=== PATIENT | male | born 1960 | race Caucasian/White ===

== ENCOUNTER 2023-12-06 09:13 | Emergency (ER) | payer BC, SELFPAY ==
[2023-12-06] VITALS (7 sets, daily range): BP systolic 111–216; BP diastolic 66–103; BMI 26.2
[2023-12-06 09:43] LABS: Glucose - Point of Care 232 mg/dl (70-99)
[2023-12-06] MEDS: ZOFRAN 4 MG IV (09:49)
[2023-12-06] MEDS: NSS 1000 IV (09:49)
--- NOTE | 2023-12-06 09:49 | ED.GENMED ---
History of Present Illness
General
Chief Complaint: Blood Pressure Problem
Source: patient and records
Exam Limitations: none
Time Seen by Provider: 12/06/23 09:47
Nursing documentation reviewed up to this point in time: agreed with
Travel History
Have you had any contact with someone who has COVID-19?: No
Do you have any symptoms of coronavirus? Fever > 100 degrees, chills, cough, shortness of breath, sore throat, loss of taste or smell, muscle aches, or headache?: No
History of Present Illness
History of Present Illness:
63 yo male with IDDM, HTN, HLD, PAD, R leg bypass 2019, Left fem pop bypass, former tobacco smoker quit a year ago and started vaping. About 7 weeks ago added marijuana vapes occasionally. Past two nights 'I hit it hard' taking 8 hits instead of 2
of the marijuana vapes. Denies chest pain or SOB, denies abdominal pain other than muscle soreness from vomiting. Started vomiting yesterday a.m. and has been vomiting frequently since, no sleep last night due to vomiting. Started noting dark emesis
this a.m. Denies fever, had a few small diarrheal stools past few days. No blood or change in stool color.
Past History
Past History
ED Past Medical History: HTN, Hypercholesterolemia, IDDM and Other (Peripheral artery disease, Anemia, Pancreatitis)
ED Past Surgical History: Other (Right popliteal stent February 2018)
Social History
Tobacco: Smoker
Alcohol: None
Drug: Marijuana
Personal: Single
Living: with family
Family History
Family History: Diabetes and Hypertension
Review of Systems
Review of Systems
Allergies reviewed?: Yes
All Other Systems: ROS reviewed and negative except as documented in HPI and ROS
Constitutional: Reports fatigue; Denies fever
Respiratory: Denies trouble breathing
Cardiac: Denies chest pain
ABD/GI: Reports nausea and vomiting; Denies abdominal pain, diarrhea, bloody stools or black stools
: Reports difficulty voiding (at times due to BPH); Denies dysuria, flank pain, urgency or bleeding
Musculoskeletal: Reports no symptoms
Skin: Reports no symptoms
Neurological: Reports no symptoms
Phy Exam
Physical Exam
Physical Exam:
GENERAL: Actively retching. A&Ox3.
CONSTITUTIONAL: Afebrile.
EYES: clear, conjunctivae normal
ENMT: moist mucus membranes, Pharynx nl
RESPIRATORY: Regular respirations, nonlabored, lungs clear.
CARDIOVASCULAR: Regular rate and rhythm, no murmurs, no rubs.
GI: Actively retching, small amounts of dark coffee colored fluid
MUSCULOSKELETAL: Moves with ease. Well perfused.
SKIN: Warm, dry, pink
PSYCH: Anxious mood and affect. Well kept, interactive and appropriate
NEUROLOGIC: Awake, alert and oriented. No focal neurological deficits
Course
Orders/Labs/Results
Orders:
Orders
12/06/23 09:28
EKG [Electrocardiogram (*1)] Urgent
Reason for Study: Tachycardia
EKG- Treatment ONCE
12/06/23 09:46
Ondansetron Injectable [Zofran] 4 mg .ROUTE .STK-MED ONE
12/06/23 09:47
Ondansetron Injectable [Zofran] 4 mg IV NOW STA
12/06/23 09:48
0.9% Sodium Chloride 1000 ml [Nss] 1,000 ml IV BOLUS
12/06/23 09:49
Type+Screen Urgent
Complete Blood Count/With Diff Urgent
Comprehensive Metabolic Panel Urgent
Lipase Urgent
Magnesium Urgent
Comment: ADD ON
Prothrombin Time Urgent
12/06/23 10:04
Pantoprazole [Protonix IV] 80 mg IV NOW STA
12/06/23 10:56
Electrocardiogram (*1) Urgent
Reason for Study: Tachycardia
EKG- Treatment ONCE
12/06/23 11:06
Add On- LAB Urgent
Tests Added?: magnesium
12/06/23 12:51
Complete Blood Count/With Diff Urgent
Abnormal Lab Results
12/06/23 12/06/23 12/06/23
09:42 09:49 12:51
WBC 30.2 H 10^3/uL 22.6 H 10^3/uL
(4.8-10.8) (4.8-10.8)
Abs Immat Gran (auto) 0.2 H 10^3/uL 0.1 H 10^3/uL
(0-0.05) (0-0.05)
Absolute Neuts (auto) 26.6 H 10^3/uL 20.1 H 10^3/uL
(1.4-6.5) (1.4-6.5)
Absolute Lymphs (auto) 0.8 L 10^3/uL
(1.2-3.4)
Absolute Monos (auto) 2.1 H 10^3/uL 1.5 H 10^3/uL
(0.1-0.6) (0.1-0.6)
Immature Gran % 0.8 H % 0.6 H %
(0-0.5) (0-0.5)
Neutrophils % 88.0 H % 89.1 H %
(42.2-75.2) (42.2-75.2)
Lymphocytes % 4.0 L % 3.6 L %
(20.5-51.1) (20.5-51.1)
Sodium 134 L mmol/L
(135-145)
Chloride 96 L mmol/L
(98-107)
Carbon Dioxide 21 L mmol/L
(22-30)
BUN 25 H mg/dl
(9-20)
Glucose 254 H mg/dl
(70-99)
Calcium 10.3 H mg/dl
(8.4-10.2)
ALT 72 H U/L
(0-50)
Albumin 5.1 H g/dl
(3.5-5.0)
POC Glucose 232 H mg/dl
(70-99)
12/06/23 12:51
12/06/23 09:49
Vital Signs
Initial and Last Documented VS:
Initial Vital Signs
Temp Pulse Resp BP Pulse Ox
98.3 F 145 20 147/103 97
12/06/23 09:25 12/06/23 09:25 12/06/23 09:25 12/06/23 09:25 12/06/23 09:25
Last Documented Vital Signs
Temp Pulse Resp BP Pulse Ox
98.3 F 94 17 180/88 96
12/06/23 09:25 12/06/23 13:15 12/06/23 13:15 12/06/23 13:00 12/06/23 13:15
[employer] Supervisor consulted with Physician
[employer] Supervisor consulted with physician?: Yes
Name of Physician Consulted: Noh
MDM/Problems Addressed
Differential Diagnosis Includes:
Cyclical vomiting from marijuana, gastritis, GI bleed, dehydration, viral gastroenteritis
MDM/Problems Addressed:
63 yo male with IDDM, HTN, HLD, PAD, R leg bypass 2019, Left fem pop bypass, former tobacco smoker quit a year ago and started vaping. About 7 weeks ago added marijuana vapes occasionally. Past two nights 'I hit it hard' taking 8 hits instead of 2
of the marijuana vapes. Denies chest pain or SOB, denies abdominal pain other than muscle soreness from vomiting. Started vomiting yesterday a.m. and has been vomiting frequently since, no sleep last night due to vomiting. Started noting dark emesis
this a.m. Denies fever, had a few small diarrheal stools past few days. No blood or change in stool color.
Afebrile, actively retching.
12/06/2023 1016 AM
After IV fluids and Zofran patient is resting comfortably and states he feels the best he is felt in 2 days.
Abdomen benign
12/06/2023 1054 AM
CBC: WBC 30.2 with neutrophilia most likely reactive to severe vomiting
CMP consistent with mild dehydration, IV fluids infusing
Lipase WNL
Initial EKG sinus tach w fusion complexes, on monitor frequent bigeminal unifocal PVC's
Will check Magnesium
Will repeat EKG now that he is calm and feeling better:
Will recheck CBC after IVF's and feeling better
Rectal exam: Mucus on gloved finger hematest negative no stool in rectal vault
Anticipating DC home
12/06/2023 1236 PM
Blood pressure 111/66, patient calm and resting
Magnesium within normal limit
Repeat EKG showing bigeminal unifocal PVCs
12/06/2023 1344 PM
Patient has had no further vomiting
Repeat CBC: WBC 22.6
Pt is happy to go home. He will repeat CBC early next week. Rx for Zofran and Protonix x 2 weeks, GI follow up. Pt comfortable with this plan.
Monitor NSR
*EKG
EKG Intrepretation Date: 12/06/23
Interpretation: abnormal
Comparison EKG: changes noted (fusion complexes)
Rate: tachycardiac
Rhythm: sinus
[place]: normal axis
Interval: normal interval
QRS Pattern: normal QRS
Ischemia: no ischemia
*Critical Care Note
Total Time (30-74mins, 75-104mins- exclusive of procedures): Not Applicable
ED Attending Note
-
Portions of this chart may have been created with voice recognition software.� Occasional wrong word or��sound alike� substitutions may have occurred due to the inherent limitations of voice recognition software.
Discharge Plan
Departure
Patient Disposition: Home (Routine Discharge)
Date of Disposition: 12/06/23
Time of Disposition: 13:56
Patient with high blood pressure during this ER visit?: No
Condition: Good
Discharge Problem:
Cyclical vomiting, Gastritis
Instructions: [place] Diet, Gastritis ED, Cannabis hyperemesis syndrome
Prescriptions:
New
ondansetron 4 mg tablet,disintegrating
4 mg PO Q8H PRN (Reason: nausea and vomiting) 5 Days Qty: 14 0RF
No Action
clopidogrel 75 MG tablet
75 mg PO HS Qty: 0 0RF
atorvastatin 80 MG tablet
80 mg PO HS
aspirin 81 MG tablet,delayed release (DR/EC)
81 mg PO HS
metformin 500 mg Tablet
1,000 mg PO BIDWMEAL
clonidine 0.1 mg/24 hr Patch Weekly
1 patch TRANSDERMAL .SEE BELOW
Patient Comments:
12/08/2023, pt. states that he applies this patch on Sundays or Mondays every week; pt. currently wearing a patch on his right upper arm.
insulin lispro 100 unit/mL Insulin Pen
3 unit SC AC
Levemir U-100 Insulin 100 unit/mL Solution
12 unit SC HS
Patient Comments:
12/08/2023, pt. states that he gets his Levemir from his friend; per pt., his friend has given him a lot of Levemir and he is using that until he runs out before starting his Basaglar Kwikpen that was prescribed for him.
pantoprazole [Protonix] 40 mg tablet,delayed release (DR/EC)
40 mg PO DAILY
Referrals:
Favian Diaz MD [Active] - Call in 1-3 days for appt
Adi Cooney DO [Family Provider] - Follow up in 5-7 days
Activity Restrictions/Additional Instructions:
As we discussed, call Dr. Cooney's office today or tomorrow and make an appointment for next week after you get repeat blood work.
Get your blood work rechecked on Monday with the outpatient lab slip I gave you. It has to be done at [facility].
I sent a prescription to your pharmacy for Protonix to reduce the acid in your stomach and for Zofran which you can use as needed for nausea and vomiting.
No more marijuana.
I have provided you with a GI gastrointestinal doctor to follow-up with if needed. Please discuss this with Dr. Cooney next week
Interventions
Interventions:
*Risk Screen - Suicide Last Done: 12/06/23 09:25
*General Assessment Last Done: 12/06/23 09:47
*Neglect/Abuse Screening Last Done: 12/06/23 09:25
*ED COVID-19 Vaccine History Last Done: 12/06/23 09:25
*Nursing Disposition Last Done: 12/06/23 14:21
ED- Cardiac Assessment Last Done: 12/06/23 09:46
ED- Neurological Assessment Last Done: 12/06/23 09:47
ED- Pulmonary Assessment Last Done: 12/06/23 09:47
Discharge Date and Time
Discharge Date/Time: 12/06/23 14:21
[2023-12-06 09:58] LABS: % Basophils 0.3 % (0-2); % Immature Granulocytes 0.8 % (0-0.5); % Monocytes 6.9 % (1.7-9.3); Absolute Basophils 0.1 10^3/uL (0-0.2); Absolute Immature Granulocytes 0.2 10^3/uL (0-0.05); Absolute Lymphocytes 1.2 10^3/uL (1.2-3.4); Absolute Monocytes 2.1 10^3/uL (0.1-0.6); Absolute Neutrophils 26.6 10^3/uL (1.4-6.5); Hematocrit 50.4 % (39.0-52.0); Hemoglobin 17.8 g/dL (13.0-18.0); Mean Corp Hgb Conc. 35.3 g/dL (33.0-37.0); Mean Corpuscular Hgb 30.2 pg (27.0-31.0); Mean Corpuscular Volume 85.6 fL (80.0-94.0); Mean Platelet Volume 10.1 fL (7.4-10.4); Nucleated Red Blood Cells % 0 % (-); Platelet Count 320 10^3/uL (130-400); Red Blood Cell Count 5.89 10^6/uL (4.70-6.10); Red Cell Dist. Width 12.6 % (11.5-14.5); White Blood Cell Count 30.2 10^3/uL (4.8-10.8)
[2023-12-06 10:08] LABS: INR 1.06; PT 13.8 Sec (11.4-14.6)
[2023-12-06] MEDS: PROTONIX IV 80 MG IV (10:15)
[2023-12-06 10:34] LABS: Blood Urea Nitrogen 25 mg/dl (9-20); Glucose 254 mg/dl (70-99)
[2023-12-06 10:35] LABS: Albumin 5.1 g/dl (3.5-5.0); Alkaline Phosphatase 117 U/L (38-126); Calcium 10.3 mg/dl (8.4-10.2); Carbon Dioxide 21 mmol/L (22-30); Chloride 96 mmol/L (98-107); Estimated Creatinine Clearance 62 ml/min; Sodium 134 mmol/L (135-145); eGFR > 60.00
[2023-12-06 10:36] LABS: ALT (SGPT) 72 U/L (0-50); AST (SGOT) 54 U/L (17-59); Lipase 205 U/L (23-300)
[2023-12-06 11:27] LABS: Magnesium 1.8 mg/dl (1.6-2.3)
[2023-12-06 13:00] LABS: % Basophils 0.2 % (0-2); % Immature Granulocytes 0.6 % (0-0.5); % Lymphocytes 3.6 % (20.5-51.1); % Monocytes 6.5 % (1.7-9.3); % Neutrophils 89.1 % (42.2-75.2); Absolute Basophils 0.1 10^3/uL (0-0.2); Absolute Immature Granulocytes 0.1 10^3/uL (0-0.05); Absolute Lymphocytes 0.8 10^3/uL (1.2-3.4); Absolute Monocytes 1.5 10^3/uL (0.1-0.6); Absolute Neutrophils 20.1 10^3/uL (1.4-6.5); Hematocrit 43.9 % (39.0-52.0); Hemoglobin 15.5 g/dL (13.0-18.0); Mean Corp Hgb Conc. 35.3 g/dL (33.0-37.0); Mean Corpuscular Hgb 30.5 pg (27.0-31.0); Mean Corpuscular Volume 86.2 fL (80.0-94.0); Nucleated Red Blood Cells % 0 % (-); Platelet Count 254 10^3/uL (130-400); Red Blood Cell Count 5.09 10^6/uL (4.70-6.10); Red Cell Dist. Width 12.6 % (11.5-14.5); White Blood Cell Count 22.6 10^3/uL (4.8-10.8)
== END 2023-12-06 14:21 | disposition home or self-care (01) ==
LOC: EMR 09:13
PROVIDERS: Emergency Medicine; Registered Nurse; EMERGENCY PHYSICIAN Emergency Medicine; FAMILY PHYSICIAN Family Medicine
DX: R11.15 Cyclical vomiting syndrome unrelated to migraine (principal); K29.70 Gastritis, unspecified, without bleeding; F17.200 Nicotine dependence, unspecified, uncomplicated; E11.9 Type 2 diabetes mellitus without complications; I10 Essential (primary) hypertension; E78.00 Pure hypercholesterolemia, unspecified
CPT/HCPCS: 99284; 96374; 96375; 96361; 80053; 82962; 83690; 83735; 85025; 85610; 86850; 86900; 86901; 93005

== ENCOUNTER 2023-12-08 12:45 | Inpatient (IN) | payer BC, SELFPAY ==
[2023-12-08] VITALS (23 sets, daily range): BP systolic 102–243; BP diastolic 65–116; BMI 25.6; BMI 25.2
[2023-12-08 08:46] LABS: Glucose - Point of Care 217 mg/dl (70-99)
[2023-12-08] MEDS: REGLAN 10 MG IV (09:30)
[2023-12-08] MEDS: BENADRYL 25 MG IV (09:30)
[2023-12-08] MEDS: NSS 1000 IV ×2 (09:40→17:39)
[2023-12-08 09:54] LABS: Venous Blood Gas B.E. 5.1 mmol/L (-4 to +4); Venous Blood Gas O2 Sat % 83.2 %; Venous Blood Gas pCO2 39 mmHg (35-48); Venous Blood Gas pH 7.48 (7.32-7.43); Venous Blood Gas pO2 51 mmHg (30-50)
[2023-12-08 09:55] LABS: % Basophils 0.2 % (0-2); % Eosinophils 0.1 % (0-6); % Immature Granulocytes 0.4 % (0-0.5); % Lymphocytes 8.1 % (20.5-51.1); % Monocytes 7.6 % (1.7-9.3); % Neutrophils 83.6 % (42.2-75.2); Absolute Immature Granulocytes 0.1 10^3/uL (0-0.05); Absolute Lymphocytes 1.1 10^3/uL (1.2-3.4); Absolute Monocytes 1.1 10^3/uL (0.1-0.6); Absolute Neutrophils 11.7 10^3/uL (1.4-6.5); Hematocrit 48.2 % (39.0-52.0); Hemoglobin 17.2 g/dL (13.0-18.0); Mean Corp Hgb Conc. 35.7 g/dL (33.0-37.0); Mean Corpuscular Hgb 30.1 pg (27.0-31.0); Mean Corpuscular Volume 84.3 fL (80.0-94.0); Mean Platelet Volume 10.1 fL (7.4-10.4); Nucleated Red Blood Cells % 0 % (-); Platelet Count 228 10^3/uL (130-400); Red Blood Cell Count 5.72 10^6/uL (4.70-6.10); Red Cell Dist. Width 12.2 % (11.5-14.5)
[2023-12-08 10:07] LABS: APTT 25.9 Sec (23.4-35.0); INR 1.02; PT 13.2 Sec (11.4-14.6)
[2023-12-08 10:09] LABS: ALT (SGPT) 34 U/L (0-50); AST (SGOT) 63 U/L (17-59); Albumin 4.3 g/dl (3.5-5.0); Alkaline Phosphatase 103 U/L (38-126); Blood Urea Nitrogen 27 mg/dl (9-20); Calcium 9.2 mg/dl (8.4-10.2); Carbon Dioxide 26 mmol/L (22-30); Chloride 94 mmol/L (98-107); Estimated Creatinine Clearance 100 ml/min; Glucose 208 mg/dl (70-99); Lipase 201 U/L (23-300); Magnesium 1.8 mg/dl (1.6-2.3); Potassium 3.7 mmol/L (3.5-5.1); Sodium 130 mmol/L (135-145); Total Bilirubin 1.4 mg/dl (0.2-1.3); Total Protein 6.8 g/dl (6.3-8.2); eGFR > 60.00
[2023-12-08 10:28] LABS: Troponin I 0.032 ng/ml
[2023-12-08 10:31] LABS: Lactic Acid 2.9 mmol/L (0.7-2.0)
[2023-12-08] MEDS: MORPHINE SULFATE 4 MG IV (10:36)
--- NOTE | 2023-12-08 10:46 | ED.GENMED ---
History of Present Illness
General
Chief Complaint: Abdominal Pain
Source: patient
Exam Limitations: none
Time Seen by Provider: 12/08/23 08:49
Nursing documentation reviewed up to this point in time: agreed with
Travel History
Have you had any contact with someone who has COVID-19?: No
Do you have any symptoms of coronavirus? Fever > 100 degrees, chills, cough, shortness of breath, sore throat, loss of taste or smell, muscle aches, or headache?: No
History of Present Illness
History of Present Illness:
Patient is a 63-year-old male with a history of hypertension, hyperlipidemia, PAD status post femoropopliteal bypass, insulin-dependent diabetes
presents for the second time in 3 days for nausea and severe vomiting episodes and now with intermittent left lower abdominal pain
When he was here 3 days ago he had admitted that he was vaping and using marijuana. At that time he was pretty dehydrated, hyperglycemic in the 200s, had a leukocytosis of 30,000 and was given IV fluids and Zofran and Protonix and a CBC was
repeated which showed improvement to 22,000. It was thought that his vomiting was a cyclic vomiting syndrome. He says since then he has not vaped. Patient did go home with a prescription for Zofran and Protonix. He took 1 dose yesterday of
Zofran and 1 dose today which was not really helpful. He did have some improvement of the nausea but when he drinks liquids he will vomit. Patient says he developed this colicky lower abdominal pain as well which at times is severe. He feels
better lying in the bed.
pt has h/o HTN and is on clonidine patch which he is wearing
He took his blood pressure yesterday which was 180/80, this morning was 150/90 and then went up to 180/120. Patient has no chest pain or shortness of breath, leg weakness or numbness. He has no history of aortic disease in his chest or abdomen.
Past History
Past History
ED Past Medical History: HTN, Hypercholesterolemia, IDDM and Other (Peripheral artery disease, Anemia, Pancreatitis)
ED Past Surgical History: Other (Right popliteal stent February 2018)
Social History
Tobacco: Smoker
Alcohol: None
Drug: Marijuana
Personal: Single
Living: with family
Family History
Family History: Diabetes and Hypertension
Phy Exam
Physical Exam
Physical Exam:
GENERAL: Alert , uncomfortable appearing,
EYE: pupils equal and reactive
NECK: Supple
ENT: o/p clr, very dry mouth
CARDIAC: Regular rate and rhythm .
LUNGS: Clear breath sounds bilaterally, no acute respiratory distress, no wheezes/rales/rhonchi
ABDOMEN: Soft, mild tenderness left lower quadrant no r/g, no cvat, normal bowel sounds
NEUROLOGICAL: Alert and oriented, no focal neuro deficits
SKIN: Warm and dry, skin intact.
MUSCULOSKELETAL: No edema, well perfused. neg marvin's sign
PSYCH: Anxious.
Course
Orders/Labs/Results
Orders:
Orders
12/08/23 08:57
0.9% Sodium Chloride 1000 ml [Nss] 1,000 ml IV BOLUS
12/08/23 09:02
Electrocardiogram (*1) Urgent
Reason for Study: Abdominal Pain
EKG- Treatment ONCE
12/08/23 09:14
CT Chest/abd/pelvis Angio W/wo Urgent
Comment:
Reason For Exam: htn urgency, abd pain, back pain, vomitnig
12/08/23 09:15
Diphenhydramine [Benadryl] 25 mg IV NOW STA
Metoclopramide [Reglan] 10 mg IV NOW STA
12/08/23 09:41
Comprehensive Metabolic Panel Urgent
Lipase Urgent
Magnesium Urgent
PTT Urgent
Prothrombin Time Urgent
Troponin I Urgent
Venous Blood Gas Urgent
%Oxygen/Room Air: 21
12/08/23 09:42
Complete Blood Count/With Diff Urgent
Lactic Acid Urgent
12/08/23 10:17
Morphine Sulfate 4 mg IV NOW STA
12/08/23 11:20
0.9% Sodium Chloride 1000 ml [Nss] 1,000 ml IV BOLUS
12/08/23 11:31
Urinalysis Reflex To Culture Urgent
Date Specimen was Collected: 12/08/23
Time Specimen was Collected: 11:25
Urine Microscopic Reflex Cult Urgent
Urine Culture Urgent
ALANIS Source: U
Specimen Description:
Date Specimen was Collected: 12/08/23
Time Specimen was Collected: 11:25
12/08/23 12:43
Admit/Transfer Patient As Directed
Co-Sign Provider:
Level of Care: Inpatient admission
Assign to:: Telemetry
Physician / Group: Anuj
Diagnosis: Intractable Vomiting
Reason for Telemetry: Arrhythmia
Date to Stop Telemetry: 12/11/23
Time to Stop Telemetry: 11:00
Reason for Hospitalization: IVFs, Nausea management
Expected length of stay greater than two midnights?: Yes
ELOS- Estimated Length of Stay in days: 3
I certify the patient meets the requirements for IP care: Yes
12/11/23 11:00
DC Protocol for Telemetry ONCE
Abnormal Lab Results
12/08/23 12/08/23 12/08/23
08:45 09:41 09:42
WBC 14.0 H 10^3/uL
(4.8-10.8)
Abs Immat Gran (auto) 0.1 H 10^3/uL
(0-0.05)
Absolute Neuts (auto) 11.7 H 10^3/uL
(1.4-6.5)
Absolute Lymphs (auto) 1.1 L 10^3/uL
(1.2-3.4)
Absolute Monos (auto) 1.1 H 10^3/uL
(0.1-0.6)
Neutrophils % 83.6 H %
(42.2-75.2)
Lymphocytes % 8.1 L %
(20.5-51.1)
VBG pH 7.48 H
(7.32-7.43)
VBG pO2 51 H mmHg
(30-50)
VBG HCO3 29.0 H mmol/L
(22-27)
Sodium 130 L mmol/L
(135-145)
Chloride 94 L mmol/L
(98-107)
BUN 27 H mg/dl
(9-20)
Glucose 208 H mg/dl
(70-99)
Lactic Acid 2.9 H mmol/L
(0.7-2.0)
Total Bilirubin 1.4 H mg/dl
(0.2-1.3)
AST 63 H U/L
(17-59)
Urine Ketones
Leukocyte Esterase Rfl
Urine WBC (Reflex)
Urine Bacteria (Reflex)
Urine Albumin (Reflex)
POC Glucose 217 H mg/dl
(70-99)
12/08/23
11:31
WBC
Abs Immat Gran (auto)
Absolute Neuts (auto)
Absolute Lymphs (auto)
Absolute Monos (auto)
Neutrophils %
Lymphocytes %
VBG pH
VBG pO2
VBG HCO3
Sodium
Chloride
BUN
Glucose
Lactic Acid
Total Bilirubin
AST
Urine Ketones 2+ A
(Negative)
Leukocyte Esterase Rfl 1+ A
(Negative)
Urine WBC (Reflex) 40-50 A /HPF
(0-5)
Urine Bacteria (Reflex) Many A
(Negative)
Urine Albumin (Reflex) 1+ A
(Neg - Trace)
POC Glucose
12/08/23 09:42
12/08/23 09:41
Vital Signs
Initial and Last Documented VS:
Initial Vital Signs
Temp Pulse Resp BP Pulse Ox
97.8 F 92 16 242/116 98
12/08/23 08:42 12/08/23 08:42 12/08/23 08:42 12/08/23 08:42 12/08/23 08:42
Last Documented Vital Signs
Temp Pulse Resp BP Pulse Ox
97.8 F 59 15 135/75 97
12/08/23 08:42 12/08/23 15:15 12/08/23 15:15 12/08/23 15:00 12/08/23 15:15
MDM/Problems Addressed
Differential Diagnosis Includes:
cyclic vomiting, hypertensive emergency/urgency, gastritis
MDM/Problems Addressed:
cristopher barr 63 y/o M wit hh/o PAD, htn, DM; here for 2nd time in 3 days for intractable vomitng (could be [facility], was vaping marijuana); 3 days ago had wbc 30, was dehydrated, givne fluids and zofran and went home but continued to vomit depsite
zofran; was extremely HTN on arrival 230/130 with lower abd pain; lactate is 3, wbc 14, ct c/a/p angio was neg; pt got some iv pain meds and his bp is much better 110/60; admit for iv hydration; advancing diet
*Critical Care Note
Total Time (30-74mins, 75-104mins- exclusive of procedures): Not Applicable
ED Attending Note
-
Portions of this chart may have been created with voice recognition software.� Occasional wrong word or��sound alike� substitutions may have occurred due to the inherent limitations of voice recognition software.
Discharge Plan
Departure
Patient Disposition: Admit
Date of Disposition: 12/08/23
Time of Disposition: 11:21
Admit to: Telemetry
Presentation/result/management discussed w/ accepting MD/DO: Hospitalist
Condition: Fair
Covid-19: Not Applicable
Discharge Problem:
Intractable vomiting, Hypertension
Interventions
Interventions:
*Risk Screen - Suicide Last Done: 12/08/23 08:42
*General Assessment Last Done: 12/08/23 08:42
*Neglect/Abuse Screening Last Done: 12/08/23 08:42
*ED COVID-19 Vaccine History Last Done: 12/08/23 15:20
[2023-12-08 11:52] LABS: Urine Albumin 1+ (Neg - Trace); Urine Bilirubin Negative (Negative); Urine Character Slightly Cloudy (Clear); Urine Color Yellow; Urine Glucose Negative (Negative); Urine Ketone 2+ (Negative); Urine Leukocyte 1+ (Negative); Urine Nitrite Negative (Negative); Urine Occult Blood Negative (Negative); Urine Urobilinogen Negative (Neg - 1+)
[2023-12-08 11:59] LABS: Urine Mucus Few; Urine Squamous Cell 16-20 /LPF (Few)
[2023-12-08 12:00] LABS: Urine Bacteria Many (Negative)
--- NOTE | 2023-12-08 12:00 | PHANOTE ---
12/08/2023, med rec tech, spoke to pt. to obtain their med. history; pt. states that he gets his Levemir from his friend; per pt., his friend has given him a lot of Levemir and he is using that until he runs out before starting his Basaglar Kwikpen
100 unit/mL that was prescribed for him. Was not able to confirm this med. with another source.
[2023-12-08 12:01] LABS: Urine White Cell 40-50 /HPF (0-5)
[2023-12-08 12:02] LABS: Urine Red Blood Cell 0-2 /HPF (0-2)
--- NOTE | 2023-12-08 13:00 | HPS.HSE ---
Addendum entered and electronically signed by Bean Leslie MD 12/08/23 13:30:
I saw and examined the patient.
The RETIREMENT SALES CONSULTANT or PA's note was reviewed and I agree with the note.
Comment: 63-year-old male who has been here on 2 separate occasions the last 3 days in relation intractable emesis initially was seen and was noted to have a marked leukocytosis of 30,000 and was given IV fluids and sent home with a suspect
diagnosis of cannabis hyperemesis syndrome given his history of vaping marijuana. He returns with continued emesis stating that it he is hungry but has no appetite' continues to have frequent emesis with dry heaving. He also describes frequent
urination and lack of emptying. On review of his medical history the patient has been a long-term diabetic for the last 8 years and has underlying neuropathy and peripheral vascular disease for which she is undergone vascular interventions a CT of
the abdomen angiography today did not show any signs of ischemia or dissection and his belly pain is rather benign on exam. He presents with a significant elevation in systolic blood pressures of over 215-2 20 and tachycardia and looks to be volume
depleted sodium is 130 has an elevated lactic acid and urine now looks infected as comparison to 2 days ago.
Suspect cannabis hyperemesis syndrome
-Hypovolemia with tachycardia
-May need to entertain component of diabetic gastroparesis given lack of initial response to antiemetics and clinical presentation with underlying neuropathy and peripheral vascular disease
-In lieu of further antiemetics like Zofran which has been affecting his QTc I would add scheduled Reglan/consider GI consultation if no improvement in next 24 hours
-Add PPI
Hypertensive urgency
-Patient apparently stopped taking his RYAN inhibitor sometime ago and may have not picked up prescription will restart
-Continue clonidine patch can consider tachyphylaxis and increasing dosing from 0.1 0.2 mg weekly
Urinary tract infection
-Will treat with empiric ceftriaxone/patient is symptomatic with frequent urination dysuria and apparent BPH untreated
-Start on alpha blockade with tamsulosin/may have bladder outlet obstruction from BPH/also seen on CT imaging
-Consider urologic consult
-Added bladder scan to assess for residual
-Continue IV fluids
Is a comorbidities as discussed with RETIREMENT SALES CONSULTANT and agree with assessment and plan as outlined below
Type 2 diabetes mellitus
-Suspect some lack of compliance since he is using another person's prescription of Levemir
-Check A1c
-In addition neuropathy may have underlying gastroparesis
PAD
-Continue aspirin and Plavix
Lactic acidosis
-Main fact as noted be in relation to metformin although may also be in relation to underlying sepsis
-White count as recently as 2 days ago was 30,000 now down to 14,000 continue to trend
Original Note:
Family Physician
-
Family Physician: Adi Cooney
Chief Complaint
-
Intractable Vomiting
History of Present Illness
Pt is a 63yo M w/ a PMH of HTN, HLD, PAD, and DM-II presenting to the ED c/o nausea and vomiting x 3 days. The pt presented to the ED for intractable vomiting on 12/06/23 and was sent home with Protonix and Zofran which he states he was able to take
once with no resolution of his symptoms. He states the emesis is bilious and occurs frequently along with several episodes of dry heaving. He admits to anxiety, LLQ and periumbilical abd pain. He states he has not eaten in 2 days and is experiencing
a loss of appetite, and has not had a BM in 3 days. He appears to have increased urinary frequency as he needed to void several times over the past hour, with some urgency. He admits to using a marijuana vape for the last two months and admits to
increasing his use in the last week or so. He denies alcohol use.
Medical History
Past Medical History
Past Medical History: Reports Other
Additional Past Medical History:
Peripheral Artery Disease
Essential Hypertension
Hyperlipidemia
Diabetes Mellitus, Type II
Diabetes Neuropathy
Past Surgical History: Reports Other
Additional Past Surgical History:
RLE Bypass x 2
LLE Angioplasty
Social History
Tobacco: Other (Former smoker for 40 year. Quit one year ago. Currently vaping.)
Alcohol: None
Drug: Marijuana (Started using marijuana about 2 months ago, now using daily)
Family History
Family History: Not pertinent
Allergies / Home Medications
Allergies reflects when Allergies were last updated in [employer].
Home Medications with original date entered in [employer]
Allergy/Medication List:
Allergies
Allergy/AdvReac Type Severity Reaction Status Date / Time
No Known Allergies Allergy Verified 12/08/23 08:42
Home Medications
clopidogrel 75 mg tablet 75 mg PO HS Blood clot prevention/tx ##0 05/17/21
aspirin 81 mg tablet,delayed release 81 mg PO HS Blood clot prevention/tx 07/13/22
atorvastatin 80 mg tablet 80 mg PO HS High cholesterol 07/13/22
ondansetron 4 mg disintegrating tablet 4 mg PO Q8H PRN nausea and vomiting 5 days #14 tabs 12/06/23
pantoprazole 40 mg tablet,delayed release (Protonix) 40 mg PO DAILY #14 tabs 12/06/23
clonidine 0.1 mg/24 hr weekly transdermal patch 1 patch transdermal .SEE BELOW 12/08/23
insulin detemir U-100 100 unit/mL subcutaneous solution (Levemir U-100 Insulin) 12 unit SC HS 12/08/23
insulin lispro 100 unit/mL subcutaneous pen 3 unit SC AC 12/08/23
metformin 500 mg tablet 1,000 mg PO BIDWMEAL 12/08/23
Review of Systems
-
A 12 point ROS was completed and negative except as noted: Yes
Constitutional: Reports Fatigue; Denies Fever or Chills
Respiratory: Denies Cough or Trouble Breathing
Cardiac: Denies Chest Pain or Palpitations
Abdomen/GI: Reports See HPI
: Reports See HPI
Physical Exam
Vital Signs
Vital Signs
Temp Pulse Resp BP Pulse Ox
97.8 F 64 15 141/73 95
12/08/23 08:42 12/08/23 11:00 12/08/23 11:00 12/08/23 11:00 12/08/23 11:00
Physical Exam
General: Comfortable and Conversant
HEENT: NormoCephalic, Anicteric and Atraumatic
Respiratory: Clear and Non Labored Respirations
Cardiac: S1/S2 and Regular Rhythm
GI: Soft, Non Distended, Normal Bowel Sounds and Tender (Supra-pubic region without rebound or guarding)
Rectal: Deferred by Provider
Musculoskeletal: No Clubbing, No Cyanosis and No Edema
Skin: Warm and Dry
Neuro: Awake, Alert and Oriented
Laboratory Results
-
12/08/23 09:42
12/08/23 09:41
Laboratory Results
PT 13.2 Sec (11.4-14.6) 12/08/23 09:41
INR 1.02 12/08/23 09:41
APTT 25.9 Sec (23.4-35.0) 12/08/23 09:41
Lactic Acid 2.9 mmol/L (0.7-2.0) H 12/08/23 09:42
Total Bilirubin 1.4 mg/dl (0.2-1.3) H 12/08/23 09:41
AST 63 U/L (17-59) H 12/08/23 09:41
ALT 34 U/L (0-50) 12/08/23 09:41
Alkaline Phosphatase 103 U/L (38-126) 12/08/23 09:41
Troponin I 0.032 ng/ml 12/08/23 09:41
Lipase 201 U/L (23-300) 12/08/23 09:41
Data Reviewed
-
Lab Data: Labs Reviewed by me
Impression/Plan
-
Intractable vomiting, suspect cannabis hyperemesis syndrome with possible component of gastroparesis
-Add Reglan 5mg AC
-Continue Zofran prn
-Encourage marijuana cessation
Urinary Tract Infection
-Continue Rocephin
-Await urine culture
-Start Flomax and monitor bladder scan for possible retention
Hyponatremia, secondary to volume depletion
-Continue IVFs
-Recheck sodium in AM
Lactic Acidosis, suspect related to metformin
-Continue IVFs
-Recheck lactic acid later today
Uncontrolled Hypertension
-Add lisinopril 10mg Daily
-Add hydralazine prn
-Continue clonidine patch
Peripheral Artery Disease
-Continue aspirin and Plavix
Hyperlipidemia
-Continue atorvastatin
Diabetes Mellitus, Type II
-Check HgbA1c
-Continue Levemir at half usual dose due to poor oral intake
-Hold metformin due to lactic acidosis
-Monitor sugars and continue coverage insulin
DVT proph: Lovenox
Code Status: Full Code
--- NOTE | 2023-12-08 15:18 | CM ---
CM reviewed medical records. CM met with patient in room. Patient confirmed demographics. Patient lives independently with spouse. Patient denies history of VN, SNF. Patient does rely on a cane at times. Patient is active with his PCP. Patient uses
[facility] for medication services.
PLAN: home no needs.
[2023-12-08 15:59] LABS: Lactic Acid 1.5 mmol/L (0.7-2.0)
[2023-12-08] MEDS: APRESOLINE 10 MG IV (16:46)
[2023-12-08 16:52] LABS: Glucose - Point of Care 154 mg/dl (70-99)
[2023-12-08 17:18] LABS: Glucose - Point of Care 155 mg/dl (70-99)
[2023-12-08] MEDS: ROCEPHIN 1000 MG IV (17:50)
[2023-12-08] MEDS: LOVENOX 40 MG SC (17:50)
[2023-12-08] MEDS: STERILE WATER FOR INJECTION 10 ML IV (17:50)
[2023-12-08] MEDS: ZESTRIL PO (17:53)
--- NOTE | 2023-12-08 18:11 | TRANSFER ---
Pt transferred from ED to 320 at 1620. Vitals taken and BP found to be 215/110. notified, pt feeling very lethargic and 'unwell'. Other vitals stable, assessment complete by this RN. pt on room air. HR then spiked to 150's and this RN called
rapid response. BP still elevated at 189/90 after giving hydrazaline per MD order. See rapid response note. Pt comfortable in bed now with call jensen available.
[2023-12-08] MEDS: LIPITOR 80 MG PO (20:22)
[2023-12-08] MEDS: FLOMAX 0.400000000000000022 MG PO (20:22)
[2023-12-08] MEDS: PLAVIX 75 MG PO (20:24)
[2023-12-08] MEDS: ASPIR LOW (ENTERIC COATED) 81 MG PO (20:24)
[2023-12-08] MEDS: ZOFRAN 4 MG IV (20:25)
[2023-12-08 21:27] LABS: Glucose - Point of Care 155 mg/dl (70-99)
[2023-12-08] MEDS: LEVEMIR 0.0599999999999999978 UNITS SC (22:25)
[2023-12-09] VITALS (7 sets, daily range): BP systolic 126–211; BP diastolic 73–114
[2023-12-09] MEDS: NSS 1000 IV ×3 (02:56→20:09)
[2023-12-09] MEDS: REGLAN 5 MG PO ×3 (06:33→16:05)
[2023-12-09 07:12] LABS: Hematocrit 46.3 % (39.0-52.0); Hemoglobin 16.9 g/dL (13.0-18.0); Mean Corp Hgb Conc. 36.5 g/dL (33.0-37.0); Mean Corpuscular Hgb 30.7 pg (27.0-31.0); Platelet Count 256 10^3/uL (130-400); Red Blood Cell Count 5.51 10^6/uL (4.70-6.10); Red Cell Dist. Width 12.2 % (11.5-14.5); White Blood Cell Count 11.8 10^3/uL (4.8-10.8)
[2023-12-09] MEDS: ZOFRAN 4 MG IV ×2 (07:16→16:07)
[2023-12-09] MEDS: APRESOLINE 10 MG IV ×2 (07:16→16:02)
[2023-12-09 07:37] LABS: Blood Urea Nitrogen 17 mg/dl (9-20); Calcium 8.6 mg/dl (8.4-10.2); Carbon Dioxide 30 mmol/L (22-30); Chloride 97 mmol/L (98-107); Estimated Creatinine Clearance 114 ml/min; Glucose 136 mg/dl (70-99); Potassium 3.5 mmol/L (3.5-5.1); Sodium 133 mmol/L (135-145); eGFR > 60.00
--- NOTE | 2023-12-09 08:24 | W.PN.HOSP.TC ---
Today's Communication/Plan
-
Hypertensive urgency I believe may be contributing to his presentation of change in mental status as intermittent along with his hyperemesis
As needed beta-blockade for tachycardia and BP
Hold off and discontinue clonidine
Workup for pheochromocytoma
Workup for possible hyperaldosteronism
Cardiology consult
May also benefit from anxiolytic in the short-term
Assessment / Plan
Assessment / Plan
63-year-old male who has been here on 2 separate occasions the last 3 days in relation intractable emesis initially was seen and was noted to have a marked leukocytosis of 30,000 and was given IV fluids and sent home with a suspect diagnosis of
cannabis hyperemesis syndrome given his history of vaping marijuana.� He returns with continued emesis stating that it he is hungry but has no appetite' continues to have frequent emesis with dry heaving.� He also describes frequent urination and
lack of emptying.� On review of his medical history the patient has been a long-term diabetic for the last 8 years and has underlying neuropathy and peripheral vascular disease for which she is undergone vascular interventions a CT of the abdomen
angiography today did not show any signs of ischemia or dissection and his belly pain is rather benign on exam.� He presents with a significant elevation in systolic blood pressures of over 215-2 20 and tachycardia and looks to be volume depleted
sodium is 130 has an elevated lactic acid and urine now looks infected as comparison to 2 days ago.
Hypertensive urgency/contributing to nausea and vomiting?/Encephalopathy?
-Patient apparently stopped taking his RYAN inhibitor sometime ago and may have not picked up prescription will restart
-Had been on clonidine which will be discontinued
-Had been on lisinopril but was noncompliant and stopped taking it
-Heart rate has been all over the place and wide swings in blood pressure to as high as 210/110 with change in mental status when high
-Should assess for metabolic abnormality and/or endocrinologic obtain catecholamine and metanephrines/add as needed benzodiazepine for anxiety
-Aldosterone renin ratio/renal artery ultrasound
-Will get cardiology input
Urinary tract infection
-Will treat with empiric ceftriaxone/patient is symptomatic with frequent urination dysuria and apparent BPH untreated
-Start on alpha blockade with tamsulosin/may have bladder outlet obstruction from BPH/also seen on CT imaging
-Consider urologic consult
-Added bladder scan to assess for residual
-Continue IV fluids
Is a comorbidities as discussed with MASTER MOTORCYCLE TECHNICIAN and agree with assessment and plan as outlined below
Type 2 diabetes mellitus
-Suspect some lack of compliance since he is using another person's prescription of Levemir
-Check A1c
-In addition neuropathy may have underlying gastroparesis
PAD
-Continue aspirin and Plavix
Lactic acidosis
-Main fact as noted be in relation to metformin although may also be in relation to underlying sepsis
-White count as recently as 2 days ago was 30,000 now down to 14,000 continue to trend
Hyperemesis first dismissed as possible marijuana related
-Obtain urine drug screen
Anticipated Discharge: 24 - 48 hours
Subjective/Interval History
-
Date of Service: December 09, 2023
No emesis since arrival but continues to have/full sensation in his head but not described as a headache no visual disturbance but easily confused and loses train of thought especially when blood pressures are elevated has intermittent tachycardia
in the 150s and then quickly reverts to rate of 90-100
Objective Data
-
Labs:
Laboratory Results
12/09/23 12/09/23
06:42 06:43
WBC 11.8 H
Hgb 16.9
Hct 46.3
Plt Count 256
Sodium 133 L
Potassium 3.5
Chloride 97 L
Carbon Dioxide 30
BUN 17
Creatinine 0.7
Glucose 136 H
Calcium 8.6
Vital Signs:
Vital Signs
Temp Pulse Resp BP Pulse Ox
98.0 F 81 12 222/110 96
12/09/23 04:02 12/09/23 04:02 12/09/23 04:02 12/09/23 07:16 12/09/23 04:02
I&O
12/08/23 12/09/23 12/10/23
06:59 06:59 06:59
Intake Total 2820 / 2820
Output Total 1999
Balance 820 / 820
Review of Systems
-
History Source: Patient
Constitutional: Reports No Symptoms
Respiratory: Reports No Symptoms
Cardiac: Reports No Symptoms
Abdomen/GI: Reports No Symptoms
Genitourinary: Reports No Symptoms
Psych: Reports Anxious
Physical Exam
-
General: Well Developed
HEENT: Normocephalic
Respiratory: Clear to Auscultation
Cardiac: Irregular Rhythm and Tachycardic
GI: Soft and Nontender
Skin: Dry
Neuro: Oriented and Other (Poor memory and loses his train of thought especially when blood pressures are elevated)
Psych: Calm
[2023-12-09] MEDS: ZESTRIL 40 MG PO (08:35)
[2023-12-09] MEDS: PROTONIX 40 MG PO (08:37)
[2023-12-09 08:42] LABS: Glucose - Point of Care 200 mg/dl (70-99)
[2023-12-09 08:44] LABS: Glycohemoglobin (HgbA1c) 7.5 % (4.0-5.6)
[2023-12-09] MEDS: ATIVAN 0.5 MG IV (08:44)
[2023-12-09] MEDS: NSS (PRESERVATIVE FREE) 0.25 ML IV (08:44)
[2023-12-09] MEDS: NOVOLOG FLEXPEN-MODERATE RESISTANCE 3 UNITS SC ×2 (08:46→12:20)
--- NOTE | 2023-12-09 08:53 | CON.CAR ---
Addendum entered and electronically signed by Alexx Motley MD 12/09/23 10:23:
63 yo male with PMH of HTN, PVC's, PAD, tobacco abuse is admitted with nausea/vomiting. We are consulted for BP management in setting of HTN urgency. Exam with irregular rhythm, no murmurs, no edema. Cr 0.7.
# HTN, severe
-lisinopril added by hospitalist, and secondary work up sent
-add coreg and titrate
-will likely need multiple agents
# Ectopy: PAC's, PVC's, paroxysmal SVT
-start coreg, and titrate
-echo
Original Note:
Consultation
Consultation Request
Date/Time Consultation Requested: 12/09/23822
Date/Time Consultation Performed: 12/09/23849
Requesting Provider: Dr. Leslie
Performing Provider: Shannon THORNTON for Dr. Motley
Reason for Consultation: hypertensive urgency, tachycardia
Medical History
-
Chief Complaint: nausea/vomiting
History of Present Illness:
63 y/o male with hypertension, dyslipidemia, DM on insulin, PAD, mildly dilated aortic root who presents with several days of nausea and vomiting. He also feels palpitations and pulsing in his head at times. His BP is severely elevated and is
improving with medical therapy. He is in no distress at the time of my assessment. He is tachycardic at times on monitor as well.
Past Medical History
Past Medical History: HTN, Hypercholesterolemia, IDDM and Other (PAD)
Social History
Tobacco: Vaping
Drug: Marijuana
Employment: Retired
Family History
Family History: CAD (dad had bypass in his 60's or 70's)
Allergies / Home Medications
Allergy/AdvReac Type Severity Reaction Status Date / Time
No Known Allergies Allergy Verified 12/08/23 08:42
Medication Instructions Recorded Confirmed Type
clopidogrel 75 mg tablet 75 mg PO HS Blood clot 05/17/21 12/08/23 Rx
prevention/tx ##0
aspirin 81 mg tablet,delayed 81 mg PO HS Blood clot 07/13/22 12/08/23 History
release prevention/tx
atorvastatin 80 mg tablet 80 mg PO HS High cholesterol 07/13/22 12/08/23 History
ondansetron 4 mg disintegrating 4 mg PO Q8H PRN nausea and 12/06/23 12/08/23 Rx
tablet vomiting 5 days #14 tabs
clonidine 0.1 mg/24 hr weekly 1 patch transdermal .SEE 12/08/23 12/08/23 History
transdermal patch BELOW Blood Pressure
insulin detemir U-100 100 unit/mL 12 unit SC HS Diabetes 12/08/23 History
subcutaneous solution (Levemir
U-100 Insulin)
insulin lispro 100 unit/mL 3 unit SC AC Diabetes 12/08/23 12/08/23 History
subcutaneous pen
metformin 500 mg tablet 1,000 mg PO BIDWMEAL Diabetes 12/08/23 12/08/23 History
pantoprazole 40 mg tablet,delayed 40 mg PO DAILY Gastrointestinal 12/08/23 12/08/23 History
release (Protonix) Issue
Review of Systems
-
History Source: Patient
All other systems: Negative unless noted
Cardiac: Palpitations
Abdomen/GI: Nausea and Vomiting
Neurological: Other (head pulsing)
Physical Exam
Vital Signs
Temp Pulse Resp BP Pulse Ox
97.8 F 95 14 182/78 96
12/09/23 07:00 12/09/23 08:35 12/09/23 07:00 12/09/23 08:35 12/09/23 07:00
Lab Results
12/09/23 06:43
12/09/23 06:42
Troponin I 0.032 ng/ml 12/08/23 09:41
Physical Exam
General: Well Developed, Well Nourished and No Apparent Distress
HEENT: Normocephalic and Anicteric
Respiratory: Clear and Non Labored Respirations
Cardiac: Regular Rhythm
Musculoskeletal: No Edema
Skin: Warm and Dry
Neuro: AO x 3
Psych: Calm
Impression / Plan
-
Hypertensive urgency:
-BP severely elevated on arrival, but is improving
-meds adjusted by primary team- clonidine stopped and lisinopril and metoprolol added- will adjust to Coreg- monitor BP's
-secondary work-up initiated as well
-echo this admit
PVC's, tachycardia:
-tele reviewed SR, ST, SVT episodes (short), and bigeminy
-check echo
-monitor with BB as above
Nausea/vomiting:
-got Benadryl and Reglan
Suspected UTI, evidence for BPH:
-being treated with ABX
-started on BPH meds per primary team
DM2, on insulin:
-follow sugars, management per hospitalists
PAD:
-on aspirin and statin
HLD:
-on statin
Data Reviewed
-
EKG: Tracing Personally Visualized and interpreted (NSR 64 [address])
CT Scan: Report Reviewed by me (CT chest/A/P: No findings to suggest thoracic/abdominal aortic aneurysm or dissection.)
Medical Tests (Nuc Med, Echo etc): Report Reviewed by me (lexiscan stress test 07/08/22: Overall normal Lexiscan stress test) and Other (echo 11/05/19: Normal biventricular size and systolic function without regional wall motion abnormality. No
significant valvular disease.)
Labs: Labs Reviewed by me
[2023-12-09] MEDS: COREG 6.25 MG PO ×2 (10:07→20:12)
[2023-12-09 10:54] LABS: Amphetamines Negative (Negative); Barbiturates Negative (Negative); Benzodiazepines Negative (Negative); Buprenorphine Negative (Negative); Cocaine Negative (Negative); Marijuana Positive (Negative); Methadone Negative (Negative); Methamphetamines Negative (Negative); Opiates Negative (Negative); Phencyclidine Negative (Negative); Tricyclic Antidepressants Negative (Negative)
[2023-12-09 12:13] LABS: Glucose - Point of Care 230 mg/dl (70-99)
[2023-12-09 16:05] LABS: Glucose - Point of Care 136 mg/dl (70-99)
[2023-12-09] MEDS: NOVOLOG FLEXPEN-MODERATE RESISTANCE SC (16:05)
[2023-12-09] MEDS: STERILE WATER FOR INJECTION 10 ML IV (18:14)
[2023-12-09] MEDS: LOVENOX 40 MG SC (18:14)
[2023-12-09] MEDS: ROCEPHIN 1000 MG IV (18:14)
[2023-12-09] MEDS: LIPITOR 80 MG PO (20:11)
[2023-12-09] MEDS: PLAVIX 75 MG PO (20:11)
[2023-12-09] MEDS: FLOMAX 0.400000000000000022 MG PO (20:12)
[2023-12-09] MEDS: ASPIR LOW (ENTERIC COATED) 81 MG PO (20:12)
[2023-12-09] MEDS: TUMS 1 TABLET PO (20:45)
[2023-12-09 21:11] LABS: Glucose - Point of Care 129 mg/dl (70-99)
[2023-12-09] MEDS: LEVEMIR 0.0599999999999999978 UNITS SC (23:10)
[2023-12-10 03:30] VITALS: BP 123/73
[2023-12-10] MEDS: NSS 1000 IV (04:07)
[2023-12-10] MEDS: ATIVAN 0.5 MG IV (06:40)
[2023-12-10] MEDS: NSS (PRESERVATIVE FREE) 0.25 ML IV (06:40)
[2023-12-10 07:10] LABS: Hematocrit 44.8 % (39.0-52.0); Hemoglobin 15.3 g/dL (13.0-18.0); Mean Corp Hgb Conc. 34.2 g/dL (33.0-37.0); Mean Corpuscular Hgb 30.1 pg (27.0-31.0); Mean Platelet Volume 10.4 fL (7.4-10.4); Platelet Count 245 10^3/uL (130-400); Red Blood Cell Count 5.09 10^6/uL (4.70-6.10); Red Cell Dist. Width 11.9 % (11.5-14.5); White Blood Cell Count 10.8 10^3/uL (4.8-10.8)
[2023-12-10 07:38] LABS: ALT (SGPT) 26 U/L (0-50); AST (SGOT) 34 U/L (17-59); Albumin 3.4 g/dl (3.5-5.0); Alkaline Phosphatase 68 U/L (38-126); Blood Urea Nitrogen 19 mg/dl (9-20); Calcium 8.8 mg/dl (8.4-10.2); Carbon Dioxide 29 mmol/L (22-30); Chloride 94 mmol/L (98-107); Estimated Creatinine Clearance 114 ml/min; Glucose 135 mg/dl (70-99); Potassium 3.6 mmol/L (3.5-5.1); Sodium 132 mmol/L (135-145); Total Bilirubin 1.3 mg/dl (0.2-1.3); Total Protein 5.7 g/dl (6.3-8.2); eGFR > 60.00
[2023-12-10 07:46] LABS: Glucose - Point of Care 122 mg/dl (70-99)
[2023-12-10 07:50] VITALS: BP 149/78
[2023-12-10] MEDS: NOVOLOG FLEXPEN-MODERATE RESISTANCE SC (08:09)
[2023-12-10] MEDS: ZESTRIL 40 MG PO (08:15)
[2023-12-10] MEDS: COREG 6.25 MG PO (08:15)
[2023-12-10] MEDS: PROTONIX 40 MG PO (08:15)
[2023-12-10] MEDS: REGLAN 5 MG PO ×3 (08:16→18:07)
[2023-12-10] MEDS: ZOFRAN 4 MG IV (08:26)
--- NOTE | 2023-12-10 08:37 | W.PN.HOSP.TC ---
Today's Communication/Plan
-
Given the rapid improvement in blood pressure tend to doubt significant neuroendocrine involvement to his blood pressure elevation but will need follow-up of catecholamines and metanephrines along with aldosterone levels
Will await speciation of the urine culture
Can discontinue IV fluids
Appreciate cardiology input
Await 2D echocardiogram
Still some overlying anxiety issues that are new for him
Assessment / Plan
Assessment / Plan
63-year-old male who has been here on 2 separate occasions the last 3 days in relation intractable emesis initially was seen and was noted to have a marked leukocytosis of 30,000 and was given IV fluids and sent home with a suspect diagnosis of
cannabis hyperemesis syndrome given his history of vaping marijuana.� He returns with continued emesis stating that it he is hungry but has no appetite' continues to have frequent emesis with dry heaving.� He also describes frequent urination and
lack of emptying.� On review of his medical history the patient has been a long-term diabetic for the last 8 years and has underlying neuropathy and peripheral vascular disease for which she is undergone vascular interventions a CT of the abdomen
angiography today did not show any signs of ischemia or dissection and his belly pain is rather benign on exam.� He presents with a significant elevation in systolic blood pressures of over 215-2 20 and tachycardia and looks to be volume depleted
sodium is 130 has an elevated lactic acid and urine now looks infected as comparison to 2 days ago.
Hypertensive urgency/contributing to nausea and vomiting?/Encephalopathy?
-Patient apparently stopped taking his RYAN inhibitor sometime ago and may have not picked up prescription will restart
-Had been on clonidine which will be discontinued/tachyphylaxis with this
-Had been on lisinopril but was noncompliant and stopped taking it
-Heart rate has been all over the place and wide swings in blood pressure to as high as 210/110 with change in mental status when high
-Should assess for metabolic abnormality and/or endocrinologic obtain catecholamine and metanephrines/add as needed benzodiazepine for anxiety
-Aldosterone renin ratio/renal artery ultrasound
-Will get cardiology input/placed on carvedilol
-Blood pressure and heart rate significant improved and symptomatic improvement
Urinary tract infection/strep species not Enterococcus
-Will treat with empiric ceftriaxone/patient is symptomatic with frequent urination dysuria and apparent BPH untreated
-Start on alpha blockade with tamsulosin/may have bladder outlet obstruction from BPH/also seen on CT imaging
-Consider urologic consult
-Added bladder scan to assess for residual
-IV fluids will be discontinued today
Type 2 diabetes mellitus
-Suspect some lack of compliance since he is using another person's prescription of Levemir
-Check A1c elevated at 7.5
-In addition neuropathy may have underlying gastroparesis
-Open patient regimen now that he is making more sense with Levemir 12 units nightly and lispro insulin with meals 3 units
PAD
-Continue aspirin and Plavix
Lactic acidosis
-May in fact as be in relation to metformin although may also be in relation to underlying sepsis
-White count as recently as 2 days ago was 30,000 now down to 14,000 continue to trend
-UTI
Hyperemesis first dismissed as possible marijuana related
-Obtain urine drug screen>> turned out to be only positive for marijuana
Anticipated Discharge: 24 - 48 hours
Subjective/Interval History
-
Date of Service: December 10, 2023
Feeling significantly better denies any further emesis and only some minor nausea tolerated liquid diet yesterday still feels 'neurosis events that are new for me'
Objective Data
-
Labs:
Laboratory Results
12/10/23
06:17
WBC 10.8
Hgb 15.3
Hct 44.8
Plt Count 245
Sodium 132 L
Potassium 3.6
Chloride 94 L
Carbon Dioxide 29
BUN 19
Creatinine 0.7
Glucose 135 H
Calcium 8.8
Total Bilirubin 1.3
AST 34
ALT 26
Alkaline Phosphatase 68
Vital Signs:
Vital Signs
Temp Pulse Resp BP Pulse Ox
97.3 F 62 18 149/78 94
12/10/23 07:50 12/10/23 08:15 12/10/23 07:50 12/10/23 08:15 12/10/23 07:50
I&O
12/09/23 12/10/23 12/11/23
06:59 06:59 06:59
Intake Total 2820 / 2820 3180 / 3180
Output Total 1999 / 1999 240 / 240
Balance 820 / 820 2940 / 2940
Review of Systems
-
History Source: Patient
Constitutional: Reports Weakness
EENT: Reports No Symptoms Reported
Respiratory: Reports No Symptoms
Cardiac: Reports No Symptoms
Abdomen/GI: Reports No Symptoms
Genitourinary: Reports No Symptoms
Musculoskeletal: Reports No Symptoms and Myalgias
Neuro: Reports No Symptoms
Psych: Reports Anxious
Physical Exam
-
General: Well Developed
HEENT: Normocephalic
Respiratory: Clear to Auscultation
Cardiac: Regular Rhythm (Frequent PACs on monitor still rate down to the 60s)
GI: Soft
Skin: Warm
Neuro: Awake, Alert, Oriented, AO x 3, No Motor Deficits and Nonfocal/Grossly Intact
Psych: Anxious
Data Reviewed
-
CT Scan: Report Reviewed by me
Labs: Labs Reviewed by me (Leukocytosis now normalized/sodium 132 blood sugar 135/glycohemoglobin 7.5/urinalysis and culture now growing strep species not Enterococcus)
[2023-12-10] MEDS: APRESOLINE 10 MG IV (11:49)
[2023-12-10] MEDS: NOVOLOG FLEXPEN-MODERATE RESISTANCE 1 UNITS SC ×2 (11:50→18:07)
[2023-12-10 11:51] LABS: Glucose - Point of Care 163 mg/dl (70-99)
--- NOTE | 2023-12-10 13:05 | W.PN.CD ---
Today's Communication / Plan
-
increase coreg to 12.5mg bid
add amlodipine 5mg daily
continue lisinopril
echo tomorrow
Impression / Plan
-
Hypertensive urgency:
-BP severely elevated on arrival, but is improving
-meds adjusted by primary team- clonidine stopped and lisinopril added
-secondary work-up initiated as well
-increase coreg to 12.5mg bid
-add amlodipine 5mg daily
-echo tomorrow
PVC's, tachycardia:
-tele with frequent PVC's, PAC's, brief runs SVT
-check echo
-coreg
Nausea/vomiting:
-per primary team
Suspected UTI, evidence for BPH:
-being treated with ABX
-started on BPH meds per primary team
DM2, on insulin:
-follow sugars, management per hospitalists
PAD:
-on aspirin/plavix and statin
HLD:
-on statin
Physical Exam
Vital Signs/Labs
Vital Signs
Temp Pulse Resp BP Pulse Ox
97.8 F 108 18 185/90 98
12/10/23 11:39 12/10/23 11:39 12/10/23 11:39 12/10/23 11:49 12/10/23 11:39
12/09/23 12/10/23 12/11/23
06:59 06:59 06:59
Actual Weight 79.651 kg
12/10/23 06:17
12/10/23 06:17
PT 13.2 Sec (11.4-14.6) 12/08/23 09:41
INR 1.02 12/08/23 09:41
APTT 25.9 Sec (23.4-35.0) 12/08/23 09:41
Magnesium 2.0 mg/dl (1.6-2.3) 12/09/23 06:42
LAB Results
12/08/23
09:41
Troponin I 0.032
Physical Exam
Constitutional: No acute distress
EENT: Moist mucous membranes
Cardiovascular: Rhythm & rate is regular, Pedal edema is absent, JVD pressure is normal and Systolic murmur absent
Respiratory: Respiratory effort normal and Lungs clear to auscul.
Neuro/Psych: Oriented
Data Reviewed
-
Date of Service: December 10, 2023
EKG: Other (Tele: SR, frequent PVC's)
Labs: Labs Reviewed by me
[2023-12-10] MEDS: NORVASC 5 MG PO (14:16)
[2023-12-10 15:20] VITALS: BP 143/83
[2023-12-10 16:55] LABS: Glucose - Point of Care 199 mg/dl (70-99)
[2023-12-10] MEDS: LOVENOX 40 MG SC (18:07)
[2023-12-10] MEDS: ROCEPHIN 1000 MG IV (18:08)
[2023-12-10] MEDS: STERILE WATER FOR INJECTION 10 ML IV (18:08)
[2023-12-10 19:31] VITALS: BP 115/68
[2023-12-10 21:25] LABS: Glucose - Point of Care 138 mg/dl (70-99)
[2023-12-10] MEDS: FLOMAX 0.400000000000000022 MG PO (21:48)
[2023-12-10] MEDS: ASPIR LOW (ENTERIC COATED) 81 MG PO (21:48)
[2023-12-10] MEDS: LIPITOR 80 MG PO (21:48)
[2023-12-10] MEDS: PLAVIX 75 MG PO (21:48)
[2023-12-10] MEDS: LEVEMIR 0.100000000000000006 UNITS SC (21:49)
[2023-12-10] MEDS: COREG 12.5 MG PO (21:49)
[2023-12-10 23:00] VITALS: BP 124/57
[2023-12-11 03:27] VITALS: BP 101/57
[2023-12-11 06:53] LABS: Blood Urea Nitrogen 28 mg/dl (9-20); Calcium 8.9 mg/dl (8.4-10.2); Carbon Dioxide 31 mmol/L (22-30); Chloride 97 mmol/L (98-107); Estimated Creatinine Clearance 80 ml/min; Glucose 125 mg/dl (70-99); Potassium 3.6 mmol/L (3.5-5.1); Sodium 133 mmol/L (135-145); eGFR > 60.00
[2023-12-11 07:00] VITALS: BP 145/79
[2023-12-11] MEDS: NOVOLOG FLEXPEN-MODERATE RESISTANCE SC ×2 (07:30→17:53)
[2023-12-11] MEDS: REGLAN PO (07:30)
[2023-12-11 08:26] LABS: Glucose - Point of Care 195 mg/dl (70-99)
--- NOTE | 2023-12-11 10:39 | W.PN.CD ---
Today's Communication / Plan
-
continue coreg 12.5mg bid
continue amlodipine 5mg daily
continue lisinopril 40mg daily
echo today
if echo looks OK, he is stable from cardiac perspective. we will arrange for follow up with us.
he can use hydralazine 10mg prn at home if SBP >180
Impression / Plan
-
Hypertensive urgency:
-BP severely elevated on arrival, but has improved with med mgmt
-meds adjusted by primary team- clonidine stopped and lisinopril added
-secondary work-up initiated as well
-continue coreg 12.5mg bid
-continue amlodipine 5mg daily
-continue lisinopril 40mg daily
-echo today
PVC's, tachycardia:
-tele with frequent PVC's, PAC's, brief runs SVT: significantly improved with addition of coreg
-check echo
Nausea/vomiting:
-per primary team
Suspected UTI, evidence for BPH:
-being treated with ABX
-started on BPH meds per primary team
DM2, on insulin:
-follow sugars, management per hospitalists
PAD:
-on aspirin/plavix and statin
HLD:
-on statin
Physical Exam
Vital Signs/Labs
Vital Signs
Temp Pulse Resp BP Pulse Ox
97.7 F 56 17 145/79 97
12/11/23 07:00 12/11/23 07:00 12/11/23 07:00 12/11/23 07:00 12/11/23 07:00
12/10/23 06:17
12/11/23 06:04
PT 13.2 Sec (11.4-14.6) 12/08/23 09:41
INR 1.02 12/08/23 09:41
APTT 25.9 Sec (23.4-35.0) 12/08/23 09:41
Magnesium 2.0 mg/dl (1.6-2.3) 12/09/23 06:42
Physical Exam
Constitutional: No acute distress and Comfortable
EENT: Moist mucous membranes
Cardiovascular: Rhythm & rate is regular, Pedal edema is absent, JVD pressure is normal and Systolic murmur absent
Respiratory: Respiratory effort normal, Lungs clear to auscul. and Wheeze Absent
GI: Distention absent
Neuro/Psych: AO x 3
Data Reviewed
-
Date of Service: December 11, 2023
EKG: Other (Tele: SR 50s-60s, rare PVC's)
[2023-12-11 11:00] VITALS: BP 144/75
--- NOTE | 2023-12-11 11:15 | W.PN.HOSP.TC ---
Today's Communication/Plan
-
await urine final results
monitor BP
ECHO
US renal artery
Assessment / Plan
Assessment / Plan
63-year-old male who has been here on 2 separate occasions the last 3 days in relation intractable emesis initially was seen and was noted to have a marked leukocytosis of 30,000 and was given IV fluids and sent home with a suspect diagnosis of
cannabis hyperemesis syndrome given his history of vaping marijuana.� He returns with continued emesis stating that it he is hungry but has no appetite' continues to have frequent emesis with dry heaving.� He also describes frequent urination and
lack of emptying.� On review of his medical history the patient has been a long-term diabetic for the last 8 years and has underlying neuropathy and peripheral vascular disease for which she is undergone vascular interventions a CT of the abdomen
angiography today did not show any signs of ischemia or dissection and his belly pain is rather benign on exam.� He presents with a significant elevation in systolic blood pressures of over 215-2 20 and tachycardia and looks to be volume depleted
sodium is 130 has an elevated lactic acid and urine now looks infected as comparison to 2 days ago.
Hypertensive urgency/contributing to nausea and vomiting?/Encephalopathy?
-Had been on clonidine which will be discontinued
-Heart rate has been all over the place and wide swings in blood pressure to as high as 210/110 with change in mental status when high
-Should assess for metabolic abnormality and/or endocrinologic obtain catecholamine and metanephrines/add as needed benzodiazepine for anxiety
-Aldosterone renin ratio pending
-US renal artery pending
-echo pending
-Continue norvasc 5mg daily, coreg 12.5mg BID and lisinopril 40mg daily.
-Monitor HR wtih activity
-hydralazine prn
Urinary tract infection/strep species not Enterococcus
-Will treat with empiric ceftriaxone/patient is symptomatic with frequent urination dysuria and apparent BPH untreated
-Start on alpha blockade with tamsulosin/may have bladder outlet obstruction from BPH/also seen on CT imaging
-Added bladder scan to assess for residual
-IV fluids will be discontinued
Type 2 diabetes mellitus
-Suspect some lack of compliance since he is using another person's prescription of Levemir
-Check A1c elevated at 7.5
-In addition neuropathy may have underlying gastroparesis
-Cont Levemir 12 units nightly and lispro insulin with meals 3 units
-POC 195
PAD
-Continue aspirin and Plavix
Lactic acidosis
-May in fact as be in relation to metformin although may also be in relation to underlying sepsis
-White count as recently as 2 days ago was 30,000 now down to 14,000 continue to trend
-UTI
Hyperemesis first dismissed as possible marijuana related
-Obtain urine drug screen>> turned out to be only positive for marijuana
DVT ppx -lovenox
Anticipated Discharge: Within 24 hours
Subjective/Interval History
-
Date of Service: December 11, 2023
denies cp or sob.
Objective Data
-
Labs:
Laboratory Results
12/11/23
06:04
Sodium 133 L
Potassium 3.6
Chloride 97 L
Carbon Dioxide 31 H
BUN 28 H
Creatinine 1.0
Glucose 125 H
Calcium 8.9
Vital Signs:
Vital Signs
Temp Pulse Resp BP Pulse Ox
97.7 F 56 17 145/79 97
12/11/23 07:00 12/11/23 07:00 12/11/23 07:00 12/11/23 07:00 12/11/23 07:00
I&O
12/10/23 12/11/23 12/12/23
06:59 06:59 06:59
Intake Total 3180 / 3180 660 / 660
Output Total 240 / 240 400 / 400
Balance 2940 / 2940 260 / 260
Physical Exam
-
General: Well Developed
HEENT: Normocephalic
Respiratory: Clear to Auscultation
Cardiac: Regular Rhythm (Frequent PACs on monitor still rate down to the 60s) and S1/S2
GI: Soft, Nontender, Nondistended and Normal Bowel Sounds
Skin: Warm
Neuro: Awake, Alert, Oriented, AO x 3, No Motor Deficits and Nonfocal/Grossly Intact
Psych: Anxious
Data Reviewed
-
Total Time Spent with Patient (in minutes): 54
[2023-12-11] MEDS: NORVASC 5 MG PO (11:48)
[2023-12-11] MEDS: COREG 12.5 MG PO (11:48)
[2023-12-11] MEDS: ZESTRIL 40 MG PO (11:48)
[2023-12-11] MEDS: REGLAN 5 MG PO ×2 (11:49→17:54)
[2023-12-11] MEDS: PROTONIX 40 MG PO (11:49)
[2023-12-11 12:17] LABS: Glucose - Point of Care 191 mg/dl (70-99)
[2023-12-11] MEDS: NOVOLOG FLEXPEN-MODERATE RESISTANCE 1 UNITS SC (12:29)
[2023-12-11 16:21] VITALS: BP 143/77
[2023-12-11 16:59] LABS: Glucose - Point of Care 108 mg/dl (70-99)
--- NOTE | 2023-12-11 17:04 | CM ---
Reviewed chart, patient remains at baseline level of functioning. Will have no needs from CM.
Plan: Case management will continue to follow and assist with discharge planning. Home when stable.
--- NOTE | 2023-12-11 17:47 | PTCARENOTE ---
Patient angry because three doctors told him he was going home today (he has two doctors). Patient made the same statement at 1200 today. Patient was explained the plan of care: renal us, echo, IV antibiotics, no discharge at present. At that time
patient verbalized understanding. RN verbalized that she would reach out to the hospitalist and confirm if there was a possible discharge today. Patient starting yelling, 'You are not listening to me. Do not call the doctor.' RN asked the patient
multiple times ' What can I do for you?' Patient stated, 'Someone could have told me 3 hours ago I was not going home.' RN ended the conversation as it was felt like the conversation kept going in circles.
[2023-12-11] MEDS: LOVENOX 40 MG SC (17:53)
[2023-12-11] MEDS: STERILE WATER FOR INJECTION 10 ML IV (17:54)
[2023-12-11] MEDS: ROCEPHIN 1000 MG IV (17:54)
[2023-12-11 19:44] VITALS: BP 115/59
[2023-12-11 21:54] LABS: Glucose - Point of Care 124 mg/dl (70-99)
[2023-12-11] MEDS: LIPITOR 80 MG PO (22:00)
[2023-12-11] MEDS: PLAVIX 75 MG PO (22:00)
[2023-12-11] MEDS: FLOMAX 0.400000000000000022 MG PO (22:01)
[2023-12-11] MEDS: ATIVAN 0.5 MG PO (22:01)
[2023-12-11] MEDS: LEVEMIR 0.100000000000000006 UNITS SC (22:01)
[2023-12-11] MEDS: ASPIR LOW (ENTERIC COATED) 81 MG PO (22:01)
[2023-12-11 23:18] VITALS: BP 108/61
--- NOTE | 2023-12-11 23:52 | PTCARENOTE ---
Patient's BP-108/68, HR- 40s- 50s. Updated HILLARY Garcia. Order to hold tonight dose.
[2023-12-11] MEDS: COREG PO (23:54)
[2023-12-12 04:09] VITALS: BP 135/76
[2023-12-12 07:00] VITALS: BP 125/70
[2023-12-12 07:08] LABS: Glucose - Point of Care 143 mg/dl (70-99)
--- NOTE | 2023-12-12 09:32 | PN.CDI ---
CDI
- -
CDI:
Physician Documentation Request
Admit Date: 12/08/23 12:45
Dear Doctor Yunior,
Patient admitted with hypertensive urgency.
Na levels documented below.
Patient received IV NSS.
Laboratory Tests
12/08/23 12/09/23 12/10/23
09:41 06:42 06:17
Sodium 130 L 133 L 132 L
12/11/23
06:04
Sodium 133 L
Based on the above, could you clarify in the progress notes, the appropriate diagnosis, if significant, that supports the above abnormalities and additional evaluation, monitoring and/or treatment rendered:
Hyponatremia
Insignificant abnormal lab finding
Other
Unable to determine
Use of terms such as suspected, likely, concern for, or probable (associated with a specific diagnosis that is being evaluated, monitored, or treated as if it exists) are acceptable and can be coded in the inpatient setting, when documented at the
time of discharge.
Thank you,
Cheyanne GLEZN,RN,CCDS
CDI Specialist
Available via tiger text
Please use your independent medical judgment in providing your response.
[2023-12-12 09:55] LABS: Aldosterone, Serum 4.8 ng/dL; Aldosterone/Renin Activ Ratio 1.6 ratio (<=25.0); Renin Activity Results 3.1 ng/mL/hr
[2023-12-12] MEDS: REGLAN 5 MG PO ×2 (10:11→12:32)
[2023-12-12] MEDS: NORVASC 5 MG PO (10:11)
[2023-12-12] MEDS: PROTONIX 40 MG PO (10:11)
[2023-12-12] MEDS: ZESTRIL 40 MG PO (10:11)
[2023-12-12] MEDS: NOVOLOG FLEXPEN-MODERATE RESISTANCE SC (10:17)
[2023-12-12] MEDS: COREG 6.25 MG PO (10:25)
--- NOTE | 2023-12-12 11:14 | W.PN.HOSP.TC ---
Addendum entered and electronically signed by Brandon Mojica MD 12/12/23 15:17:
MILD HYPONATREMIA
Addendum entered and electronically signed by Brandon Mojica MD 12/12/23 11:38:
Patient states he takes lispro 3 units prior to meals and still remains with mild hyperglycemia at home. Takes 12 weeks of Lantus at home and sugars have remained stable and on the higher side and no severe episode of hypoglycemia. Recommended
patient to continue home regimen.
Original Note:
Today's Communication/Plan
-
Po abx on dc
bp control
OP f/u
Assessment / Plan
Assessment / Plan
63-year-old male who has been here on 2 separate occasions the last 3 days in relation intractable emesis initially was seen and was noted to have a marked leukocytosis of 30,000 and was given IV fluids and sent home with a suspect diagnosis of
cannabis hyperemesis syndrome given his history of vaping marijuana.� He returns with continued emesis stating that it he is hungry but has no appetite' continues to have frequent emesis with dry heaving.� He also describes frequent urination and
lack of emptying.� On review of his medical history the patient has been a long-term diabetic for the last 8 years and has underlying neuropathy and peripheral vascular disease for which she is undergone vascular interventions a CT of the abdomen
angiography today did not show any signs of ischemia or dissection and his belly pain is rather benign on exam.� He presents with a significant elevation in systolic blood pressures of over 215-2 20 and tachycardia and looks to be volume depleted
sodium is 130 has an elevated lactic acid and urine now looks infected as comparison to 2 days ago.
Hypertensive urgency/contributing to nausea and vomiting?/Encephalopathy?
-Had been on clonidine which will be discontinued
-Heart rate has been all over the place and wide swings in blood pressure to as high as 210/110 with change in mental status when high
-Should assess for metabolic abnormality and/or endocrinologic obtain catecholamine and metanephrines/add as needed benzodiazepine for anxiety
-Aldosterone renin ratio pending -op f/u.
-US renal artery without significant stenosis
-echo normal biventricular size and systolic function without regional wall motion abnormality. No significant valvular disease. Dilated aortic out at 4.3 cm. No significant changes compared to prior study 04/17/2020.
-Continue norvasc 5mg daily, coreg 6.125 mg and lisinopril 40mg daily.
-Monitor HR wtih activity- HR in 55-60 and coreg decreased
-hydralazine prn
Urinary tract infection/strep species not Enterococcus
-Will treat with empiric ceftriaxone/patient is symptomatic with frequent urination dysuria and apparent BPH untreated
-Start on alpha blockade with tamsulosin/may have bladder outlet obstruction from BPH/also seen on CT imaging
-Added bladder scan to assess for residual
-IV fluids will be discontinued
-Switch to po antibiotics on dc.
Type 2 diabetes mellitus
-Suspect some lack of compliance since he is using another person's prescription of Levemir
-Check A1c elevated at 7.5
-In addition neuropathy may have underlying gastroparesis
-Cont Levemir 12 units nightly and lispro insulin with meals 3 units
-POC 143
PAD
-Continue aspirin and Plavix
Lactic acidosis
-May in fact as be in relation to metformin although may also be in relation to underlying sepsis
-White count as recently as 2 days ago was 30,000 now down to 14,000 continue to trend
Hyperemesis-resolved. UDS positive for marijuana.
DVT ppx -lovenox
More than 30 minutes spent in discharge including
Final examination of the patient
Summarizing hospital stay
Instructions for continuing care to all relevant caregivers
Preparation of discharge records, prescriptions, and referral forms
Total time spent (in minutes): 40
Anticipated Discharge: Today
Subjective/Interval History
-
Date of Service: December 12, 2023
Feeling better
Denies any chest pain shortness of breath or headache.
Tolerating diet
Objective Data
-
Vital Signs:
Vital Signs
Temp Pulse Resp BP Pulse Ox
98.2 F 68 16 125/70 95
12/12/23 07:00 12/12/23 10:25 12/12/23 07:00 12/12/23 10:25 12/12/23 07:00
I&O
12/11/23 12/12/23 12/13/23
06:59 06:59 06:59
Intake Total 660 / 660 800 / 800
Output Total 400 / 400
Balance 260 / 260 800 / 800
Physical Exam
-
General: Well Developed, Well Nourished and No Apparent Distress
HEENT: Normocephalic, Atraumatic and Moist Mucous Membranes
Respiratory: Clear to Auscultation
Cardiac: Regular Rhythm and S1/S2
GI: Soft, Nontender, Nondistended and Normal Bowel Sounds
Skin: Warm
Neuro: Awake, Alert, Oriented, AO x 3, No Motor Deficits and Nonfocal/Grossly Intact
Psych: Calm and Anxious
--- NOTE | 2023-12-12 11:40 | W.DCSUMMARY ---
Discharge Summary
Discharge Data
Date of Admission: 12/08/23
Date of Discharge: 12/12/23
-
Pending Results: Yes
Hospital Course
63-year-old male past medical history of diabetes mellitus, peripheral arterial disease, hypertension, who is presenting with an episode of severe nausea and vomiting. Patient was stating of decreased appetite. Patient was also found to
significantly have low blood pressure with systolic blood pressure greater than 200s. Patient initially was started on clonidine. Patient was started on blood pressure medication including lisinopril cardiology was consulted. Patient was started
on Norvasc, carvedilol and lisinopril. Clonidine was discontinued. Patient blood pressure started to stabilize. Patient underwent secondary workup for blood pressure. He ultrasound to renal artery without significant stenosis. Aldosterone and
renin ratio within normal limits. Patient was recommended to follow-up with catecholamines and metanephrines with primary doctor. Patient was also found to have a urinary tract infection with Streptococcus and was started on IV ceftriaxone which
was transitioned to p.o. Keflex on discharge. Also had lactic acidosis on admission which resolved. Patient with CT abdomen pelvis which noted to have an enlarged prostate. Patient did not have significant PVR on bladder scan. IV fluid was
discontinued. Patient states at home he was taking Lantus 12 units and NovoLog 3 units and his sugars have been stable. Recommend to continue home regimen. Patient underwent echocardiogram which showed normal biventricular size and systolic
function. Patient was recommended follow-up outpatient with primary doctor and cardiology.
Discharge Plan
-
Patient Disposition: Home (Routine Discharge)
Discharge Diagnosis/Procedures: Hypertension emergency
Urinary tract infection
Lactic acidosis
Hyperemesis
Condition: Fair
Diet: Low Cholesterol and Diabetic, Carb Controlled
Activity: With assistance and As tolerated
Driving Restrictions: As prior to admission
Referrals:
Alxex Motley MD [Active] - in three to four weeks
Adi Cooney DO [Family Provider] - in less than 1 week
Brandon Galvan MD [Active] - in two to three weeks
Prescriptions:
New
carvedilol 6.25 mg Tablet
6.25 mg PO BID 30 Days Qty: 60 0RF
lisinopril 20 mg Tablet
40 mg PO DAILY 30 Days Qty: 60 0RF
amlodipine 5 mg Tablet
5 mg PO DAILY 30 Days Qty: 30 0RF
tamsulosin 0.4 mg Capsule
0.4 mg PO HS 30 Days Qty: 30 0RF
hydralazine 10 mg tablet
10 mg PO TID PRN (Reason: SBP>180) Qty: 90 0RF
cephalexin 500 mg capsule
500 mg PO Q6H 10 Days Qty: 40 0RF
Continued
clopidogrel 75 MG tablet
75 mg PO HS Qty: 0 0RF
atorvastatin 80 MG tablet
80 mg PO HS
aspirin 81 MG tablet,delayed release (DR/EC)
81 mg PO HS
ondansetron 4 mg tablet,disintegrating
4 mg PO Q8H PRN (Reason: nausea and vomiting) 5 Days Qty: 14 0RF
metformin 500 mg Tablet
1,000 mg PO BIDWMEAL
insulin lispro 100 unit/mL Insulin Pen
3 unit SC AC
pantoprazole [Protonix] 40 mg tablet,delayed release (DR/EC)
40 mg PO DAILY
Levemir U-100 Insulin 100 unit/mL Solution
12 unit SC HS Qty: 0 0RF
Patient Comments:
12/08/2023, pt. states that he gets his Levemir from his friend; per pt., his friend has given him a lot of Levemir and he is using that until he runs out before starting his Basaglar Kwikpen that was prescribed for him.
Discontinued
clonidine 0.1 mg/24 hr Patch Weekly
1 patch TRANSDERMAL .SEE BELOW
Patient Comments:
12/08/2023, pt. states that he applies this patch on Sundays or Mondays every week; pt. currently wearing a patch on his right upper arm.
Discharge Orders:
Discharge Patient (As Directed); Ordered 12/12/23
Ordered By: Brandon Mojica
Discharge Date and Time
Discharge Date/Time: 12/12/23 14:10
[2023-12-12 12:13] LABS: Glucose - Point of Care 200 mg/dl (70-99)
[2023-12-12] MEDS: ROCEPHIN 1000 MG IV ×2 (12:28)
[2023-12-12] MEDS: NOVOLOG FLEXPEN-MODERATE RESISTANCE 3 UNITS SC (12:29)
[2023-12-12] MEDS: STERILE WATER FOR INJECTION 10 ML IV (12:32)
[2023-12-12 19:09] LABS: 24 Hour Urine Total Volume Random mL; Creatinine, Urine per Volume 36 mg/dL; Dopamine, Urine 55 ug/L; Dopamine/Creatinine Ratio 153 ug/g CRT (0-250); Epinephrine, Urine 11 ug/L; Epinephrine/Creatinine Ratio 31 ug/g CRT (0-20); Norepinephrine, Urine 72 ug/L; Norepinephrine/Creatinine Rat 200 ug/g CRT (0-45); Urine Collection Length Random hr
[2023-12-12 20:56] LABS: 24 Hour Urine Total Volume Random mL; Creatinine, Urine per Volume 36 mg/dL; Metanephrine, Urine 60 ug/L; Metanephrine/Creatinine Ratio 167 ug/g CRT (0-300); Normetanephrine, Urine 189 ug/L; Normetanephrine/Creatinine Rat 525 ug/g CRT (0-400); Urine Collection Length Random hr
== END 2023-12-12 14:10 | disposition home or self-care (01) | DRG 305 ==
LOC: 3 WEST ACU 12:45
PROVIDERS: Physician Assistant; Physician Assistant Medical; ADMITTING PHYSICIAN Internal Medicine; ATTENDING PHYSICIAN Hospitalist; CONSULT PHYSICIAN Internal Medicine; EMERGENCY PHYSICIAN Student in an Organized Health Care Education/Training Program; FAMILY PHYSICIAN Family Medicine
DX: I16.1 Hypertensive emergency (principal); N39.0 Urinary tract infection, site not specified; E87.20 Acidosis, unspecified; E87.1 Hypo-osmolality and hyponatremia; R11.10 Vomiting, unspecified; E86.1 Hypovolemia; E11.51 Type 2 diabetes mellitus with diabetic peripheral angiopathy without gangrene; I10 Essential (primary) hypertension; F12.188 Cannabis abuse with other cannabis-induced disorder; N40.0 Benign prostatic hyperplasia without lower urinary tract symptoms; E78.5 Hyperlipidemia, unspecified
CPT/HCPCS: 71275; 74174; 80048; 80053; 80306; 81003; 81015; 82088; 82384; 82805; 82962; 83036; 83605; 83690; 83735; 83835; 84244; 84484; 85025; 85027; 85610; 85730; 87070; 87077; 87086; 93005; 93306; 93975; 96374; 96375; 99285; Q9967

== ENCOUNTER → 2023-12-19 15:09 | Outpatient (REF) | payer BC, SELFPAY ==
[2023-12-19 16:35] LABS: % Basophils 0.5 % (0-2); % Eosinophils 3.5 % (0-6); % Immature Granulocytes 0.5 % (0-0.5); % Lymphocytes 19.2 % (20.5-51.1); % Monocytes 7.4 % (1.7-9.3); % Neutrophils 68.9 % (42.2-75.2); Absolute Basophils 0.1 10^3/uL (0-0.2); Absolute Eosinophils 0.4 10^3/uL (0-0.7); Absolute Immature Granulocytes 0.1 10^3/uL (0-0.05); Absolute Lymphocytes 2.1 10^3/uL (1.2-3.4); Absolute Monocytes 0.8 10^3/uL (0.1-0.6); Absolute Neutrophils 7.7 10^3/uL (1.4-6.5); Hematocrit 42.2 % (39.0-52.0); Hemoglobin 14.4 g/dL (13.0-18.0); Mean Corp Hgb Conc. 34.1 g/dL (33.0-37.0); Mean Corpuscular Hgb 30.4 pg (27.0-31.0); Mean Platelet Volume 10.5 fL (7.4-10.4); Nucleated Red Blood Cells % 0 % (-); Platelet Count 262 10^3/uL (130-400); Red Blood Cell Count 4.74 10^6/uL (4.70-6.10); Red Cell Dist. Width 12.8 % (11.5-14.5); White Blood Cell Count 11.1 10^3/uL (4.8-10.8)
== END ==
LOC: REG 15:09
PROVIDERS: ATTENDING PHYSICIAN Family Medicine
DX: Z09 Encounter for follow-up examination after completed treatment for conditions other than malignant neoplasm (principal)
CPT/HCPCS: 36415; 85025

== ENCOUNTER 2024-09-28 01:43 | Inpatient (IN) | payer BC, SELFPAY ==
[2024-09-27] VITALS (15 sets, daily range): BP systolic 68–214; BP diastolic 47–107
[2024-09-27 20:33] LABS: Glucose - Point of Care 217 mg/dl (70-99)
--- NOTE | 2024-09-27 21:10 | ED.GENMED ---
History of Present Illness
General
Chief Complaint: Blood Sugar Problem
Source: patient
Time Seen by Provider: 09/27/24 20:59
History of Present Illness
History of Present Illness:
This patient is a 64-year-old male with a history of insulin-dependent diabetes who presents emergency department after not feeling well after having skipping dinner last night at around 4:30 PM. He says he forgot to bring his insulin with him and
by 6 PM he developed several episodes of nonbloody vomiting. This is associated with polyuria and episodes of diaphoresis. He states that he has been vomiting ever since, without blood or coffee-ground associated with nausea and generalized
weakness. He sometimes feels dizzy when he stands up. Did take his insulin when he got home last night as well as a small dose this morning. He only tolerated a cup of tea and half a banana today. He denies abdominal pain and in fact is hungry
but cannot hold anything down. He states he is had this before and I do note a diagnosis of cyclical vomiting and marijuana use as recently as November 2023. He also was hospitalized November 2023 an noted to be extremely hypertensive
Past History
Past History
ED Past Medical History: HTN, Hypercholesterolemia, IDDM and Other (Peripheral artery disease, Anemia, Pancreatitis)
ED Past Surgical History: Other (Right popliteal stent February 2018)
Social History
Tobacco: Smoker
Alcohol: None
Drug: Marijuana
Personal:
Living: with family
Family History
Family History: Diabetes and Hypertension
Phy Exam
Physical Exam
Physical Exam:
GENERAL: Alert , in no apparent distress but appears restless
EYE: pupils equal and reactive
NECK: Supple, no significant adenopathy.
ENT: o/p clr, mm dry, several episodes of retching noted
CARDIAC: Regular rate and rhythm .
LUNGS: Clear breath sounds bilaterally, no acute respiratory distress, no wheezes/rales/rhonchi
ABDOMEN: Soft, without focal tenderness, no r/g, no cvat
NEUROLOGICAL: Alert and oriented, no focal neuro deficits
SKIN: Warm and dry, skin intact.
MUSCULOSKELETAL: No edema, well perfused.
PSYCH: Normal and appropriate interaction.
Course
Orders/Labs/Results
Orders:
Orders
09/27/24 20:35
Electrocardiogram (*1) Urgent
Reason for Study: Tachycardia
EKG- Treatment ONCE
09/27/24 21:03
B-Hydroxybutyrate Urgent
Complete Blood Count/With Diff Urgent
Comprehensive Metabolic Panel Urgent
Lipase Urgent
09/27/24 21:08
0.9% Sodium Chloride 1000 ml [Nss] 1,000 ml IV BOLUS
0.9% Sodium Chloride 1000 ml [Nss] 1,000 ml IV BOLUS
Ondansetron Injectable [Zofran] 4 mg IV NOW STA
09/27/24 21:45
CT Abd/Pel (IV only)-DH only Urgent
Comment:
Reason For Exam: INTRACT VOMITING
09/27/24 22:08
Clonidine [Catapres] 0.1 mg PO NOW STA
09/27/24 23:32
Insulin Human Regular [Novolin R] 8 units IV NOW STA
09/27/24 23:36
LevoFLOXacin 500 MG/100 ML [Levaquin] 500 mg in 100 ml IV NOW
MetroNIDAZOLE 500 MG/100 ML [Flagyl 500 mg] 100 ml IV NOW
09/27/24 23:37
Urinalysis Reflex To Culture Urgent
Date Specimen was Collected: 09/27/24
Time Specimen was Collected: 23:46
Abnormal Lab Results
09/27/24 09/27/24 09/27/24
20:32 21:03 23:21
WBC 23.6 H 10^3/uL
(4.8-10.8)
Abs Immat Gran (auto) 0.2 H 10^3/uL
(0-0.05)
Absolute Neuts (auto) 20.3 H 10^3/uL
(1.4-6.5)
Absolute Monos (auto) 1.8 H 10^3/uL
(0.1-0.6)
Immature Gran % 0.6 H %
(0-0.5)
Neutrophils % 86.4 H %
(42.2-75.2)
Lymphocytes % 5.2 L %
(20.5-51.1)
Chloride 94 L mmol/L
(98-107)
BUN 25 H mg/dl
(9-20)
Glucose 246 H mg/dl
(70-99)
B-Hydroxybutyrate 0.34 H mmol/L
(0.02-0.27)
POC Glucose 217 H mg/dl 221 H mg/dl
(70-99) (70-99)
09/27/24 21:03
09/27/24 21:03
Vital Signs
Initial and Last Documented VS:
Initial Vital Signs
Temp Pulse Resp BP Pulse Ox
98.2 F 141 22 145/100 98
09/27/24 20:35 09/27/24 20:35 09/27/24 20:35 09/27/24 20:35 09/27/24 20:35
Last Documented Vital Signs
Temp Pulse Resp BP Pulse Ox
98.2 F 77 20 176/81 95
09/27/24 20:35 09/27/24 22:45 09/27/24 22:45 09/27/24 22:45 09/27/24 22:02
Update Note
Update Note:
Patient presents to the Emergency Department with ___intractable vomiting
Number and Complexity of Problems Addressed at the Encounter
� Chronic conditions affecting care:
� Acute Exacerbation and/or Progression of Chronic Illness:
� Differential Diagnosis includes: But not limited to cyclic vomiting syndrome, gastroparesis related to diabetes, DKA, viral illness, etc. etc.
Amount and/or Complexity of Data to be Reviewed and Analyzed
� I performed an independent evaluation of and my interpretation is:
EKG: Read by me, normal sinus rhythm, normal rate, normal axis, no acute ischemia
CT: Vision read 'subtle uncomplicated diverticulitis involving the mid sigmoid colon in the left pelvis with very mild MAD[place] diverticular stranding no evidence of an intra-abdominal abscess or free air. Mild wall thickening in
the distal esophagus with a small amount of periesophageal fluid suggesting esophagitis possibly secondary to the reported history of vomiting. Significant enlargement of the prostate cannot gland thickening the bladder wall may be related to
bladder outlet obstruction and/or UTI correlate with UA no evidence for bowel obstruction or
Xrays:
Laboratory Studies: Markedly elevated white blood cell count, mild hyperglycemia without associated acidosis
Other:
� Review of other/old records reveals: Echo done November 2023 showed normal ventricular size and function, noted to be extremely hypertensive and new meds were started
� Clinical information was obtained by an independent historian:
� Prescriptions/Medications Considered but not given:
� Further testing considered but not performed:
Risk of Complications and/or Morbidity or Mortality of Patient Management
� Social determinants of health affecting care:
� Discussion with other providers (PCP, Hospitalists, Consultants, etc):
� Escalation of care including admission/observation vs risk of discharge considered: Patient's vomiting has stopped, and he is getting some rest/sleeping. Overall concern regarding repeated vomiting, hyperglycemia,
diverticulitis, hypertension. Patient has been hydrated, given insulin, antibiotics. RN instructed to perform a straight cath on him to decompress his bladder and analyze the UA. Discussed with Dr. Fontenot for admission
Note: pt had episode for about 20 min of hypotension. Not specifically with sxs, awake alert and talking but rn noted diaphoretic. no cp. no sob. upon myh exam, skin dry, bp now sbp 120's. In review of prior notes he has had swings in his bp,
and was given clonidine earlier tonight. Overaell pt noncompliant with his dm management, as well as enlarged prostate survellience. He just urinated, RN to do bladder scan. u/a pending.
ED Attending Note
-
Portions of this chart may have been created with voice recognition software.� Occasional wrong word or��sound alike� substitutions may have occurred due to the inherent limitations of voice recognition software.
Discharge Plan
Departure
Patient Disposition: Admit
Date of Disposition: 09/27/24
Time of Disposition: 23:39
Admit to: Telemetry
Presentation/result/management discussed w/ accepting MD/DO: Hospitalist
Condition: Fair
Discharge Problem:
Diverticulitis, Vomiting, Hyperglycemia
Prescriptions:
No Action
clopidogrel 75 MG tablet
75 mg PO HS Qty: 0 0RF
atorvastatin 80 MG tablet
80 mg PO HS
aspirin 81 MG tablet,delayed release (DR/EC)
81 mg PO HS
metformin 500 mg Tablet
1,000 mg PO BIDWMEAL
pantoprazole [Protonix] 40 mg tablet,delayed release (DR/EC)
40 mg PO DAILY
carvedilol 6.25 mg Tablet
6.25 mg PO BID 30 Days Qty: 60 0RF
lisinopril 20 mg Tablet
40 mg PO DAILY 30 Days Qty: 60 0RF
amlodipine 5 mg Tablet
5 mg PO DAILY 30 Days Qty: 30 0RF
tamsulosin 0.4 mg Capsule
0.4 mg PO HS 30 Days Qty: 30 0RF
insulin aspart U-100 100 unit/mL (3 mL) insulin pen
3 unit SC AC
insulin glargine [Basaglar KwikPen U-100 Insulin] 100 unit/mL (3 mL) insulin pen
12 unit SC HS
Referrals:
Adi Cooney DO [Family Provider] -
Interventions
Interventions:
*Risk Screen - Suicide Last Done: 09/27/24 22:07
*General Assessment Last Done: 09/27/24 22:07
*Neglect/Abuse Screening Last Done: 09/27/24 22:07
ED- Fall Risk Assessment Last Done: 09/27/24 22:24
*ED COVID-19 Vaccine History Last Done: 09/27/24 22:07
ED- Neurological Assessment Last Done: 09/27/24 21:05
Discharge Date and Time
Print Language: BARBADIAN
[2024-09-27 21:20] LABS: Hematocrit 50.4 % (39.0-52.0); Hemoglobin 17.3 g/dL (13.0-18.0); Mean Corp Hgb Conc. 34.3 g/dL (33.0-37.0); Mean Corpuscular Hgb 30.5 pg (27.0-31.0); Mean Corpuscular Volume 88.9 fL (80.0-94.0); Platelet Count 324 10^3/uL (130-400); Red Blood Cell Count 5.67 10^6/uL (4.70-6.10); Red Cell Dist. Width 12.4 % (11.5-14.5); White Blood Cell Count 23.6 10^3/uL (4.8-10.8)
[2024-09-27 21:30] LABS: % Basophils 0.2 % (0-2); % Immature Granulocytes 0.6 % (0-0.5); % Lymphocytes 5.2 % (20.5-51.1); % Monocytes 7.6 % (1.7-9.3); % Neutrophils 86.4 % (42.2-75.2); ALT (SGPT) 27 U/L (0-50); AST (SGOT) 30 U/L (17-59); Absolute Basophils 0.1 10^3/uL (0-0.2); Absolute Immature Granulocytes 0.2 10^3/uL (0-0.05); Absolute Lymphocytes 1.2 10^3/uL (1.2-3.4); Absolute Monocytes 1.8 10^3/uL (0.1-0.6); Absolute Neutrophils 20.3 10^3/uL (1.4-6.5); Alkaline Phosphatase 93 U/L (38-126); Blood Urea Nitrogen 25 mg/dl (9-20); Carbon Dioxide 22 mmol/L (22-30); Chloride 94 mmol/L (98-107); Glucose 246 mg/dl (70-99); Lipase 167 U/L (23-300); Nucleated Red Blood Cells % 0 % (-); Potassium 3.8 mmol/L (3.5-5.1); Sodium 135 mmol/L (135-145); Total Bilirubin 0.8 mg/dl (0.2-1.3); Total Protein 7.8 g/dl (6.3-8.2); eGFR > 60.00
[2024-09-27] MEDS: NSS 1000 IV ×2 (21:31)
[2024-09-27] MEDS: ZOFRAN 4 MG IV (21:32)
[2024-09-27 21:37] LABS: B-Hydroxybutyrate 0.34 mmol/L (0.02-0.27)
[2024-09-27] MEDS: CATAPRES 0.1 MG PO (22:18)
[2024-09-27 23:24] LABS: Glucose - Point of Care 221 mg/dl (70-99)
--- NOTE | 2024-09-27 23:46 | EDRN ---
Pt profusely diaphoretic, sbp 60-70's. Dr Serrano to bedside. Urinal emptied for 500ml urine. Pt says he went three times prior to CT and once again after CT.
[2024-09-27] MEDS: NOVOLIN R 8 UNITS IV (23:53)
[2024-09-27] MEDS: FLAGYL 500 MG 100 IV (23:57)
[2024-09-28] VITALS (16 sets, daily range): BP systolic 83–202; BP diastolic 54–122; PULSE 78–119; BMI 23.9; BMI 23.8
[2024-09-28 00:23] LABS: Urine Albumin 2+ (Neg - Trace); Urine Bilirubin Negative (Negative); Urine Character Clear (Clear); Urine Color Yellow; Urine Glucose 1+ (Negative); Urine Ketone Trace (Negative); Urine Leukocyte Negative (Negative); Urine Nitrite Negative (Negative); Urine Occult Blood 1+ (Negative); Urine Urobilinogen Negative (Neg - 1+)
[2024-09-28 01:08] LABS: Glucose - Point of Care 123 mg/dl (70-99)
[2024-09-28] MEDS: LEVAQUIN 100 IV (01:10)
--- NOTE | 2024-09-28 01:13 | EDRN ---
Repeat blood glucose = [address] Harvey at bedside. Dr Harvey informed of bladder scan result.
[2024-09-28 01:21] LABS: Urine Amorphous Seen
--- NOTE | 2024-09-28 01:21 | HPS.HSE ---
Family Physician
-
Family Physician: Adi Cooney
Chief Complaint
-
N/V, Weakness
History of Present Illness
Patient is a 64y M with PMH significant for DM-II and hypertension who presents to ED complaining of intractable N/V and generalized weakness over the past 24 hours. Patient states that he had been feeling fairly well until evening. He
had Thanksgiving dinner at someone else's house and notes that he did not take any insulin as he had none on him. He began to feel nausea shortly after eating and - upon returning home - he had multiple episodes of non-bloody emesis throughout the
evening. Patient states that he did take insulin upon returning home and then as per usual on Monday.
He continued to have N/V x several episodes. He began to develop substernal chest burning / throat burning - which he attributed to the repeated vomiting.
He denies any abdominal pain, fevers / chills, bloody stools, etc. Patient states that he has chronically loose stools - and that this has been reviewed with his PCP and attributed to medications.
He has had multiple previous evaluations for intractable N/V and prior diagnoses of cyclic vomiting, cannabinoid hyperemesis, etc.
He admits to occasional THC use - but states his most recent was about a week ago. He does not drink alcohol.
Medical History
Past Medical History
Past Medical History: Reports Other
Additional Past Medical History:
ASCVD / Peripheral Artery Disease
Hypertension
Diabetes Mellitus, Type II
Diabetic Neuropathy
Past Surgical History: Reports Other
Additional Past Surgical History:
RLE Bypass x 2
LLE Angioplasty
Social History
Tobacco: Other (Former smoker for 40 year. Quit 2 years ago. Currently vaping every day.)
Alcohol: None
Drug: Marijuana (Uses marijiuana occasionally. Last use one week ago. No other drug use.)
Family History
Family History: Not pertinent
Allergies / Home Medications
Allergies reflects when Allergies were last updated in [facility].
Home Medications with original date entered in [facility]
Allergy/Medication List:
Allergies
Allergy/AdvReac Type Severity Reaction Status Date / Time
No Known Allergies Allergy Verified 09/27/24 20:38
Home Medications
clopidogrel 75 mg tablet 75 mg PO HS Blood clot prevention/tx ##0 05/17/21
aspirin 81 mg tablet,delayed release 81 mg PO HS Blood clot prevention/tx 07/13/22
atorvastatin 80 mg tablet 80 mg PO HS High cholesterol 07/13/22
metformin 500 mg tablet 1,000 mg PO BIDWMEAL Diabetes 12/08/23
pantoprazole 40 mg tablet,delayed release (Protonix) 40 mg PO DAILY Gastrointestinal Issue 12/08/23
amlodipine 5 mg tablet 5 mg PO DAILY 30 days #30 tabs 12/12/23
carvedilol 6.25 mg tablet 6.25 mg PO BID 30 days #60 tabs 12/12/23
lisinopril 20 mg tablet 40 mg (2 x 20 mg) PO DAILY 30 days #60 tabs 12/12/23
tamsulosin 0.4 mg capsule 0.4 mg PO HS 30 days #30 caps 12/12/23
insulin aspart U-100 100 unit/mL (3 mL) subcutaneous pen 3 unit SC AC 09/27/24
insulin glargine 100 unit/mL (3 mL) subcutaneous pen (Basaglar KwikPen U-100 Insulin) 12 unit SC HS 09/27/24
Review of Systems
-
History Source: Patient
A 12 point ROS was completed and negative except as noted: Yes
Constitutional: Reports Fatigue; Denies Fever or Chills
EENT: Reports Sore Throat
Respiratory: Denies Cough or Trouble Breathing
Cardiac: Reports Chest Pain; Denies Palpitations
Abdomen/GI: Reports Nausea, Vomiting, Diarrhea and Anorexia; Denies Abdominal Pain, Constipated, Bloody Stools or Black Stools
: Reports Frequency and Difficulty Voiding; Denies Dysuria
Musculoskeletal: Denies Joint Pain or Edema
Neurological: Denies Dizzy or Headache
Psych: Denies Depression or Anxiety
Physical Exam
Vital Signs
Vital Signs
Temp Pulse Resp BP Pulse Ox
99.8 F 71 16 83/62 90
09/28/24 00:18 09/28/24 01:00 09/28/24 01:00 09/28/24 01:00 09/28/24 01:00
Physical Exam
General: Other (64y M in no acute distress. )
HEENT: PERRLA and Other (Dry MM. Neck supple.)
Respiratory: Clear; No Wheezes, Rales or Rhonchi
Cardiac: S1/S2 and Regular Rhythm; No Murmur
GI: Soft, Non Tender, Non Distended and Normal Bowel Sounds
Musculoskeletal: No Clubbing, No Cyanosis and No Edema
Neuro: AO x 3
Laboratory Results
-
09/27/24 21:03
09/27/24 21:03
Laboratory Results
Total Bilirubin 0.8 mg/dl (0.2-1.3) 09/27/24 21:03
AST 30 U/L (17-59) 09/27/24 21:03
ALT 27 U/L (0-50) 09/27/24 21:03
Alkaline Phosphatase 93 U/L (38-126) 09/27/24 21:03
Lipase 167 U/L (23-300) 09/27/24 21:03
Impression/Plan
-
A/P: Patient is a 64y M with PMH significant for DM-II, hypertension and prior issues with intractable emesis who presents to ED c/o intractable N/V x 24 hours.
Intractable N/V
Anion Gap Metabolic Acidosis
- Admit for further evaluation and treatment.
- ? mild / resolving DKA due to Thanksgiving meal with no insulin.
- ? cyclic vomiting exacerbation, Cannabinoid hyperemesis, etc, etc.
- Anion gap on initial labs is 19 with mildly elevated B-OH, trace ketones on UA.
- Check lactic acid level.
- Supportive care with antiemetics, IVFs, etc.
- Follow labs / lytes for improvement.
- Address other associated issues as noted below.
- Encourage cessation of THC altogether.
- Follow for clinical improvement.
GERD
Esophagitis
- Throat / chest burning likely related to recurrent / repeated emesis.
- Increase acid suppression regimen with PPI + H2 blockade.
- GI evaluation for additional recommendations / ? EGD if symptoms worsen or persist.
- Given significant ASCVD history, will rule out possible - if less likely - cardiac origin of his symptoms.
DM-II
- Patient ate large Thanksgiving meal with no insulin coverage on evening.
- Glucose at present is fair and no significant ketonuria or marked elevation in B-OH.
- Will continue usual basal : bolus insulin regimen for now.
- Follow glucose and cover with SSI as needed.
- Update A1C.
- Hold metformin acutely - may be origin of his anion gap acidosis.
ASCVD / PAD
- Patient with significant history of PAD s/p multiple LE surgical procedures.
- No prior cardiac involvement; however, need to rule this out given risk factors and current complaints.
- Check troponin now.
- EKG with non-specific ST-T changes.
- Follow for any new / worsening symptoms.
- Continue usual CV med regimen including DAPT, statin, etc.
Leukocytosis
Possible Diverticulitis
- Elevation in WBC potentially related to GI symptoms, acidosis, etc.
- Patient is afebrile and has no abdominal pain.
- Will continue abx for now - but would have low threshold to discontinue as clinical presentation does not seem c/w acute diverticulitis.
Benign Hypertension
- History of labile hypertension on current multidrug regimen.
- Received dose of clonidine in the ED for BP elevation and had subsequent episode of HYPOtension.
- Hold amlodipine for now.
- Continue carvedilol and lisinopril with holding parameters.
- Adjust regimen as needed for adequate control.
DVT Prophylaxis: Lovenox
Code Status: Full
[2024-09-28 01:22] LABS: Urine Bacteria Few (Negative); Urine White Cell 0-2 /HPF (0-5)
[2024-09-28 01:27] LABS: Lactic Acid 2.4 mmol/L (0.7-2.0)
[2024-09-28 02:01] LABS: Troponin I 0.114 ng/ml
--- NOTE | 2024-09-28 02:06 | EDRN ---
Pt complains of burning in his chest and throat that he had earlier with vomiting. Pt says water seems to trigger the sensation. Pt requesting 'something to coat everything.' TT to house provider with pt request as well as troponin result of 0.114
--- NOTE | 2024-09-28 02:11 | EDRN ---
Dr Harvey informed of pt request for medication, troponin = 0.144 and bp back to being elevated.
--- NOTE | 2024-09-28 02:24 | EDRN ---
Called pharmacy to verify maalox order and it was cancelled by pharmacy. Dr Harvey said there was no reason for it to be cancelled. Called pharmacy and was informed a new order was placed - new order was not placed. Informed pharmacy will look into
it.
[2024-09-28] MEDS: MAALOX 30 ML PO (02:27)
[2024-09-28] MEDS: LR 1000 IV (03:31)
[2024-09-28 07:44] LABS: Glucose - Point of Care 186 mg/dl (70-99)
[2024-09-28] MEDS: COREG 6.25 MG PO ×2 (08:09→20:16)
[2024-09-28] MEDS: ZESTRIL 40 MG PO (08:09)
[2024-09-28] MEDS: PROTONIX 40 MG PO (08:09)
[2024-09-28] MEDS: ZOSYN 50 IV ×2 (08:09→13:28)
[2024-09-28 08:11] LABS: Hematocrit 43.3 % (39.0-52.0); Hemoglobin 15.6 g/dL (13.0-18.0); Mean Corpuscular Volume 85.9 fL (80.0-94.0); Mean Platelet Volume 9.6 fL (7.4-10.4); Platelet Count 239 10^3/uL (130-400); Red Blood Cell Count 5.04 10^6/uL (4.70-6.10); Red Cell Dist. Width 12.4 % (11.5-14.5); White Blood Cell Count 16.6 10^3/uL (4.8-10.8)
[2024-09-28] MEDS: NOVOLOG FLEXPEN-LOW RESISTANCE 1 UNITS SC ×2 (08:15→17:57)
[2024-09-28] MEDS: NOVOLOG FLEXPEN 3 UNITS SC ×3 (08:16→17:57)
[2024-09-28 08:25] LABS: Troponin I 0.069 ng/ml
[2024-09-28 08:44] LABS: Glycohemoglobin (HgbA1c) 6.6 % (4.0-5.6)
[2024-09-28 09:17] LABS: Blood Urea Nitrogen 23 mg/dl (9-20); Calcium 8.8 mg/dl (8.4-10.2); Carbon Dioxide 22 mmol/L (22-30); Chloride 99 mmol/L (98-107); Estimated Creatinine Clearance > 125 ml/min; Glucose 185 mg/dl (70-99); Magnesium 1.6 mg/dl (1.6-2.3); Phosphorus 2.5 mg/dl (2.5-4.5); Sodium 137 mmol/L (135-145); eGFR > 60.00
--- NOTE | 2024-09-28 10:04 | W.PN.HOSP.TC ---
Today's Communication/Plan
-
Advance diet
Continue insulin
Resume antihypertensives
Await CT scan report
Assessment / Plan
Assessment / Plan
Gen-AAOx3, NAD
HEENT-NC, AT, anicteric, clear oral mm
Neck-supple
CV-reg, no M, +S1/S2
Lungs-clear B/L
Abd-soft, NT, ND
Ext-no edema
Musculoskeletal-no cyanosis, clubbing
Skin-warm and dry
Neuro-grossly non-focal
Psych-calm, cooperative
DM2 with DKA -symptoms improving. Etiology of DKA due to noncompliance with insulin administration. Discussed with patient. Anion gap coming down, 16. Tolerating clears, advance to solids for lunch. Home insulin regimen is Basaglar 12 units at
bedtime, aspart 3 units AC, metformin twice daily. Second episode of DKA as per patient.
Abdominal pain and nausea resolved. CT scan done last night, report pending.
GERD/esophagitis -continue famotidine, Protonix.
PAD -on dual antiplatelet therapy.
Essential hypertension -labile readings but for the most part elevated. On amlodipine 5 mg daily, carvedilol 6.25 mg twice daily, lisinopril 40 mg daily at home. Resume home meds.
Full code
Dispo - possible discharge tomorrow if stable.
Anticipated Discharge: Within 24 hours
Subjective/Interval History
-
Date of Service: September 28, 2024
Patient seen and examined. Feeling better overall. No complaints.
Objective Data
-
Labs:
Laboratory Results
09/28/24
07:46
WBC 16.6 H
Hgb 15.6
Hct 43.3
Plt Count 239 D
Sodium 137
Potassium 4.0
Chloride 99
Carbon Dioxide 22
BUN 23 H
Creatinine 0.6 L
Glucose 185 H
Calcium 8.8
Vital Signs:
Vital Signs
Temp Pulse Resp BP Pulse Ox
98.7 F 90 16 175/93 98
09/28/24 07:37 09/28/24 08:15 09/28/24 07:37 09/28/24 08:15 09/28/24 09:56
I&O
09/27/24 09/28/24 09/29/24
06:59 06:59 06:59
Output Total 850 / 850
Balance -850 / -850
Review of Systems
-
History Source: Patient
All other systems: Reviewed and negative
--- NOTE | 2024-09-28 10:53 | CM ---
Reviewed the chart notes and spoke with the patient at the bedside. The patient resides with his spouse in a two story home with a couple of steps to enter. The patient has a rolling walker, wheelchair, and shower chair in the home if needed. The
patient reports no VN or SNF in the past. The patient confirmed [facility] choice [facility]. continues to be available to patient/family and is monitoring medical plan for needs at discharge.
Plan: Discharge to home when medically stable. No anticipated needs identified at this time.
--- NOTE | 2024-09-28 10:55 | CON.GI ---
Addendum entered and electronically signed by Ferdinand Saenz MD 09/28/24 13:56:
I saw and examined the patient.
The RECTIFYING OPERATOR or PA's note was reviewed and I agree with the note.
Comment: 64-year-old male past medical history of diabetes, peripheral artery disease on Plavix, colon polyps presenting with nausea and vomiting after Thanksgiving dinner when he forgot to take his insulin. He has nausea vomiting have now
improved. He states he does have these episodes typically with overeating and forgetting insulin. This could represent cyclic vomiting syndrome versus gastroparesis versus DKA. Incidentally he was found to have diverticulitis on the CT scan. He
has no abdominal pain. I recommend advancing his diet to diabetic, low residue, small frequent meals. No role for antibiotics even if he does have mild diverticulitis. If he tolerates diet, okay for discharge from GI point of view tomorrow. I
have set him up for an appointment with Beronica Talbot our physician bookkeeper assistant on October 31 to set up the colonoscopy which she is overdue for. Additionally if he has diverticulitis, even more pressing reason to do the colonoscopy 6-8 weeks after
acute attack. D/w pt importance of cscope he will make sure she can make Oct 31 appt - I have asked my office to call him next week to confirm. Patient previously known to Dr. Norton.
D/w hospitalist Dr. Arias.
Original Note:
Consultation
-
Date/Time Consultation Requested: 09/28/24 0243
Date/Time Consultation Performed: 09/28/24 1100
Requesting Provider: Dr Harvey
Performing Provider: Dr. Saenz / Beronica Talbot PA-C
Reason for Consultation: nausea, vomiting
Medical History
Chief Complaint / HPI
Chief Complaint: nausea, vomiting
History of Present Illness:
This is a 64 year old male with a past medical history of IDDM, PAD (on Plavix), HTN, GERD and colon polyps previously diagnosed with cyclical vomiting syndrome who presented to the hospital with intractable nausea, vomiting after eating
Thanksgiving dinner. He admits he ate dinner without taking his insulin. GI is asked to consult. He states the nausea/vomiting has now improved, and does feel similar to prior episodes of the cyclical vomiting he has had. Patient currently denies
any abdominal pain, fever or chills. He had no hematemesis or coffee grounds emesis. He does have a history of reflux and takes daily PPI (pantoprazole 40mg). No prior diagnosis of gastroparesis. He does admit to ongoing marijuana use, smokes 1/2 a
joint every other day. Denies other drug use. He recently quit smoking cigarettes, but does vape. No alcohol or NSAID use. Patient had an endoscopy in [address] Norton showing a 4cm hiatal hernia, with biopsies negative for H pylori or Petty's
esophagus. Of note, he is overdue for colonoscopy for surveillance of large, advanced adenomas. He denies a family history of colon cancer, or any other GI malignancies.
Past Medical History
Past Medical History: Other (IDDM, PAD (on Plavix), HTN, GERD and colon polyps; cyclical vomiting syndrome)
Past Surgical History: Other (RLE Bypass x 2, LLE Angioplasty)
Social History
Tobacco: Vaping
Alcohol: None
Drug: Marijuana
Personal:
Living: With Family
Family History
Family History: Other (no family history of any GI malignancy)
Allergies / Home Medications
Allergy/AdvReac Type Severity Reaction Status Date / Time
No Known Allergies Allergy Verified 09/27/24 20:38
�Medication �Instructions �Recorded
clopidogrel 75 mg tablet 75 mg PO HS Blood clot 05/17/21
prevention/tx ##0
aspirin 81 mg tablet,delayed 81 mg PO HS Blood clot 07/13/22
release prevention/tx
atorvastatin 80 mg tablet 80 mg PO HS High cholesterol 07/13/22
metformin 500 mg tablet 1,000 mg PO BIDWMEAL Diabetes 12/08/23
pantoprazole 40 mg tablet,delayed 40 mg PO DAILY Gastrointestinal 12/08/23
release (Protonix) Issue
amlodipine 5 mg tablet 5 mg PO DAILY 30 days #30 tabs 12/12/23
carvedilol 6.25 mg tablet 6.25 mg PO BID 30 days #60 tabs 12/12/23
lisinopril 20 mg tablet 40 mg (2 x 20 mg) PO DAILY 30 days 12/12/23
#60 tabs
tamsulosin 0.4 mg capsule 0.4 mg PO HS 30 days #30 caps 12/12/23
insulin aspart U-100 100 unit/mL 3 unit SC AC Diabetes 09/27/24
(3 mL) subcutaneous pen
insulin glargine 100 unit/mL (3 12 unit SC HS Diabetes 09/27/24
mL) subcutaneous pen (Basaglar
KwikPen U-100 Insulin)
Review of Systems
-
History Source: Patient
All other systems: A 12 pt ROS was Negative except as stated above in HPI
Vital Signs
Temp Pulse Resp BP Pulse Ox
98.7 F 90 16 175/93 98
09/28/24 07:37 09/28/24 08:15 09/28/24 07:37 09/28/24 08:15 09/28/24 09:56
Physical Exam
Exam
General: Well Developed, Well Nourished and No Apparent Distress
Respiratory: Clear
Cardiac: Regular Rhythm
GI: Soft, Non Tender, Non Distended and Normal Bowel Sounds
Skin: Warm and Dry
Neuro: AO x 3
Psych: Calm
Results
WBC 16.6 10^3/uL (4.8-10.8) H 09/28/24 07:46
Hgb 15.6 g/dL (13.0-18.0) 09/28/24 07:46
Hct 43.3 % (39.0-52.0) 09/28/24 07:46
MCV 85.9 fL (80.0-94.0) 09/28/24 07:46
Plt Count 239 10^3/uL (130-400) D 09/28/24 07:46
Absolute Neuts (auto) 20.3 10^3/uL (1.4-6.5) H 09/27/24 21:03
Sodium 137 mmol/L (135-145) 09/28/24 07:46
Potassium 4.0 mmol/L (3.5-5.1) 09/28/24 07:46
Chloride 99 mmol/L (98-107) 09/28/24 07:46
Carbon Dioxide 22 mmol/L (22-30) 09/28/24 07:46
BUN 23 mg/dl (9-20) H 09/28/24 07:46
Creatinine 0.6 mg/dL (0.7-1.3) L 09/28/24 07:46
Calcium 8.8 mg/dl (8.4-10.2) 09/28/24 07:46
Total Bilirubin 0.8 mg/dl (0.2-1.3) 09/27/24 21:03
AST 30 U/L (17-59) 09/27/24 21:03
ALT 27 U/L (0-50) 09/27/24 21:03
Alkaline Phosphatase 93 U/L (38-126) 09/27/24 21:03
Lipase 167 U/L (23-300) 09/27/24 21:03
Diagnostic Image Results:
09/27/24 CT Abdomen/Pelvis: reading pending
Prior GI Procedures:
EGD:
02/2020, Dr. Norton
4cm hiatal hernia, irregular Z line, erythematous mucosa in the gastric antrum.
Biopsies negative for H pylori or Petty's esophagus
Colonoscopy:
06/12/2020, Dr. Coe
Scar in the ascending colon. Biopsied.
- A single (solitary) ulcer in the ascending colon.
Clips (MR conditional) were placed.
Recommendation: - Return patient to [facility] for [facility] care.
- Advance diet as tolerated.
- Repeat colonoscopy in 6 months for surveillance based
on pathology results (negative for dysplasia)
06/02/2020, Dr. Coe
One 35 mm polyp in the ascending colon s/p EMR
- Scar in the ascending colon. Biopsied.
Recommendation: - Discharge patient to home (with escort).
- Advance diet as tolerated.
- Await pathology results.
- Repeat colonoscopy in 6 months to review the
polypectomy site.
03/2022, Dr. Coe
One 25 mm G-LST in the ascending colon, s/p EMR. Post
procedural bleeding treated with epinepherine and 5
hemostatic clips
Recommendation: - Discharge patient to home (with escort).
- Advance diet as tolerated.
- Await pathology results.
- Repeat colonoscopy in 3 months for retreatment to
remove the second large polyp.
02/2020, Dr. Norton
The examined portion of the ileum was normal.
- Non-bleeding internal hemorrhoids.
- Diverticulosis of the sigmoid and descending colon.
- One 25 mm polyp in the proximal ascending colon.
Biopsied. Polypectomy deferred.
- One 7 mm polyp in the distal ascending colon, removed
with a hot snare. Resected and retrieved. Injected.
Clips (MR conditional) were placed.
- One 45 mm polyp in the distal ascending colon.
Biopsied. Polypectomy deferred.
- Tattoo seen in transverse colon.
Pathology: sessile serrated adenomas and tubular adenoma
Assessment / Plan
-
64 year old male with a past medical history of IDDM, PAD (on Plavix), HTN, GERD and colon polyps previously diagnosed with cyclical vomiting syndrome who presented to the hospital with intractable nausea, vomiting after eating Thanksgiving dinner,
which feels similar to his prior episodes of cyclical vomiting.
IMPRESSION / PLAN:
Nausea/Vomiting, suspect secondary to cyclical vomiting syndrome (cannabis hyperemesis) vs gastroparesis
- currently improved
- tolerating clears, OK to advance diet
- consider gastric emptying scan to rule out/confirm gastroparesis (can be done outpatient)
- discussed cyclical vomiting syndrome and its association with use of cannabis -- advised patient to stop using marijuana
- continue PPI, with addition of famotidine PRN
Colon polyps (advanced SSA/TA)
- overdue for surveillance; reminded patient of the importance of regular surveillance colonoscopies (outpatient)
Other medical issues managed as per primary medical team.
-
-
Thank you for consultation and allowing me to participate in the patient's care. Please call the senior fire protection engineer GI physician during the after hours with any questions or concerns.
[2024-09-28] MEDS: LR IV (11:46)
[2024-09-28 12:59] LABS: Glucose - Point of Care 208 mg/dl (70-99)
[2024-09-28] MEDS: NOVOLIN N vial 0.06 UNITS SC (13:28)
[2024-09-28] MEDS: NOVOLOG FLEXPEN-LOW RESISTANCE 2 UNITS SC (13:29)
[2024-09-28 14:12] LABS: Troponin I 0.049 ng/ml
[2024-09-28 17:48] LABS: Glucose - Point of Care 159 mg/dl (70-99)
[2024-09-28] MEDS: NORVASC 5 MG PO (18:41)
--- NOTE | 2024-09-28 18:42 | PTCARENOTE ---
pt hypertensive with a 177/104 BP. MD made aware. amplodipine NOW order placed. pt took with water. pt running high throughout shift. MD aware.
[2024-09-28 21:06] LABS: Glucose - Point of Care 160 mg/dl (70-99)
[2024-09-28] MEDS: FLOMAX 0.4 MG PO (21:24)
[2024-09-28] MEDS: LIPITOR 80 MG PO (21:24)
[2024-09-28] MEDS: LANTUS 0.12 UNITS SC (21:24)
[2024-09-28] MEDS: ASPIR LOW (ENTERIC COATED) 81 MG PO (21:24)
[2024-09-28] MEDS: PEPCID 40 MG PO (21:24)
[2024-09-28] MEDS: MELATONIN 5 MG PO (21:24)
[2024-09-28] MEDS: PLAVIX 75 MG PO (21:24)
[2024-09-29 01:39] VITALS: BP 172/103
[2024-09-29] MEDS: NICODERM TRANSDERMAL 14 MG TRANSDERM (02:03)
[2024-09-29] MEDS: ATIVAN 0.5 MG PO (02:03)
[2024-09-29 02:39] VITALS: BP 172/103
[2024-09-29 03:15] VITALS: BP 172/103
[2024-09-29 04:00] VITALS: BP 148/96
[2024-09-29 06:00] VITALS: BMI 23.5
[2024-09-29 06:55] LABS: % Basophils 0.2 % (0-2); % Eosinophils 0.1 % (0-6); % Immature Granulocytes 0.5 % (0-0.5); % Monocytes 10.2 % (1.7-9.3); Absolute Immature Granulocytes 0.1 10^3/uL (0-0.05); Absolute Lymphocytes 1.8 10^3/uL (1.2-3.4); Absolute Monocytes 1.7 10^3/uL (0.1-0.6); Absolute Neutrophils 12.8 10^3/uL (1.4-6.5); Hematocrit 47.8 % (39.0-52.0); Hemoglobin 16.1 g/dL (13.0-18.0); Mean Corp Hgb Conc. 33.7 g/dL (33.0-37.0); Mean Corpuscular Hgb 29.7 pg (27.0-31.0); Mean Platelet Volume 11.1 fL (7.4-10.4); Nucleated Red Blood Cells % 0 % (-); Platelet Count 226 10^3/uL (130-400); Red Blood Cell Count 5.43 10^6/uL (4.70-6.10); Red Cell Dist. Width 12.1 % (11.5-14.5); White Blood Cell Count 16.4 10^3/uL (4.8-10.8)
[2024-09-29 07:08] LABS: Blood Urea Nitrogen 21 mg/dl (9-20); Calcium 9.1 mg/dl (8.4-10.2); Carbon Dioxide 28 mmol/L (22-30); Chloride 94 mmol/L (98-107); Estimated Creatinine Clearance > 125 ml/min; Glucose 152 mg/dl (70-99); Sodium 134 mmol/L (135-145); eGFR > 60.00
[2024-09-29 07:30] VITALS: BP 181/106
[2024-09-29 07:57] LABS: Glucose - Point of Care 155 mg/dl (70-99)
[2024-09-29] MEDS: NORVASC 5 MG PO ×2 (08:29→10:56)
[2024-09-29] MEDS: PROTONIX 40 MG PO (08:29)
[2024-09-29] MEDS: COREG 6.25 MG PO (08:29)
[2024-09-29] MEDS: NOVOLOG FLEXPEN 3 UNITS SC (08:29)
[2024-09-29] MEDS: ZESTRIL 40 MG PO (08:29)
[2024-09-29] MEDS: NOVOLOG FLEXPEN-LOW RESISTANCE 1 UNITS SC (08:30)
--- NOTE | 2024-09-29 10:20 | W.PN.HOSP.TC ---
Addendum entered and electronically signed by Horacio Arias DO 09/29/24 12:33:
Troponin elevation due to acute nonischemic myocardial injury, possibly due to DKA.
Original Note:
Today's Communication/Plan
-
Discharge
Assessment / Plan
Assessment / Plan
Gen-AAOx3, NAD
HEENT-NC, AT, anicteric, clear oral mm
Neck-supple
CV-reg, no M, +S1/S2
Lungs-clear B/L
Abd-soft, NT, ND
Ext-no edema
Musculoskeletal-no cyanosis, clubbing
Skin-warm and dry
Neuro-grossly non-focal
Psych-calm, cooperative
DM2 with DKA -symptoms improving. Etiology of DKA due to noncompliance with insulin administration. He also ran out of his [employer] supplies and did not bother refilling. Discussed with patient. Anion gap now normal. Tolerating solid food. Home
insulin regimen is Basaglar 12 units at bedtime, aspart 3 units AC, metformin twice daily. Second episode of DKA as per patient.
Abdominal pain and nausea resolved. CT scan report noted but clinically doubt diverticulitis. Discussed with GI. He has no abdominal pain. Antibiotics discontinued.
Leukocytosis noted but afebrile and nontoxic in appearance.
GERD/esophagitis -continue famotidine, Protonix.
PAD -on dual antiplatelet therapy.
Essential hypertension -labile readings but for the most part elevated. On amlodipine 5 mg daily, carvedilol 6.25 mg twice daily, lisinopril 40 mg daily at home. Blood pressure still elevated, increase amlodipine to 10 mg daily, start checking
blood pressures at home and follow-up closely with PCP this week. Discussed with patient.
Full code
Dispo -stable for discharge today. Outpatient follow-up.
32-minute spent in discharge process.
Anticipated Discharge: Today
Subjective/Interval History
-
Date of Service: September 29, 2024
Patient seen and examined. Feeling better. Tolerating diet.
Objective Data
-
Labs:
Laboratory Results
09/29/24
04:22
WBC 16.4 H
Hgb 16.1
Hct 47.8
Plt Count 226
Sodium 134 L
Potassium 4.0
Chloride 94 L
Carbon Dioxide 28
BUN 21 H
Creatinine 0.6 L
Glucose 152 H
Calcium 9.1
Vital Signs:
Vital Signs
Temp Pulse Resp BP Pulse Ox
97.4 F 100 18 181/106 97
09/29/24 07:30 09/29/24 07:30 09/29/24 07:30 09/29/24 07:30 09/29/24 07:30
I&O
09/28/24 09/29/24 09/30/24
06:59 06:59 06:59
Intake Total 1855 / 1855
Output Total 850 / 850 350 / 350
Balance -850 / -850 1505 / 1505
Review of Systems
-
History Source: Patient
All other systems: Reviewed and negative
--- NOTE | 2024-09-29 10:28 | W.DS.TRANS ---
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
-
Discharge Instructions:
Discharge Diagnosis/Procedures Diabetic ketoacidosis, uncontrolled hypertension
Diet Diabetic, Carb Controlled
Activity As tolerated
Driving Restrictions As prior to admission
Bathing Restrictions None
Instructions:
Stand-Alone Forms:
Changes to Home Medications: Yes
Discharge Medications:
DC Medications w/original date entered in [email or web address]
clopidogrel 75 mg tablet 75 mg PO HS Blood clot prevention/tx ##0 05/17/21
aspirin 81 mg tablet,delayed release 81 mg PO HS Blood clot prevention/tx 07/13/22
atorvastatin 80 mg tablet 80 mg PO HS High cholesterol 07/13/22
metformin 500 mg tablet 1,000 mg PO BIDWMEAL Diabetes 12/08/23
carvedilol 6.25 mg tablet 6.25 mg PO BID 30 days #60 tabs 12/12/23
lisinopril 20 mg tablet 40 mg (2 x 20 mg) PO DAILY 30 days #60 tabs 12/12/23
tamsulosin 0.4 mg capsule 0.4 mg PO HS 30 days #30 caps 12/12/23
insulin aspart U-100 100 unit/mL (3 mL) subcutaneous pen 3 unit SC AC Diabetes 09/27/24
insulin glargine 100 unit/mL (3 mL) subcutaneous pen (Basaglar KwikPen U-100 Insulin) 12 unit SC HS Diabetes 09/27/24
amlodipine 10 mg tablet 10 mg PO DAILY #30 tabs 09/29/24
famotidine 40 mg tablet 40 mg PO HS #30 tabs 09/29/24
pantoprazole 40 mg tablet,delayed release (Protonix) 40 mg PO DAILY Gastrointestinal Issue #30 tabs 09/29/24
Home Medication Changes
Amlodipine dose increased to 10 mg daily.
Pending Results: No
[2024-09-29 10:45] VITALS: BP 164/98
--- NOTE | 2024-09-29 10:54 | W.PN.GI.CBS2 ---
Today's Communication / Plan
-
discharge planning, gi signing off
Assessment / Plan
-
64-year-old male past medical history of diabetes, peripheral artery disease on Plavix, colon polyps presenting with nausea and vomiting after Thanksgiving dinner when he forgot to take his insulin. He has nausea vomiting have now improved. He
states he does have these episodes typically with overeating and forgetting insulin. This could represent cyclic vomiting syndrome versus gastroparesis versus DKA. Incidentally he was found to have diverticulitis on the CT scan. He has no
abdominal pain. I recommend advancing his diet to diabetic, low residue, small frequent meals. No role for antibiotics even if he does have mild diverticulitis. Planning for discharge today, tolerating diet. I have set him up for an appointment
with Beronica Talbot our physician retail loan originator assistant on October 31 at 11:30 am to set up the colonoscopy which she is overdue for. Additionally if he has diverticulitis, even more pressing reason to do the colonoscopy 6-8 weeks after acute attack. D/w pt
importance of cscope he will make sure she can make Alfonso 2 appt - I have asked my office to call him next week to confirm. Patient previously known to Dr. Norton.
D/w hospitalist Dr. Arias.
GI will sign off pls call with ?s.
Subjective
Subjective
Date of Service: September 29, 2024
no pain/n/v
feels well
Objective
Data Reviewed
Laboratory Data:
Laboratory Results
09/29/24 04:22
09/29/24 04:22
Laboratory Results
Phosphorus 2.5 mg/dl (2.5-4.5) 09/28/24 07:46
Magnesium 1.6 mg/dl (1.6-2.3) 09/28/24 07:46
Total Bilirubin 0.8 mg/dl (0.2-1.3) 09/27/24 21:03
AST 30 U/L (17-59) 09/27/24 21:03
ALT 27 U/L (0-50) 09/27/24 21:03
Alkaline Phosphatase 93 U/L (38-126) 09/27/24 21:03
Lipase 167 U/L (23-300) 09/27/24 21:03
Vital Signs and I&O:
Vital Signs
Temp Pulse Resp BP Pulse Ox
97.4 F 100 18 181/106 97
09/29/24 07:30 09/29/24 07:30 09/29/24 07:30 09/29/24 07:30 09/29/24 07:30
I&O
09/28/24 09/29/24 09/30/24
06:59 06:59 06:59
Intake Total 1855 / 1855
Output Total 850 / 850 350 / 350
Balance -850 / -850 1505 / 1505
Physical Exam
Physical Exam
HEENT: Anicteric
Cardiology: Normal Sinus Rhythm
Pulmonary: Clear
GI: Non Distended and Non Tender
[2024-09-29] MEDS: NOVOLOG FLEXPEN SC (12:20)
[2024-09-29] MEDS: NOVOLOG FLEXPEN-LOW RESISTANCE SC (12:20)
== END 2024-09-29 12:04 | disposition home or self-care (01) | DRG 638 ==
LOC: 2 NORTH 01:43
PROVIDERS: Student in an Organized Health Care Education/Training Program; ADMITTING PHYSICIAN Hospitalist; ATTENDING PHYSICIAN Hospitalist; CONSULT PHYSICIAN Internal Medicine Gastroenterology; EMERGENCY PHYSICIAN Emergency Medicine; FAMILY PHYSICIAN Family Medicine
DX: E11.10 Type 2 diabetes mellitus with ketoacidosis without coma (principal); I5A Non-ischemic myocardial injury (non-traumatic); E11.51 Type 2 diabetes mellitus with diabetic peripheral angiopathy without gangrene; K21.00 Gastro-esophageal reflux disease with esophagitis, without bleeding; I10 Essential (primary) hypertension; E78.00 Pure hypercholesterolemia, unspecified; F17.290 Nicotine dependence, other tobacco product, uncomplicated; I25.10 Atherosclerotic heart disease of native coronary artery without angina pectoris; E11.40 Type 2 diabetes mellitus with diabetic neuropathy, unspecified; Z79.4 Long term (current) use of insulin; Z79.84 Long term (current) use of oral hypoglycemic drugs; N40.0 Benign prostatic hyperplasia without lower urinary tract symptoms; D64.9 Anemia, unspecified; Z86.0100 Personal history of colon polyps, unspecified; Z87.19 Personal history of other diseases of the digestive system; Z91.199 Patient's noncompliance with other medical treatment and regimen due to unspecified reason
CPT/HCPCS: 51798; 74177; 80048; 80053; 81003; 81015; 82010; 82962; 83036; 83605; 83690; 83735; 84100; 84484; 85025; 85027; 93005; 96361; 96365; 96367; 96375; 99285; 99406; Q9967

== ENCOUNTER 2024-11-26 06:12 | Day surgery (SDC) | payer BC, SELFPAY ==
[2024-11-26 09:08] LABS: Glucose - Point of Care 116 mg/dl (70-99)
== END 2024-11-26 10:34 | disposition home or self-care (01) ==
LOC: GI 06:12
PROVIDERS: ATTENDING PHYSICIAN Internal Medicine Gastroenterology; FAMILY PHYSICIAN Family Medicine
DX: K57.30 Diverticulosis of large intestine without perforation or abscess without bleeding (principal); K64.8 Other hemorrhoids; Q43.8 Other specified congenital malformations of intestine; R19.7 Diarrhea, unspecified; R19.4 Change in bowel habit
CPT/HCPCS: 45380; 88305; 80053; 82962; 83690; 85025; 93005

== ENCOUNTER 2024-11-26 15:11 | Emergency (ER) | payer BC, SELFPAY ==
--- NOTE | 2024-11-26 15:17 | ED.GENMED ---
ED Provider Triage
<Ade Hearn SOFTWARE REVERSE ENGINEER - Last Filed: 11/26/24 15:22>
-
Patient seen by provider in Triage?: Seen in Triage
Attestation: A medical screening examination has been initiated by a qualified medical provider. Based on the assessment performed at this time, it has been determined that an emergent medical condition may exist and the patient has been informed
that further medical evaluation and possible additional diagnostic testing may be needed.
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 Wan, went home, started vomiting has called chills,
cold sweats, vomiting bile, feels weak. Denies any abdominal pain, denies pain 'anywhere.' Denies chest pain or trouble breathing.
GENERAL: Alert , in no apparent distress
EYE: No visual abnormalities.
NECK: Trachea midline
ENT: No visible abnormalities.
LUNGS: No acute respiratory distress
NEUROLOGICAL: Alert and oriented
SKIN: Skin intact. No visible changes.
MUSCULOSKELETAL: Moving extremities normally
PSYCH: Normal and appropriate interaction.
This is a medical evaluation conducted in person to initiate diagnostic evaluation and provide initial therapeutics. Please see further documentation by the treating clinician.
History of Present Illness
<Ade Hearn SOFTWARE REVERSE ENGINEER - Last Filed: 11/26/24 15:22>
General
Chief Complaint: Post Operative Problem(s)
Time Seen by Provider: 11/26/24 15:17
<June Salgado PA-C - Last Filed: 11/26/24 22:15>
General
Source: patient
Exam Limitations: none
Nursing documentation reviewed up to this point in time: agreed with
History of Present Illness
History of Present Illness:
64 y/o M h/o vasculopath (PAD, stenosis etc), htn, hld, vaping, divertic
had colonoscopy today at 9 am and subsequently got sweats/chills/vomiting when he got to recovery; the said he was wheeled to the car vomiting and they said take him to the ER
he apparently has had 2 other colonoscopies with similar responses;
he also has had multple admissions for abdominal pain and vomiting, occaisonally though tto be related to cyclic vomtiing
pt says he vapes occaxisonally but says it is more frequent
he has not had fever, cp, sob, abdominal pain, abdominla distension
he had some liquid stool iwth a little blood in the toilet while here
he has vomited several times despite zofran odt
he has not had any abdominal pain
Past History
<Ade Hearn, SOFTWARE REVERSE ENGINEER - Last Filed: 11/26/24 15:22>
Past History
ED Past Medical History: HTN, Hypercholesterolemia, IDDM and Other (Peripheral artery disease, Anemia, Pancreatitis)
ED Past Surgical History: Other (Right popliteal stent February 2018)
Social History
Tobacco: Smoker
Alcohol: None
Drug: Marijuana
Personal:
Living: with family
Family History
Family History: Diabetes and Hypertension
Review of Systems
<June Salgado PA-C - Last Filed: 11/26/24 22:15>
Review of Systems
Allergies reviewed?: Yes
All Other Systems: Not applicable
Phy Exam
<June Salgado PA-C - Last Filed: 11/26/24 22:15>
Physical Exam
Physical Exam:
GENERAL: Alert , moaning, rolling around in bed
EYE: pupils equal and reactive
NECK: Supple
ENT: o/p clr, dry mouth,
CARDIAC: Regular rate and rhythm .
LUNGS: Clear breath sounds bilaterally, no acute respiratory distress, no wheezes/rales/rhonchi
ABDOMEN: Soft, without focal tenderness, no r/g, no cvat, normal bowel sounds flat nondistended
NEUROLOGICAL: Alert and oriented, no focal neuro deficits
SKIN: Warm and dry, skin intact.
PSYCH: Normal and appropriate interaction.
Course
<Ade Hearn SOFTWARE REVERSE ENGINEER - Last Filed: 11/26/24 15:22>
Orders/Labs/Results
Orders:
Orders
11/26/24 15:21
Ondansetron Orally Disint [Zofran Odt (Orally Disintegrating)] 4 mg PO NOW STA
11/26/24 15:22
Ondansetron Orally Disint [Zofran Odt (Orally Disintegrating)] 4 mg .ROUTE .STK-MED ONE
11/26/24 15:41
Complete Blood Count/With Diff Urgent
11/26/24 15:42
Comprehensive Metabolic Panel Urgent
Lipase Urgent
Comment: ADD ON
11/26/24 19:01
Add On- LAB Urgent
Tests Added?: lipase
0.9% Sodium Chloride 1000 ml [Nss] 1,000 ml IV BOLUS
Ondansetron Injectable [Zofran] 4 mg IV NOW STA
11/26/24 20:25
Electrocardiogram (*1) Urgent
Reason for Study: QTc Monitoring
EKG- Treatment ONCE
11/26/24 20:40
Diphenhydramine [Benadryl] 25 mg IV NOW STA
Metoclopramide [Reglan] 10 mg IV NOW STA
Abnormal Lab Results
11/26/24 11/26/24 11/26/24
15:41 15:42 18:22
WBC 14.6 H 10^3/uL
(4.8-10.8)
MPV 10.5 H fL
(7.4-10.4)
Abs Immat Gran (auto) 0.1 H 10^3/uL
(0-0.05)
Absolute Neuts (auto) 13.0 H 10^3/uL
(1.4-6.5)
Absolute Lymphs (auto) 1.0 L 10^3/uL
(1.2-3.4)
Neutrophils % 89.1 H %
(42.2-75.2)
Lymphocytes % 6.9 L %
(20.5-51.1)
Carbon Dioxide 18 L mmol/L
(22-30)
Creatinine 0.6 L mg/dL
(0.7-1.3)
Glucose 183 H mg/dl
(70-99)
ALT 53 H U/L
(0-50)
Albumin 5.2 H g/dl
(3.5-5.0)
POC Glucose 173 H mg/dl
(70-99)
11/26/24 15:41
11/26/24 15:42
Vital Signs
Initial and Last Documented VS:
Initial Vital Signs
Temp Pulse Resp BP Pulse Ox
36.8 C 85 17 162/110 97
11/26/24 15:19 11/26/24 15:19 11/26/24 15:19 11/26/24 15:19 11/26/24 15:19
Last Documented Vital Signs
Temp Pulse Resp BP Pulse Ox
36.8 C 93 18 165/84 98
11/26/24 18:20 11/26/24 21:16 11/26/24 21:16 11/26/24 21:16 11/26/24 18:20
Joshualt;Juen Salgado PA-C - Last Filed: 11/26/24 22:15>
Orders/Labs/Results
Orders:
Orders
11/26/24 15:21
Ondansetron Orally Disint [Zofran Odt (Orally Disintegrating)] 4 mg PO NOW STA
11/26/24 15:22
Ondansetron Orally Disint [Zofran Odt (Orally Disintegrating)] 4 mg .ROUTE .STK-MED ONE
11/26/24 15:41
Complete Blood Count/With Diff Urgent
11/26/24 15:42
Comprehensive Metabolic Panel Urgent
Lipase Urgent
Comment: ADD ON
11/26/24 19:01
Add On- LAB Urgent
Tests Added?: lipase
0.9% Sodium Chloride 1000 ml [Nss] 1,000 ml IV BOLUS
Ondansetron Injectable [Zofran] 4 mg IV NOW STA
11/26/24 20:25
Electrocardiogram (*1) Urgent
Reason for Study: QTc Monitoring
EKG- Treatment ONCE
11/26/24 20:40
Diphenhydramine [Benadryl] 25 mg IV NOW STA
Metoclopramide [Reglan] 10 mg IV NOW STA
Abnormal Lab Results
11/26/24 11/26/24 11/26/24
15:41 15:42 18:22
WBC 14.6 H 10^3/uL
(4.8-10.8)
MPV 10.5 H fL
(7.4-10.4)
Abs Immat Gran (auto) 0.1 H 10^3/uL
(0-0.05)
Absolute Neuts (auto) 13.0 H 10^3/uL
(1.4-6.5)
Absolute Lymphs (auto) 1.0 L 10^3/uL
(1.2-3.4)
Neutrophils % 89.1 H %
(42.2-75.2)
Lymphocytes % 6.9 L %
(20.5-51.1)
Carbon Dioxide 18 L mmol/L
(22-30)
Creatinine 0.6 L mg/dL
(0.7-1.3)
Glucose 183 H mg/dl
(70-99)
ALT 53 H U/L
(0-50)
Albumin 5.2 H g/dl
(3.5-5.0)
POC Glucose 173 H mg/dl
(70-99)
11/26/24 15:41
11/26/24 15:42
Vital Signs
Initial and Last Documented VS:
Initial Vital Signs
Temp Pulse Resp BP Pulse Ox
36.8 C 85 17 162/110 97
11/26/24 15:19 11/26/24 15:19 11/26/24 15:19 11/26/24 15:19 11/26/24 15:19
Last Documented Vital Signs
Temp Pulse Resp BP Pulse Ox
36.8 C 93 18 165/84 98
11/26/24 18:20 11/26/24 21:16 11/26/24 21:16 11/26/24 21:16 11/26/24 18:20
<June Salgado PA-C - Last Filed: 11/26/24 22:15>
MDM/Problems Addressed
Differential Diagnosis Includes:
anesthesia side effects, cyclic vomiting, viral syndrome, less likely colon perforeation
MDM/Problems Addressed:
64 y/o M
h/o vaping circulation issues, htn hld
had colonoscopy outpatient today and subsequently got intense nausea and vvomited a fe wtimes, bilious emesis and is very nauseated persistetnly
he has no abdominal pain and no abdominla tenderness on exam
he hasn't had any of his meds becuase of the colnosocopy prep so he is hypertensive
small blood in liquid stool here which is likely from hemorrhoids which were seen on colohnoscopy; i was gianna to visualize report
no fever, abdominal pain, significant bleeding
he seems more dry/naueasted
his wbc 14 with left shift is likely reative
his bicarb is a little low likely from prep and dehydration
iv fluids were givne and zofran but still having nausea and seemed restless
i spoke at length with who edned up saying this is very typical for him; post colnoscpy and at baseline; he often times has sissues with vomiing and abdominal pains, which could be lreated to his vaping
we will try reglan/benadryl
qtc checked
and <450
anticipate discharge
ED Attending Note
<Ade Hearn, SOFTWARE REVERSE ENGINEER - Last Filed: 11/26/24 15:22>
-
Portions of this chart may have been created with voice recognition software.� Occasional wrong word or��sound alike� substitutions may have occurred due to the inherent limitations of voice recognition software.
Discharge Plan
Departure
Patient Disposition: Home (Routine Discharge)
Date of Disposition: 11/26/24
Time of Disposition: 22:12
Patient with high blood pressure during this ER visit?: No
Discharge Problem:
Vomiting
Instructions: Nausea and vomiting in adults - ED discharge instructions
Prescriptions:
New
ondansetron 4 mg tablet,disintegrating
4 mg PO Q8H PRN (Reason: nausea and vomiting) 2 Days Qty: 5 0RF
No Action
clopidogrel 75 MG tablet
75 mg PO HS Qty: 0 0RF
atorvastatin 80 MG tablet
80 mg PO HS
aspirin 81 MG tablet,delayed release (DR/EC)
81 mg PO HS
metformin 500 mg Tablet
1,000 mg PO BIDWMEAL
carvedilol 6.25 mg Tablet
6.25 mg PO BID 30 Days Qty: 60 0RF
lisinopril 20 mg Tablet
40 mg PO DAILY 30 Days Qty: 60 0RF
tamsulosin 0.4 mg Capsule
0.4 mg PO HS 30 Days Qty: 30 0RF
insulin aspart U-100 100 unit/mL (3 mL) insulin pen
3 unit SC AC
insulin glargine [Basaglar KwikPen U-100 Insulin] 100 unit/mL (3 mL) insulin pen
12 unit SC HS
famotidine 40 mg Tablet
40 mg PO HS Qty: 30 0RF
amlodipine 10 mg Tablet
10 mg PO DAILY Qty: 30 0RF
pantoprazole [Protonix] 40 mg tablet,delayed release (DR/EC)
40 mg PO DAILY Qty: 30 0RF
Referrals:
Adi Cooney DO [Family Provider] -
Activity Restrictions/Additional Instructions:
TAKE ZOFRAN EVERY 8 HOURS NEEDED FOR [place]UES[place]/VOMITING
DRINK FLUIDS/STAY HYDRATED
TAKE YOUR REGULAR MEDICATIONS
RETURN FO RANY CONCERNS
CALL DR. ELI NEEDED
Interventions
Interventions:
*Risk Screen - Suicide Last Done: 11/26/24 15:21
*General Assessment Last Done: 11/26/24 15:21
*Neglect/Abuse Screening Last Done: 11/26/24 15:21
*ED COVID-19 Vaccine History Last Done: 11/26/24 15:21
ED-Skin Assessment Last Done: 11/26/24 18:13
Discharge Date and Time
Print Language: THAI
[2024-11-26 15:19] VITALS: BP 162/110
[2024-11-26] MEDS: ZOFRAN ODT (ORALLY DISINTEGRATING) 4 MG PO (15:23)
[2024-11-26 16:18] VITALS: BP 169/106
[2024-11-26 16:18] LABS: % Basophils 0.4 % (0-2); % Eosinophils 0.3 % (0-6); % Immature Granulocytes 0.5 % (0-0.5); % Lymphocytes 6.9 % (20.5-51.1); % Monocytes 2.8 % (1.7-9.3); % Neutrophils 89.1 % (42.2-75.2); Absolute Basophils 0.1 10^3/uL (0-0.2); Absolute Immature Granulocytes 0.1 10^3/uL (0-0.05); Absolute Monocytes 0.4 10^3/uL (0.1-0.6); Hematocrit 49.7 % (39.0-52.0); Mean Corp Hgb Conc. 34.2 g/dL (33.0-37.0); Mean Corpuscular Hgb 30.2 pg (27.0-31.0); Mean Corpuscular Volume 88.4 fL (80.0-94.0); Mean Platelet Volume 10.5 fL (7.4-10.4); Nucleated Red Blood Cells % 0 % (-); Platelet Count 239 10^3/uL (130-400); Red Blood Cell Count 5.62 10^6/uL (4.70-6.10); White Blood Cell Count 14.6 10^3/uL (4.8-10.8)
[2024-11-26 16:30] LABS: ALT (SGPT) 53 U/L (0-50); AST (SGOT) 37 U/L (17-59); Albumin 5.2 g/dl (3.5-5.0); Alkaline Phosphatase 99 U/L (38-126); Blood Urea Nitrogen 16 mg/dl (9-20); Carbon Dioxide 18 mmol/L (22-30); Chloride 103 mmol/L (98-107); Glucose 183 mg/dl (70-99); Potassium 4.7 mmol/L (3.5-5.1); Sodium 139 mmol/L (135-145); Total Bilirubin 0.8 mg/dl (0.2-1.3); Total Protein 8.1 g/dl (6.3-8.2); eGFR > 60.00
[2024-11-26 18:20] VITALS: BP 150/93
[2024-11-26 18:23] LABS: Glucose - Point of Care 173 mg/dl (70-99)
[2024-11-26] MEDS: ZOFRAN 4 MG IV (19:30)
[2024-11-26] MEDS: NSS 1000 IV (19:30)
[2024-11-26 19:41] LABS: Lipase 65 U/L (23-300)
[2024-11-26] MEDS: BENADRYL 25 MG IV (20:42)
[2024-11-26] MEDS: REGLAN 10 MG IV (20:42)
[2024-11-26 21:16] VITALS: BP 165/84
== END 2024-11-26 22:38 | disposition home or self-care (01) ==
LOC: EMR 15:11
PROVIDERS: Registered Nurse; EMERGENCY PHYSICIAN Emergency Medicine; FAMILY PHYSICIAN Family Medicine
DX: R11.2 Nausea with vomiting, unspecified (principal); K92.1 Melena; I73.9 Peripheral vascular disease, unspecified; I10 Essential (primary) hypertension; E78.00 Pure hypercholesterolemia, unspecified; E11.51 Type 2 diabetes mellitus with diabetic peripheral angiopathy without gangrene; D64.9 Anemia, unspecified; F17.290 Nicotine dependence, other tobacco product, uncomplicated; Z98.890 Other specified postprocedural states; Z79.4 Long term (current) use of insulin; Z79.82 Long term (current) use of aspirin
CPT/HCPCS: 99284; 96374; 96375 ×2; 96361; 80053; 82962; 83690; 85025; 93005

== ENCOUNTER → 2024-12-24 07:33 | Outpatient (REF) | payer BC, SELFPAY | LOC: RAD 07:33 | PROVIDERS: ATTENDING PHYSICIAN Surgery Vascular Surgery | DX: I73.9 Peripheral vascular disease, unspecified (principal) | CPT/HCPCS: 93922; 93925 ==

== ENCOUNTER 2025-07-09 11:28 | Inpatient (IN) | payer BC, SELFPAY ==
[2025-07-07] VITALS (31 sets, daily range): BP systolic 101–240; BP diastolic 60–140; BMI 24.6; BMI 23.4
[2025-07-07 12:14] LABS: Glucose - Point of Care 272 mg/dl (70-99)
[2025-07-07 12:55] LABS: Hematocrit 51.9 % (39.0-52.0); Hemoglobin 17.8 g/dL (13.0-18.0); Mean Corp Hgb Conc. 34.3 g/dL (33.0-37.0); Mean Corpuscular Volume 85.2 fL (80.0-94.0); Nucleated Red Blood Cells % 0 % (-); Platelet Count 229 10^3/uL (130-400); Red Cell Dist. Width 13.4 % (11.5-14.5)
[2025-07-07 13:03] LABS: Urine Character Clear (Clear)
[2025-07-07] MEDS: REGLAN 10 MG IV (13:08)
[2025-07-07] MEDS: TRANDATE 10 MG IV (13:08)
[2025-07-07] MEDS: BENADRYL 25 MG IV (13:09)
[2025-07-07] MEDS: NSS 1000 IV (13:09)
[2025-07-07 13:35] LABS: Blood Urea Nitrogen 19 mg/dl (9-20); Calcium 10.5 mg/dl (8.4-10.2); Carbon Dioxide 23 mmol/L (22-30); Chloride 99 mmol/L (98-107); Estimated Creatinine Clearance 101 ml/min; Glucose 286 mg/dl (70-99); Sodium 137 mmol/L (135-145); eGFR > 60.00
[2025-07-07 13:45] LABS: Troponin I 0.221 ng/ml
[2025-07-07] MEDS: TRANDATE 20 MG IV (14:07)
[2025-07-07 14:24] LABS: ALT (SGPT) 50 U/L (0-50); AST (SGOT) 48 U/L (17-59); Albumin 5.4 g/dl (3.5-5.0); Alkaline Phosphatase 85 U/L (38-126); Blood Urea Nitrogen 18 mg/dl (9-20); Calcium 9.9 mg/dl (8.4-10.2); Carbon Dioxide 25 mmol/L (22-30); Chloride 99 mmol/L (98-107); Estimated Creatinine Clearance 101 ml/min; Glucose 280 mg/dl (70-99); Potassium 4.6 mmol/L (3.5-5.1); Sodium 135 mmol/L (135-145); Total Protein 8.2 g/dl (6.3-8.2); eGFR > 60.00
[2025-07-07 14:55] LABS: Glucose - Point of Care 265 mg/dl (70-99)
--- NOTE | 2025-07-07 14:55 | ED.GENMED ---
History of Present Illness
<MARILU Maldonado - Last Filed: 07/07/25 15:29>
General
Chief Complaint: Blood Pressure Problem
Source: patient
Exam Limitations: none
Time Seen by Provider: 07/07/25 12:44
Nursing documentation reviewed up to this point in time: agreed with
<Andrea Camejo DO - Last Filed: 07/07/25 20:56>
History of Present Illness
History of Present Illness:
Note:
CHIEF COMPLAINT(S)
Nausea and vomiting since midnight.
HISTORY OF PRESENT ILLNESS
The patient is a 65-year-old male with a history of episodic occurrences of nausea and vomiting. He reports that the current episode started at midnight with persistent vomiting throughout the night. The patient mentions experience with similar
episodes in the past, which were previously suspected to be related to cyclical vomiting syndrome, although he is unfamiliar with the term. Compared to prior episodes, the patient notes that this instance is not as severe. Associated symptoms
include feelings of nausea and fatigue. The patient denies current chest pain and shortness of breath, although he does mention experiencing occasional shortness of breath at other times. The patient did not take his morning medications or insulin
today due to his symptoms.
PAST MEDICAL AND SURIGICAL HISTORY
The patient has a history of nausea and vomiting, previously explored as possible cyclical vomiting syndrome.
SOCIAL DETERMINANTS AFFECTING HEALTH
The patient reports vaping regularly and using marijuana in minimal amounts, more than once a week. There is a possibility that his symptoms may be linked to cannabinoid hyperemesis syndrome, although he expresses uncertainty about this condition.
MEDICATIONS
The patient did not take his scheduled morning medications, including insulin, due to nausea and vomiting.
SOCIAL HISTORY
Past history of vaping and minimal marijuana use, more than once weekly.
REVIEW OF SYSTEMS
- Gastrointestinal: Persistent nausea and vomiting since midnight.
- Respiratory: Occasional shortness of breath noted, absent at the moment.
- General: Fatigue and nausea present.
PHYSICAL EXAM
General: Alert, no acute distress.
Skin: Warm, dry.
Head: Normocephalic, atraumatic.
Neck: Supple, trachea midline.
Eyes, Ears, Nose, Mouth, and Throat: Oral mucosa moist.
Cardiovascular: Normal peripheral perfusion, No edema. regular and tacychardic
Respiratory: Respirations are non-labored.
Gastrointestinal : Abdomen nondistended. nontender
Back: Normal range of motion, Normal alignment.
Musculoskeletal: Normal Range of Motion, normal strength.
Neurological: Alert and oriented to person, place, time, and situation, No focal neurological deficit observed.
Psychiatric: Cooperative, appropriate mood & affect.
PLAN
The patient will be administered medications including Reglan (metoclopramide) and possibly an intravenous fluid bolus to settle symptoms. The patient may receive medications to address nausea. The discussion included ensuring the patients legs are
elevated. Further assessment and treatment to determine the source of nausea and vomiting, including assessment for possible cannabinoid hyperemesis syndrome, will be carried out.
DIFFERENTIAL DIAGNOSIS
The Differential Diagnosis includes, in no particular order and is not limited to:
1. Cyclical Vomiting Syndrome
2. Cannabinoid Hyperemesis Syndrome
3. Viral Gastroenteritis
4. Gastroesophageal Reflux Disease (GERD)
5. Peptic Ulcer Disease
6. Medication-induced Nausea
7. Diabetic Gastroparesis
8. Acute Gastritis
9. Anxiety-related Symptoms
10. Myocardial Infarction
11. Hypertensive emergency
EKG
My independent EKG interpretation is:
- Time of EKG: Not specified
- Rhythm: Sinus rhythm
- Heart rate: 103 bpm
- [place]: Normal axis
- Notable intervals: Not specified
- Abnormalities: Signs of left ventricular hypertrophy (LVH), non-specific ST depression in anterolateral and inferior leads
CARE-UPDATE
07/07/25 - 15:46
Patient shows slight improvement, with mild nausea persisting. New information provided by indicates intermittent speech difficulties, raising concern about potential stroke symptoms. Patient continues marijuana use and vaping despite
advisories to cease. remains concerned about these habits affecting health.
Disposition:
SUMMARY OF ENCOUNTER
The 65-year-old male patient presented to the emergency department with uncontrolled hypertension, episodes of vomiting, and hyperglycemia. The patient has a history of several similar episodes. Initial lab findings showed elevated troponin levels,
a white blood cell count of 17,000 indicating leukocytosis (possibly related to vomiting), and a blood glucose level of 280 mg/dL. The BMP was largely normal with no anion gap. The patients urine showed a trace amount of blood and was positive for
marijuana, with a negative alcohol level. An EKG review showed slight improvement from admission. The decision was made to admit the patient for further monitoring and to repeat the troponin test, likely related to secondary effects from
uncontrolled hypertension. The patient did not report chest pain.
DISPOSITION
Admit.
ASSESSMENT
The patient is experiencing recurrent vomiting and elevated troponin levels possibly related to uncontrolled hypertension, along with hyperglycemia. The presence of leukocytosis may be associated with the vomiting episodes.
EMERGENCY TREATMENTS ADMINISTERED
Not explicitly mentioned.
REASSESSMENT
EKG showed slight improvement from admission.
PLAN
The patient will be admitted for close blood pressure monitoring, glucose monitoring, and to trend troponin levels. Further evaluation of vomiting and hypertension control will be carried out.
INDEPENDENT REVIEW OF LABS AND INTERPRETATION OF TESTS
- My independent review of CBC is leukocytosis with a WBC count of 17,000.
- My independent review of BMP shows normal results with no anion gap, except for blood glucose of 280.
- My independent EKG interpretation is slight improvement from the initial presentation.
MEDICATION RECONCILIATION
Not explicitly mentioned.
MEDICAL DECISION MAKING
- Number and Complexity of Problems Addressed: Chronic conditions affecting care include epilepsy and episodes of vomiting. Differential Diagnosis: Cyclical Vomiting Syndrome, Cannabinoid Hyperemesis Syndrome, Viral Gastroenteritis, Gastroesophageal
Reflux Disease (GERD), Peptic Ulcer Disease, Medication-induced Nausea, Diabetic Gastroparesis, Acute Gastritis, Anxiety-related Symptoms, Myocardial Infarction.
- Data:
Category 1: Reviewed troponin levels indicating elevation; reviewed EKG showing slight improvement on repeat EKG.
Category 2: No additional independent historian input recorded.
Category 3: Managed through evaluation of EKG improvement and troponin trends, case discussed with hospitalist.
CRITICAL CARE TIME
Not explicitly mentioned.
DIAGNOSIS
- Uncontrolled Hypertension (I10).
- Recurrent Vomiting (R11.10).
- Hyperglycemia (R73.9).
- Elevated Troponin (R74.8).
1606 patient did have an episode of tachycardia while vomiting that appeared to be sinus. Suspect troponin is secondary to extreme hypertension, vomiting and tachycardia. However will repeat to ensure that this is not more of an NSTEMI. There is
slight improvement on EKG with rate related
Past History
<MARILU Maldonado - Last Filed: 07/07/25 15:29>
Past History
ED Past Medical History: CAD, HTN, Hypercholesterolemia, IDDM and Other (Peripheral artery disease, Anemia, Pancreatitis)
ED Past Surgical History: Other (Right popliteal stent February 2018)
Patient has exhibited threatening behavior?: No
Social History
Tobacco: Smoker
Alcohol: None
Drug: Marijuana
Personal:
Living: with family
Family History
Family History: Diabetes and Hypertension
Review of Systems
<MARILU Maldonado - Last Filed: 07/07/25 15:29>
Review of Systems
Allergies reviewed?: Yes
Phy Exam
<Andrea Camejo DO - Last Filed: 07/07/25 20:56>
Physical Exam
Physical Exam:
.
Course
<MARILU Maldonado - Last Filed: 07/07/25 15:29>
Orders/Labs/Results
Orders:
Orders
07/07/25 12:40
Electrocardiogram (*1) Urgent
Reason for Study: Chest Pain
Cardiac Monitoring- Treatment ONCE
EKG- Treatment ONCE
IV Insert/Care/Rem.- Treatment PRN
07/07/25 12:42
Complete Blood Count/With Diff Urgent
07/07/25 12:51
Urinalysis Reflex To Culture Urgent
Date Specimen was Collected: 07/07/25
Time Specimen was Collected: 12:50
Urine Drug Abuse Screen Urgent
Date Specimen was Collected: 07/07/25
Time Specimen was Collected: 12:50
Urine Microscopic Reflex Cult Urgent
07/07/25 12:56
0.9% Sodium Chloride 1000 ml [Nss] 1,000 ml IV BOLUS
Diphenhydramine [Benadryl] 25 mg IV NOW STA
Metoclopramide [Reglan] 10 mg IV NOW STA
07/07/25 12:57
Add On- LAB Urgent
Tests Added?: alcohol level
Add On- LAB Urgent
Tests Added?: urine drug abuse screen
07/07/25 12:58
CT Head W/o Iv Contrast Urgent
Comment:
Reason For Exam: hypertension, change in MS
Labetalol HCl [Trandate] 10 mg IV NOW STA
07/07/25 13:10
Alcohol Urgent
Basic Metabolic Panel Urgent
Troponin I Urgent
07/07/25 13:52
Comprehensive Metabolic Panel Urgent
07/07/25 13:58
Labetalol HCl [Trandate] 20 mg IV NOW STA
07/07/25 Dinner
2200 calorie (18 carb) Diabetic
At Your Request: Full Participation
07/07/25 15:04
Electrocardiogram (*1) Urgent
Reason for Study: Other
Other Reason for Exam: vomiting
EKG- Treatment ONCE
07/07/25 15:40
Troponin I Urgent
07/07/25 16:27
CR Chest - 2 Views Urgent
Comment:
Reason For Exam: productive cough
07/07/25 16:41
Admit/Transfer Patient As Directed
Co-Sign Provider:
Level of Care: Observation services
Assign to:: Telemetry
Physician / Group: Ismael Elliott
Diagnosis: Elevated troponin, Hypertensive emergency, hyperglycemia, intractable vomit
Reason for Telemetry: Chest Pain syndromes
Date to Stop Telemetry: 07/09/25
Time to Stop Telemetry: 11:00
PRN Pain Medication Management As Directed
May give lesser potent ordered pain med per pt: Yes
preference::
Protocol:: Medication orders for pain may be administered in a
manner that supports deferring to patient preference
when the pt is:
- Requesting an ordered lesser potent pain medication.
Least to most potent pain medications are defined
as: acetaminophen < NSAID < tramadol < opioids
(morphine, oxycodone, hydromorphone).
- Requesting a lesser dose of the same medication IF
ORDERED.
- Requesting a less intrusive route of administration
if both routes are prescribed by the provider (PO <
IV).
07/07/25 16:43
Code Status As Directed
Resuscitation Status: Full Code
07/07/25 19:01
Acetaminophen [Tylenol] 650 mg PO Q4HPRN PRN
Dextrose 50%-Water [Dextrose 50% Syringe] 12.5 grams IV [id number] PRN
Glucagon [GlucaGen] 1 mg IM PRN PRN
Labetalol HCl [Trandate] 10 mg IV Q6HPRN PRN
Metoclopramide [Reglan] 10 mg IV Q6HPRN PRN
07/07/25 19:01
Activity As Directed
Activity Level: Ambulate
Bedside Glucose Monitoring As Directed
Frequency: AC&HS
Additional Instructions:: Change to q6h if pt on TPN, tube feeding or not eating
INT (Intravenous Needle Therapy) As Directed
Comment: maintain peripheral IV access
Intake/ Output As Directed
Frequency: Per unit guidelines
Pneumatic Compression Sleeves As Directed
Type: Knee high
Vital Signs As Directed
Frequency: Per unit guidelines
Weight As Directed
Frequency: Once
Comment: on admission
DX Deep Vein Thrombosis Video Routine
07/07/25 20:00
Carvedilol [Coreg] 6.25 mg PO BID
07/07/25 20:11
Troponin I Q3H
Comment: at admit & Q3H for 3 total including ED draws, obtain ECG with each level
07/07/25 22:00
Aspirin Low Dose EC [Aspir Low (Enteric Coated)] 81 mg PO HS
Atorvastatin [Lipitor] 80 mg PO HS
Clopidogrel Bisulfate [Plavix] 75 mg PO HS
Famotidine [Pepcid] 40 mg PO HSPRN PRN
Tamsulosin [Flomax] 0.4 mg PO HS
insulin glargine [Basaglar KwikPen U-100 Insulin] 12 unit SC HS
07/07/25 22:01
Troponin I Q3H
Comment: at admit & Q3H for 3 total including ED draws, obtain ECG with each level
07/08/25 01:01
Troponin I Q3H
Comment: at admit & Q3H for 3 total including ED draws, obtain ECG with each level
07/08/25 06:00
Basic Metabolic Panel IN AM
Cardiovascular Evaluation IN AM
Complete Blood Count/No Diff IN AM
Glycohemoglobin (HgbA1c) IN AM
07/08/25 07:30
Insulin Aspart Corrective Low [Novolog Flexpen-Low Resistance] See Protocol SC AC
07/08/25 08:00
Lisinopril [Zestril] 40 mg PO DAILY
07/09/25 11:00
DC Protocol for Telemetry ONCE
Abnormal Lab Results
07/07/25 07/07/25 07/07/25
12:08 12:42 12:51
WBC 17.0 H 10^3/uL
(4.8-10.8)
MPV 10.6 H fL
(7.4-10.4)
Abs Immat Gran (auto) 0.1 H 10^3/uL
(0-0.05)
Absolute Neuts (auto) 14.8 H 10^3/uL
(1.4-6.5)
Absolute Lymphs (auto) 0.8 L 10^3/uL
(1.2-3.4)
Absolute Monos (auto) 1.3 H 10^3/uL
(0.1-0.6)
Immature Gran % 0.6 H %
(0-0.5)
Neutrophils % 87.1 H %
(42.2-75.2)
Lymphocytes % 4.5 L %
(20.5-51.1)
Glucose
Calcium
Troponin I
Albumin
Urine Ketones 2+ A
(Negative)
Ur Occult Blood Reflex 3+ A
(Negative)
Urine RBC 11-15 A /HPF
(0-2)
Urine Bacteria (Reflex) Few A
(Negative)
Urine Glucose 3+ A
(Negative)
Urine Albumin (Reflex) 4+ A
(Neg - Trace)
U Marijuana (THC) Screen Positive H
(Negative)
POC Glucose 272 H mg/dl
(70-99)
07/07/25 07/07/25 07/07/25
13:10 13:52 14:53
WBC
MPV
Abs Immat Gran (auto)
Absolute Neuts (auto)
Absolute Lymphs (auto)
Absolute Monos (auto)
Immature Gran %
Neutrophils %
Lymphocytes %
Glucose 286 H mg/dl 280 H mg/dl
(70) (70-99)
Calcium 10.5 H mg/dl
(8.4-10.2)
Troponin I 0.221 H* ng/ml
Albumin 5.4 H g/dl
(3.5-5.0)
Urine Ketones
Ur Occult Blood Reflex
Urine RBC
Urine Bacteria (Reflex)
Urine Glucose
Urine Albumin (Reflex)
U Marijuana (THC) Screen
POC Glucose 265 H mg/dl
()
07/07/25
15:40
WBC
MPV
Abs Immat Gran (auto)
Absolute Neuts (auto)
Absolute Lymphs (auto)
Absolute Monos (auto)
Immature Gran %
Neutrophils %
Lymphocytes %
Glucose
Calcium
Troponin I 0.335 H* D ng/ml
Albumin
Urine Ketones
Ur Occult Blood Reflex
Urine RBC
Urine Bacteria (Reflex)
Urine Glucose
Urine Albumin (Reflex)
U Marijuana (THC) Screen
POC Glucose
07/07/25 12:42
07/07/25 13:52
Vital Signs
Initial and Last Documented VS:
Initial Vital Signs
Temp Pulse Resp BP Pulse Ox
99.0 F 117 18 230/140 98
07/07/25 12:06 07/07/25 12:06 07/07/25 12:06 07/07/25 12:06 07/07/25 12:06
Last Documented Vital Signs
Temp Pulse Resp BP Pulse Ox
99.5 F 95 18 209/121 98
07/07/25 20:15 07/07/25 20:15 07/07/25 20:15 07/07/25 20:15 07/07/25 20:15
<Andrea Camejo, - Last Filed: 07/07/25 20:56>
Orders/Labs/Results
Orders:
Orders
07/07/25 12:40
Electrocardiogram (*1) Urgent
Reason for Study: Chest Pain
Cardiac Monitoring- Treatment ONCE
EKG- Treatment ONCE
IV Insert/Care/Rem.- Treatment PRN
07/07/25 12:42
Complete Blood Count/With Diff Urgent
07/07/25 12:51
Urinalysis Reflex To Culture Urgent
Date Specimen was Collected: 07/07/25
Time Specimen was Collected: 12:50
Urine Drug Abuse Screen Urgent
Date Specimen was Collected: 07/07/25
Time Specimen was Collected: 12:50
Urine Microscopic Reflex Cult Urgent
07/07/25 12:56
0.9% Sodium Chloride 1000 ml [Nss] 1,000 ml IV BOLUS
Diphenhydramine [Benadryl] 25 mg IV NOW STA
Metoclopramide [Reglan] 10 mg IV NOW STA
07/07/25 12:57
Add On- LAB Urgent
Tests Added?: alcohol level
Add On- LAB Urgent
Tests Added?: urine drug abuse screen
07/07/25 12:58
CT Head W/o Iv Contrast Urgent
Comment:
Reason For Exam: hypertension, change in [place]
Labetalol HCl [Trandate] 10 mg IV NOW STA
07/07/25 13:10
Alcohol Urgent
Basic Metabolic Panel Urgent
Troponin I Urgent
07/07/25 13:52
Comprehensive Metabolic Panel Urgent
07/07/25 13:58
Labetalol HCl [Trandate] 20 mg IV NOW STA
07/07/25 Dinner
2200 calorie (18 carb) Diabetic
At Your Request: Full Participation
07/07/25 15:04
Electrocardiogram (*1) Urgent
Reason for Study: Other
Other Reason for Exam: vomiting
EKG- Treatment ONCE
07/07/25 15:40
Troponin I Urgent
07/07/25 16:27
CR Chest - 2 Views Urgent
Comment:
Reason For Exam: productive cough
07/07/25 16:41
Admit/Transfer Patient As Directed
Co-Sign Provider:
Level of Care: Observation services
Assign to:: Telemetry
Physician / Group: Ismael Elliott
Diagnosis: Elevated troponin, Hypertensive emergency, hyperglycemia, intractable vomit
Reason for Telemetry: Chest Pain syndromes
Date to Stop Telemetry: 07/09/25
Time to Stop Telemetry: 11:00
PRN Pain Medication Management As Directed
May give lesser potent ordered pain med per pt: Yes
preference::
Protocol:: Medication orders for pain may be administered in a
manner that supports deferring to patient preference
when the pt is:
- Requesting an ordered lesser potent pain medication.
Least to most potent pain medications are defined
as: acetaminophen < NSAID < tramadol < opioids
(morphine, oxycodone, hydromorphone).
- Requesting a lesser dose of the same medication IF
ORDERED.
- Requesting a less intrusive route of administration
if both routes are prescribed by the provider (PO <
IV).
07/07/25 16:43
Code Status As Directed
Resuscitation Status: Full Code
07/07/25 19:01
Acetaminophen [Tylenol] 650 mg PO Q4HPRN PRN
Dextrose 50%-Water [Dextrose 50% Syringe] 12.5 grams IV [id number] PRN
Glucagon [GlucaGen] 1 mg IM PRN PRN
Labetalol HCl [Trandate] 10 mg IV Q6HPRN PRN
Metoclopramide [Reglan] 10 mg IV Q6HPRN PRN
07/07/25 19:01
Activity As Directed
Activity Level: Ambulate
Bedside Glucose Monitoring As Directed
Frequency: AC&HS
Additional Instructions:: Change to q6h if pt on TPN, tube feeding or not eating
INT (Intravenous Needle Therapy) As Directed
Comment: maintain peripheral IV access
Intake/ Output As Directed
Frequency: Per unit guidelines
Pneumatic Compression Sleeves As Directed
Type: Knee high
Vital Signs As Directed
Frequency: Per unit guidelines
Weight As Directed
Frequency: Once
Comment: on admission
DX Deep Vein Thrombosis Video Routine
07/07/25 20:00
Carvedilol [Coreg] 6.25 mg PO BID
07/07/25 20:11
Troponin I Q3H
Comment: at admit & Q3H for 3 total including ED draws, obtain ECG with each level
07/07/25 22:00
Aspirin Low Dose EC [Aspir Low (Enteric Coated)] 81 mg PO HS
Atorvastatin [Lipitor] 80 mg PO HS
Clopidogrel Bisulfate [Plavix] 75 mg PO HS
Famotidine [Pepcid] 40 mg PO HSPRN PRN
Tamsulosin [Flomax] 0.4 mg PO HS
insulin glargine [Basaglar KwikPen U-100 Insulin] 12 unit SC HS
07/07/25 22:01
Troponin I Q3H
Comment: at admit & Q3H for 3 total including ED draws, obtain ECG with each level
07/08/25 01:01
Troponin I Q3H
Comment: at admit & Q3H for 3 total including ED draws, obtain ECG with each level
07/08/25 06:00
Basic Metabolic Panel IN AM
Cardiovascular Evaluation IN AM
Complete Blood Count/No Diff IN AM
Glycohemoglobin (HgbA1c) IN AM
07/08/25 07:30
Insulin Aspart Corrective Low [Novolog Flexpen-Low Resistance] See Protocol SC AC
07/08/25 08:00
Lisinopril [Zestril] 40 mg PO DAILY
07/09/25 11:00
DC Protocol for Telemetry ONCE
Abnormal Lab Results
07/07/25 07/07/25 07/07/25
12:08 12:42 12:51
WBC 17.0 H 10^3/uL
(4.8-10.8)
MPV 10.6 H fL
(7.4-10.4)
Abs Immat Gran (auto) 0.1 H 10^3/uL
(0-0.05)
Absolute Neuts (auto) 14.8 H 10^3/uL
(1.4-6.5)
Absolute Lymphs (auto) 0.8 L 10^3/uL
(1.2-3.4)
Absolute Monos (auto) 1.3 H 10^3/uL
(0.1-0.6)
Immature Gran % 0.6 H %
(0-0.5)
Neutrophils % 87.1 H %
(42.2-75.2)
Lymphocytes % 4.5 L %
(20.5-51.1)
Glucose
Calcium
Troponin I
Albumin
Urine Ketones 2+ A
(Negative)
Ur Occult Blood Reflex 3+ A
(Negative)
Urine RBC 11-15 A /HPF
(0-2)
Urine Bacteria (Reflex) Few A
(Negative)
Urine Glucose 3+ A
(Negative)
Urine Albumin (Reflex) 4+ A
(Neg - Trace)
U Marijuana (THC) Screen Positive H
(Negative)
POC Glucose 272 H mg/dl
(70-99)
07/07/25 07/07/25 07/07/25
13:10 13:52 14:53
WBC
MPV
Abs Immat Gran (auto)
Absolute Neuts (auto)
Absolute Lymphs (auto)
Absolute Monos (auto)
Immature Gran %
Neutrophils %
Lymphocytes %
Glucose 286 H mg/dl 280 H mg/dl
() ()
Calcium 10.5 H mg/dl
(8.4-10.2)
Troponin I 0.221 H* ng/ml
Albumin 5.4 H g/dl
(3.5-5.0)
Urine Ketones
Ur Occult Blood Reflex
Urine RBC
Urine Bacteria (Reflex)
Urine Glucose
Urine Albumin (Reflex)
U Marijuana (THC) Screen
POC Glucose 265 H mg/dl
(99)
07/07/25
15:40
WBC
MPV
Abs Immat Gran (auto)
Absolute Neuts (auto)
Absolute Lymphs (auto)
Absolute Monos (auto)
Immature Gran %
Neutrophils %
Lymphocytes %
Glucose
Calcium
Troponin I 0.335 H* D ng/ml
Albumin
Urine Ketones
Ur Occult Blood Reflex
Urine RBC
Urine Bacteria (Reflex)
Urine Glucose
Urine Albumin (Reflex)
U Marijuana (THC) Screen
POC Glucose
07/07/25 12:42
07/07/25 13:52
Vital Signs
Initial and Last Documented VS:
Initial Vital Signs
Temp Pulse Resp BP Pulse Ox
99.0 F 117 18 230/140 98
07/07/25 12:06 07/07/25 12:06 07/07/25 12:06 07/07/25 12:06 07/07/25 12:06
Last Documented Vital Signs
Temp Pulse Resp BP Pulse Ox
99.5 F 95 18 209/121 98
07/07/25 20:15 07/07/25 20:15 07/07/25 20:15 07/07/25 20:15 07/07/25 20:15
<MARILU Maldonado - Last Filed: 07/07/25 15:29>
*Pulse Oximetry
SaO2: 95
Oxygen Mode of Delivery: Room air
<Andrea Camejo DO - Last Filed: 07/07/25 20:56>
*Pulse Oximetry
Patient hypoxic: no
*Critical Care Note
Total Time (30-74mins, 75-104mins- exclusive of procedures): 45 minutes
Data Reviewed
Source: patient and spouse
ED Attending Note
<MARILU Maldonado - Last Filed: 07/07/25 15:29>
-
Portions of this chart may have been created with voice recognition software.� Occasional wrong word or��sound alike� substitutions may have occurred due to the inherent limitations of voice recognition software.
Discharge Plan
Departure
Patient Disposition: Admit
Date of Disposition: 07/07/25
Time of Disposition: 15:47
Admit to: Telemetry
Presentation/result/management discussed w/ accepting MD/DO: Hospitalist
Discharge Problem:
Hypertensive emergency, Vomiting, Elevated troponin, Acute hyperglycemia, Cannabinoid hyperemesis syndrome
Interventions
Interventions:
*Risk Screen - Suicide Last Done: 07/07/25 12:06
*General Assessment Last Done: 07/07/25 12:49
*Neglect/Abuse Screening Last Done: 07/07/25 12:06
*ED- Fall Risk Assessment Last Done: 07/07/25 12:49
*ED COVID-19 Vaccine History Last Done: 07/07/25 12:49
*Nursing Disposition Last Done: 07/07/25 19:10
ED- Cardiac Assessment Last Done: 07/07/25 14:18
ED- Neurological Assessment Last Done: 07/07/25 14:18
ED- Pulmonary Assessment Last Done: 07/07/25 14:18
Discharge Date and Time
Discharge Date/Time: 07/07/25 19:10
--- NOTE | 2025-07-07 16:00 | HPS.HSE ---
Addendum entered and electronically signed by Ismael Elliott MD 07/07/25 16:55:
This is an addendum to H&P written by Natali Henson on 07/07/2025. �Patient seen and examined independently with [employer].
65-year-old male past medical history of type 2 diabetes, prior DKA, GERD, PAD, labile hypertension, diabetic neuropathy, presenting with persistent nausea and vomiting. �Patient has had prior episodes of this possibly thought to be secondary to DKA
versus cyclical vomiting. �Patient denies chest pain or shortness of breath. �Patient did not take insulin today.
Patient with altered mental status at home which happens when blood pressure increases.
Uses marijuana twice a week.
Vital signs show blood pressure of 205/89 at peak.
Labs show leukocytosis of 17. �Blood sugar 280. Trop 0.335.
EKG shows normal sinus rhythm, possible left atrial enlargement.
Patient with intractable vomiting secondary to likely cyclical vomiting syndrome similar to prior episodes secondary to marijuana. �Also with type 2 WI from hypertensive urgency/emergency. �IV fluids, Reglan, given. CT head negative. Hold further
fluids.�
PRN IV labetalol given for elevated blood pressure. Trend troponins. No chest pain.�
Hyperglycemia secondary to missed insulin dose. �Check A1c. �Lab work not suggestive of DKA as no acidosis or anion gap.
Check chest x-ray due to cough.
Original Note:
Family Physician
-
Family Physician: Adi Cooney
Chief Complaint
-
intractable vomiting
History of Present Illness
Patient is a 65-year-old male with past medical history significant for ASCVD / peripheral artery disease, hypertension, diabetes mellitus, type II and diabetic neuropathy who presented to [facility] for evaluation of intractable vomiting. Patient
reports that he started vomiting last night around midnight associated with hot and cold feeling. He stated since he started vomiting he has not taken any insulin or PO medications. He reports productive cough for past 3 months, has chronic issues
with diarrhea and chronic urinary frequency and weak stream. Patient denies shortness of breath or chest pain. He denies any recent travel or sick contact. He does note he continues to use marijuana 2x weekly and smokes a non-nicotine vape daily.
Patients at bedside reported that patient had altered mental status at home and that this happens 1-2x a week.
Medical History
Past Medical History
Past Medical History: Reports Other
Additional Past Medical History:
ASCVD / Peripheral Artery Disease
Hypertension
Diabetes Mellitus, Type II
Diabetic Neuropathy
Past Surgical History: Reports Other
Additional Past Surgical History:
RLE Bypass x 2
LLE Angioplasty
Social History
Tobacco: Other (Former smoker for 40 year. Quit 2 years ago. Currently vaping every day with non-nicotine vape. )
Alcohol: None
Drug: Marijuana (Uses marijuana occasionally. Last use one week ago. No other drug use.)
Personal:
Living: With Family
Employment: Retired
Family History
Family History: Other (Father: CAD )
Allergies / Home Medications
Allergies reflects when Allergies were last updated in [employer].
Home Medications with original date entered in [employer]
Allergy/Medication List:
Allergies
Allergy/AdvReac Type Severity Reaction Status Date / Time
No Known Allergies Allergy Verified 07/07/25 12:09
Home Medications
clopidogrel 75 mg tablet 75 mg PO HS Blood clot prevention/tx ##0 05/17/21
aspirin 81 mg tablet,delayed release 81 mg PO HS Blood clot prevention/tx 07/13/22
atorvastatin 80 mg tablet 80 mg PO HS High cholesterol 07/13/22
metformin 500 mg tablet 1,000 mg PO BID@0800,1700 Diabetes 12/08/23
insulin aspart U-100 100 unit/mL (3 mL) subcutaneous pen 4 unit SC AC Diabetes 09/27/24
insulin glargine 100 unit/mL (3 mL) subcutaneous pen (Basaglar KwikPen U-100 Insulin) 12 unit SC HS Diabetes 09/27/24
carvedilol 6.25 mg tablet 6.25 mg PO BID Blood Pressure 07/07/25
famotidine 40 mg tablet 40 mg PO HSPRN PRN acid reflux 07/07/25
lisinopril 40 mg tablet 40 mg PO DAILY Blood Pressure 07/07/25
tamsulosin 0.4 mg capsule 0.4 mg PO HS Urinary Issue 07/07/25
Review of Systems
-
History Source: Patient
Constitutional: Reports Fever (subjective fever) and Chills
EENT: Reports No Symptoms
Respiratory: Reports Cough (productive cough )
Cardiac: Denies Chest Pain, Diaphoresis, Palpitations or Syncope
Abdomen/GI: Reports Nausea, Vomiting and Diarrhea; Denies Abdominal Pain
: Reports No Symptoms
Musculoskeletal: Reports No Symptoms
Skin: Reports No Symptoms
Neurological: Denies Headache, Weakness or Numbness
Endocrine: Reports No Symptoms
Hematologic/Lymphatic: Reports No Symptoms
Psych: Reports No Symptoms
Physical Exam
Vital Signs
Vital Signs
Temp Pulse Resp BP Pulse Ox
99.0 F 64 18 205/89 96
07/07/25 12:06 07/07/25 15:45 07/07/25 15:45 07/07/25 15:45 07/07/25 15:45
Physical Exam
General: Well Developed, Well Nourished and No Apparent Distress
HEENT: NormoCephalic, Moist mucous membranes and Atraumatic
Respiratory: Clear and Non Labored Respirations
Cardiac: S1/S2, Regular Rhythm and Tachycardia; No Murmur, Rub or Gallop
Breast: Deferred by me
GI: Soft, Non Tender, Non Distended and Normal Bowel Sounds; No Organomegaly
Rectal: Deferred by Provider
Genito-urinary: Deferred by me
Musculoskeletal: No Clubbing, No Cyanosis and No Edema
Skin: Warm and IV/Catheter Site; No Rash
Neuro: Awake, AO x 3 and Nonfocal/grossly intact
Hematologic/Lymphatic: No Lymphadenopathy
Psych: Calm and Intact Judgment/Insight
Laboratory Results
-
07/07/25 12:42
07/07/25 13:52
Laboratory Results
Total Bilirubin 1.2 mg/dl (0.2-1.3) 07/07/25 13:52
AST 48 U/L (17-59) 07/07/25 13:52
ALT 50 U/L (0-50) 07/07/25 13:52
Alkaline Phosphatase 85 U/L (38-126) 07/07/25 13:52
Troponin I 0.221 ng/ml H* 07/07/25 13:10
Data Reviewed
-
CT Scan: Report Reviewed by me (Head: 1. No acute intracranial abnormality identified. 2. Moderate chronic paranasal sinusitis)
Medical Tests (Nuc Med, Echo, EKG etc): Report Reviewed by me (EKG: NORMAL SINUS RHYTHM POSSIBLE LEFT ATRIAL ENLARGEMENT)
Lab Data: Labs Reviewed by me (WBC 17.0, Neut 87.1, trop 0.335)
Impression/Plan
-
IMPRESSION/PLAN:
#intractable vomiting 2/2 cyclical vomiting syndrome vs. cannabinoid hyperemesis syndrome vs. gastroenteritis vs. infectious process
WBC 17.0, Neut 87.1, trop 0.335
EKG: NORMAL SINUS RHYTHM
POSSIBLE LEFT ATRIAL ENLARGEMENT
Head CT: 1. No acute intracranial abnormality identified.
2. Moderate chronic paranasal sinusitis
- Admit to telemetry
- PRN antiemetics
- diet as tolerated
#hypertensive emergency
#Hypertension
no medications taken today r/t vomiting
- continue carvedilol and lisinopril
- PRN labetalol
#elevated troponin
trop 0.335
no chest pain
- trend troponin to peak
#ASCVD / Peripheral Artery Disease
- continue aspirin, atorvastatin and clopidogrel
#Diabetes Mellitus, Type II
- AccuCheck AC & HS
- SSI
- hold metformin while acutely ill
- continue insulin glargine
#Diabetic Neuropathy
Code status: full code
DV prophylaxis: SCDs
[2025-07-07 16:20] LABS: Troponin I 0.335 ng/ml
[2025-07-07] MEDS: COREG 6.25 MG PO (19:37)
[2025-07-07 20:45] LABS: Troponin I 0.347 ng/ml
[2025-07-07 21:17] LABS: Glucose - Point of Care 229 mg/dl (70-99)
[2025-07-07] MEDS: FLOMAX 0.4 MG PO (21:17)
[2025-07-07] MEDS: ASPIR LOW (ENTERIC COATED) 81 MG PO (21:17)
[2025-07-07] MEDS: LANTUS 0.12 UNITS SC (21:17)
[2025-07-07] MEDS: LIPITOR 80 MG PO (21:18)
[2025-07-07] MEDS: PLAVIX 75 MG PO (21:18)
[2025-07-07] MEDS: MELATONIN 5 MG PO (22:56)
[2025-07-07 23:24] LABS: Troponin I 0.365 ng/ml
[2025-07-08] VITALS (8 sets, daily range): BP systolic 113–193; BP diastolic 70–119
[2025-07-08] MEDS: PEPCID 40 MG PO (01:33)
[2025-07-08 02:52] LABS: Troponin I 0.299 ng/ml
[2025-07-08 06:41] LABS: Hematocrit 51.7 % (39.0-52.0); Hemoglobin 17.6 g/dL (13.0-18.0); Mean Corp Hgb Conc. 34.0 g/dL (33.0-37.0); Mean Corpuscular Volume 87.0 fL (80.0-94.0); Platelet Count 223 10^3/uL (130-400); Red Cell Dist. Width 13.5 % (11.5-14.5)
[2025-07-08 07:47] LABS: Glucose - Point of Care 217 mg/dl (70-99)
[2025-07-08] MEDS: COREG 6.25 MG PO (08:10)
[2025-07-08] MEDS: ZESTRIL 40 MG PO (08:11)
[2025-07-08 08:22] LABS: Blood Urea Nitrogen 29 mg/dl (9-20); Calcium 9.7 mg/dl (8.4-10.2); Carbon Dioxide 22 mmol/L (22-30); Chloride 100 mmol/L (98-107); Estimated Creatinine Clearance 81 ml/min; Glucose 227 mg/dl (70-99); HDL Cholesterol 49 mg/dl; LDL Cholesterol, Calculated 87 mg/dl; Potassium 4.4 mmol/L (3.5-5.1); Sodium 135 mmol/L (135-145); Very Low Density Lipoprotein 26 mg/dl (0-30); eGFR > 60.00
[2025-07-08] MEDS: NOVOLOG FLEXPEN-LOW RESISTANCE 2 UNITS SC ×2 (09:01→13:21)
[2025-07-08] MEDS: TRANDATE 10 MG IV ×3 (09:42→21:50)
--- NOTE | 2025-07-08 10:01 | PN.DE.MGMTRT ---
Insulin Management
- -
07/08/2025 Diabetes Management Consult
Patient admitted 07/07 with N&V for past 6 hours and BP problem. PMH GERD, PAD, HTN, Diabetes, Diabetic neuropathy, marijuana use 2x/wk. A1C on admission 6.6%, cr 1, eGFR > 60.
Patient is awake and alert, resting in bed, able to discuss diabetes care. States he has had diabetes ~ 6 to 7 [address] Cooney for diabetes care. Has Stephen CGM for glucose monitoring.
Glucose yesterday 229 to 265. Received 12 units lantus @ HS, fasting glucose today 227. Will restart AC novolog 4 units with low corrective and continue lantus 12 units @ hs. Will not restart metformin this AM will start with dinner. Patient
consumed full breakfast. Patient was ordered 2200 calorie diet, reduced to 1800.
Discussed with nurse.
Will follow.
Diabetes History
- -
Type of Diabetes: 2 requiring insulin
Pre-Admission Diabetes Regimen
07/07/25 07/07/25 07/07/25
12:42 13:10 13:52
Creatinine Cancelled 0.8 0.8
07/08/25
05:40
Creatinine 1.0
Insulin Pump Settings
IP Diabetes Regimen
07/07/25 07/07/25 07/07/25
12:08 12:42 13:10
Glucose Cancelled 286 H
POC Glucose 272 H
07/07/25 07/07/25 07/07/25
13:52 14:53 21:16
Glucose 280 H
POC Glucose 265 H 229 H
07/08/25 07/08/25
05:40 07:46
Glucose 227 H
POC Glucose 217 H
Patient Education
[2025-07-08 10:37] LABS: Glycohemoglobin (HgbA1c) 6.8 % (4.0-5.6)
--- NOTE | 2025-07-08 11:42 | W.PN.HOSP.TC ---
Today's Communication/Plan
-
IVF. Increase insulin. Echocardiogram. Monitor blood pressure. CT Abd
Assessment / Plan
Assessment / Plan
Physical exam:
General: Well Developed, Well Nourished and No Apparent Distress
HEENT: Normocephalic, Atraumatic and Moist Mucous Membranes
Respiratory: Clear to Auscultation; Negative Wheezes, Rales or Rhonchi
Cardiac: Regular Rhythm and S1/S2
GI: Soft, mild tender and Nondistended
Musculoskeletal: No Clubbing, No Cyanosis and No Edema
Neuro: Awake, Alert and Oriented, no neuro deficits
Psych: Anxious
A/P:
Persistent nausea and vomiting likely related to cyclical vomiting syndrome:
Obtain CT scan of the abdomen pelvis today
Continue diabetic diet if able to tolerate otherwise downgrade to clear liquid diet
Supportive care
Discussed with patient about the use of marijuana and might be contributing to his symptoms
Hypertensive urgency:
Given extra IV labetalol today
Increase oral carvedilol
Continue lisinopril
Add some Xanax as needed
Obtain echocardiogram
Elevated troponin:
Elevated troponin due to non-ischemic myocardial injury in the setting of hypertensive urgency
Chest pain-free
Cardiac monitoring
Obtain echocardiogram
Diabetes mellitus type 2 with hyperglycemia:
Adjust insulin regimen
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
Monitor blood sugars
Start IV fluid hydration as well
Hemoglobin A1c 6.8
Leukocytosis:
Likely reactive
Afebrile
Appears to be some chronicity to his leukocytosis
Monitor trend
Anxiety:
Benzo as needed
Hyperlipidemia:
Continue home statin
Peripheral vascular disease:
On dual antiplatelet therapy and statin
DVT prophylaxis:
SCDs
CODE STATUS:
Full code
Total time spent on today's encounter was 52 minutes which included time spent in counseling the patient/family regarding diagnosis and treatment plan as listed above, goals of care, and symptom management. Case was discussed with nursing staff,
specialists, and care coordinators/case management. All labs and imaging personally reviewed by me. Remainder the time spent in detailed review of previous records, lab data, imaging, and other medical provider documentation.
Anticipated Discharge: 24 - 48 hours
Subjective/Interval History
-
Date of Service: July 08, 2025
Patient feels better. No vomiting and less nausea. No abdominal pain. No chest pain shortness of breath or headaches.
Objective Data
-
Labs:
Laboratory Results
07/08/25
05:40
WBC 21.9 H
Hgb 17.6
Hct 51.7
Plt Count 223
Sodium 135
Potassium 4.4
Chloride 100
Carbon Dioxide 22
BUN 29 H
Creatinine 1.0
Glucose 227 H
Calcium 9.7
Vital Signs:
Vital Signs
Temp Pulse Resp BP Pulse Ox
99.0 F 66 18 113/70 93
07/08/25 11:00 07/08/25 11:00 07/08/25 11:00 07/08/25 11:00 07/08/25 11:00
I&O
07/07/25 07/08/25 07/09/25
06:59 06:59 06:59
Intake Total 480 / 480
Output Total 100 / 100
Balance 380 / 380
[2025-07-08 12:07] LABS: Glucose - Point of Care 210 mg/dl (70-99)
[2025-07-08] MEDS: 0.45%NACL 1000 IV (12:22)
[2025-07-08] MEDS: REGLAN 10 MG IV (12:25)
[2025-07-08] MEDS: OMNIPAQUE 50 ML PO (13:05)
[2025-07-08] MEDS: XANAX 0.25 MG PO (13:05)
--- NOTE | 2025-07-08 13:47 | PTCARENOTE ---
BP 181/108 HR 120 in am. Morning BP medications administered. BP 190/119 HR 90 when rechecked. PRN lebatolol administered. Prior to leaving for echo, BP 113/70 HR 66. upon returning from testing, BP 175/84 HR 89. Pt complaining of nausea, anxiety,
and general discomfort on return to unit, having episodes of bile emesis. PRN reglan administered and one time order hydralazine IV obtained. Prior to administration BP 125/75 HR 86. made aware and hydralazine order cancelled. Pt stating he feels
much better after antiemetic but still complains of anxiety. PRN zanex administered. CT with contrast ordered. Contrast prep started @1330. POC ongoing.
[2025-07-08 17:06] LABS: Glucose - Point of Care 165 mg/dl (70-99)
[2025-07-08] MEDS: APRESOLINE 10 MG IV (18:28)
--- NOTE | 2025-07-08 20:31 | PTCARENOTE ---
TT house provider due to pt's BP being 191/92 and HR 102. Pt was given hydralazine at 1830 with no changes in BP. Pt ordered labetalol, but not able to give next dose for another 2 hrs. Pt is in for HTN, his BP's are running anywhere from
180's-200's systolically. Asking for a dose of something for BP, no new orders at this time.
[2025-07-08] MEDS: NOVOLOG FLEXPEN-LOW RESISTANCE SC (20:32)
--- NOTE | 2025-07-08 20:41 | PTCARENOTE ---
TT house provider about a cardiology consult. Informed the house provider that cardiology has not been consulted yet, and asked about getting them on board. Answer that was received, 'no, not yet'.
[2025-07-08] MEDS: COREG 12.5 MG PO (21:15)
[2025-07-08 21:25] LABS: Glucose - Point of Care 207 mg/dl (70-99)
[2025-07-08] MEDS: LIPITOR 80 MG PO (21:49)
[2025-07-08] MEDS: LANTUS 0.12 UNITS SC (21:49)
[2025-07-08] MEDS: PLAVIX 75 MG PO (21:49)
[2025-07-08] MEDS: FLOMAX 0.4 MG PO (21:49)
[2025-07-08] MEDS: ASPIR LOW (ENTERIC COATED) 81 MG PO (21:49)
[2025-07-09] VITALS (11 sets, daily range): BP systolic 157–199; BP diastolic 78–110
--- NOTE | 2025-07-09 01:13 | PTCARENOTE ---
Monitoring pt BP every 2 hrs. TT house provider that BP was 185/102 and HR 76. Hydralazine STAT was ordered. See MAR.
--- NOTE | 2025-07-09 01:26 | W.PN.UPDATE ---
Update Note
Progress Note Update
BP 191/89 HR 100, advised RN to give the labetalol and check.
Repeat BP 185/102 HR 76 Will order Hydralazine 10mg IV x1 patient with no new complaints.
BP 163/103 Hr 90's
[2025-07-09] MEDS: 0.45%NACL 1000 IV ×2 (01:37→14:31)
[2025-07-09] MEDS: APRESOLINE 10 MG IV (01:38)
--- NOTE | 2025-07-09 02:56 | PTCARENOTE ---
TT house provider, BP 163/103 and HR 122 an hr after dose of hydralazine was given. Pt was given a dose of Xanax to hopefully calm them and help bring down the HR.
[2025-07-09] MEDS: XANAX 0.25 MG PO (02:58)
[2025-07-09] MEDS: TRANDATE 10 MG IV ×2 (06:09→12:39)
[2025-07-09 06:10] LABS: Hematocrit 46.9 % (39.0-52.0); Hemoglobin 16.7 g/dL (13.0-18.0); Mean Corp Hgb Conc. 35.6 g/dL (33.0-37.0); Mean Corpuscular Volume 85.3 fL (80.0-94.0); Nucleated Red Blood Cells % 0 % (-); Platelet Count 224 10^3/uL (130-400); Red Cell Dist. Width 13.1 % (11.5-14.5)
[2025-07-09 06:33] LABS: Blood Urea Nitrogen 23 mg/dl (9-20); Calcium 9.3 mg/dl (8.4-10.2); Carbon Dioxide 23 mmol/L (22-30); Chloride 98 mmol/L (98-107); Estimated Creatinine Clearance > 125 ml/min; Glucose 197 mg/dl (70-99); Potassium 3.9 mmol/L (3.5-5.1); Sodium 130 mmol/L (135-145); eGFR > 60.00
[2025-07-09 07:44] LABS: Glucose - Point of Care 186 mg/dl (70-99)
[2025-07-09] MEDS: ZESTRIL 40 MG PO (07:46)
[2025-07-09] MEDS: COREG 12.5 MG PO ×2 (07:47→21:17)
--- NOTE | 2025-07-09 07:49 | PN.DE.MGMTRT ---
Insulin Management
- -
07/09/2025 Diabetes Management Follow up
Patient admitted 07/07 with N&V for past 6 hours and BP problem. PMH GERD, PAD, HTN, Diabetes, Diabetic neuropathy, marijuana use 2x/wk.
States he has had diabetes ~ 6 to [address] Cooney for diabetes care. Has Stephen CGM for glucose monitoring.
A1C on admission 6.6%, cr 1, eGFR > 60.
Patient is awake and alert, resting in bed, states he did not sleep well last night, able to briefly discuss diabetes care.
Glucose yesterday 165 to 210. Received 12 units Lantus @ HS, fasting glucose today 197.
Will increase Lantus to 14 units and AC NovoLog to 6 units with low corrective
Will not restart metformin this AM will start tomorrow with breakfast.
Discussed with nurse. Will cont to follow.
Diabetes History
- -
Type of Diabetes: 2 requiring insulin
Pre-Admission Diabetes Regimen
07/08/25 07/09/25
05:40 05:48
Creatinine 1.0 0.5 L
Lab Results
Hemoglobin A1c 6.8 % (4.0-5.6) H 07/08/25 05:40
Insulin Pump Settings
IP Diabetes Regimen
07/08/25 07/08/25 07/08/25
05:40 12:05 17:05
Glucose 227 H
POC Glucose 210 H 165 H
07/08/25 07/09/25 07/09/25
21:24 05:48 07:43
Glucose 197 H
POC Glucose 207 H 186 H
Patient Education
[2025-07-09] MEDS: NOVOLOG FLEXPEN 6 UNITS SC ×2 (09:00→14:26)
[2025-07-09] MEDS: NOVOLOG FLEXPEN-LOW RESISTANCE 1 UNITS SC ×2 (09:01→14:25)
--- NOTE | 2025-07-09 09:04 | W.PN.HOSP.TC ---
Today's Communication/Plan
-
Antihypertensive regimen adjustments. GI and cardiology eval
Assessment / Plan
Assessment / Plan
Physical exam:
General: Acutely ill
HEENT: Normocephalic, Atraumatic and Moist Mucous Membranes
Respiratory: Clear to Auscultation; Negative Wheezes, Rales or Rhonchi
Cardiac: Regular Rhythm and S1/S2
GI: Soft, mild tender and Nondistended
Musculoskeletal: No Clubbing, No Cyanosis and No Edema
Neuro: Awake, Alert and Oriented, no neuro deficits
Psych: Anxious
A/P:
Persistent nausea and vomiting suspected related to cyclical vomiting syndrome:
Obtained CT scan of the abdomen pelvis yesterday and it showed chronic abnormalities similar as before.
Given persistent symptoms will request GI consultation today
It is unclear if he is tolerating diet at the moment since he is having persistent dry heaves so we will need to reevaluate over the next 24 hours
Hypertensive emergency:
Given extra IV labetalol and IV hydralazine and still very hypertensive.
Despite increased doses of antihypertensives oral and IV patient continues to be significantly hypertensive so we will request cardiology consultation and will change to inpatient. Discussed with cardiology in person
Cardiology will check for metanephrines and will adjust medications accordingly.
Hyponatremia:
Will check urine osmolarity, urine sodium, serum osmolarity, TSH, cortisol levels.
Elevated troponin:
Elevated troponin due to non-ischemic myocardial injury in the setting of hypertensive emergency
Chest pain-free
Cardiac monitoring
Reviewed echocardiogram
Diabetes mellitus type 2 with hyperglycemia:
Adjust insulin regimen
Diabetic HOME SUPERVISOR consult
Monitor blood sugars
Stop IV fluid
Hemoglobin A1c 6.8
Leukocytosis:
Likely reactive
Infectious workup unremarkable including blood cultures no growth, UA unremarkable, chest x-ray unremarkable, CT abdomen unremarkable for active bacterial infection, no other focal signs of infection.
Afebrile
Appears to be some chronicity to his leukocytosis
Monitor trend
Anxiety:
Benzo as needed
Hyperlipidemia:
Continue home statin
Peripheral vascular disease:
On dual antiplatelet therapy and statin
DVT prophylaxis:
SCDs
CODE STATUS:
Full code
Total time spent on today's encounter was 55 minutes which included time spent in counseling the patient/family regarding diagnosis and treatment plan as listed above, goals of care, and symptom management. Case was discussed with nursing staff,
specialists, and care coordinators/case management. All labs and imaging personally reviewed by me. Remainder the time spent in detailed review of previous records, lab data, imaging, and other medical provider documentation.
Anticipated Discharge: 24 - 48 hours
Subjective/Interval History
-
Date of Service: July 09, 2025
Blood pressure continues to be significantly elevated. Patient feels anxious. His nausea is on and off so it is his abdominal discomfort. No vomiting. Afebrile
Objective Data
-
Labs:
Laboratory Results
07/09/25
05:48
WBC 19.8 H
Hgb 16.7
Hct 46.9
Plt Count 224
Sodium 130 L
Potassium 3.9
Chloride 98
Carbon Dioxide 23
BUN 23 H
Creatinine 0.5 L
Glucose 197 H
Calcium 9.3
Vital Signs:
Vital Signs
Temp Pulse Resp BP Pulse Ox
97.9 F 87 18 198/110 98
07/09/25 07:00 07/09/25 07:47 07/09/25 07:00 07/09/25 07:47 07/09/25 07:00
I&O
07/08/25 07/09/25 07/10/25
06:59 06:59 06:59
Intake Total 480 / 480 840 / 840
Output Total 100 / 100 1075 / 1075
Balance 380 / 380 -235 / -235
[2025-07-09] MEDS: APRESOLINE 50 MG PO ×3 (09:19→21:16)
--- NOTE | 2025-07-09 09:42 | CM ---
OUT OF SQUENCE NOTE FROM PREVIOUS CM:
07/08/2025 4:30 PM (ET) Alana Verdugo: Reviewed chart and spoke with the patient at the bedside. The patient lives with his spouse in a two story home with 2 steps to enter. The patient has a rolling walker, wheelchair, and shower chair in the home if
needed. The patient reports no VN or SNF in the past. CM will follow to coordinate all identified needs at discharge.
--- NOTE | 2025-07-09 10:48 | CON.CAR ---
Addendum entered and electronically signed by Tamie Powell MD 07/09/25 15:12:
I saw and evaluated the patient, and I provided the substantive portion of the medical decision making.
I reviewed and agree with the note by HILLARY Christensen and it accurately reflects our care.
I personally performed the medical decision making of the this encounter and my assessment and plan is below:
65-year-old gentleman with past medical history of hypertension, insulin-dependent diabetes, hyperlipidemia, PAD and PVCs presented with nausea and vomiting. Throughout this time he has been noted to have markedly elevated high blood pressure and
an abnormal troponin. He denies any chest pain or shortness of breath. He does feel quite 'antsy' and anxious being in the hospital. He states this is how he always feels when he cannot figure out what is going on with himself. He reports at
home he has been taking his medications. He has hydralazine 10 mg for as needed blood pressures of greater than 180 he has not needed this often.
On exam, he appears restless. rrr no m/r/g. Lungs CTA. no le edema.
Reviewed normal test data: On 12/11/2023 there was no renal artery stenosis.
ECG: NSR NSST changes with fusion complex
Assessment;
Hypertensive emergency
Intractable nausea and vomiting
DM2--insulin dependant
Chronic PAD
Anxiety
Plan:
Resume full home medical antihypertensive agents
increase IV labetolol as needed
complete secondary andujar with metanephrine(roberto given anxiety)
check bp in both arms
Original Note:
Consultation
Consultation Request
Date/Time Consultation Requested: 07/09/25 10a
Date/Time Consultation Performed: 07/09/25 10:30a
Requesting Provider: Dr. Brenner
Performing Provider: HILLARY Christensen for Dr. Powell
Reason for Consultation: HTN
Medical History
-
Chief Complaint: nausea/vomiting
History of Present Illness:
Mr. Vilchis is a 65 yo male with HTN, IDDM, HLD, PAD managed by Dr. Calero, and PVCs, who presents to the ER with c/o nausea and vomiting. He is admitted to the hospitalist service and we are consulted for HTN emergency. Abnormal troponin trend
0.221, 0.335, 0.347, 0.365, 0.299 with EKG SR with frequent PVCs, no acute ischemia. He denies missing doses of medications at home, despite vomiting at home. He denies any cardiac symptoms.
Past Medical History
Past Medical History: Other (as above)
Past Surgical History: Other (left femoral thromboendarterectomy 2015, stent right popliteal artery 2017, pop to tib bypass 2019, RLE redo pop to TP artery bypass with left GSV 2021. )
Social History
Tobacco: Former Smoker (quit smoking but does vape daily for 1 year)
Alcohol: None
Personal:
Living: With Family
Family History
Family History: Reviewed & Not Pertinent
Allergies / Home Medications
Allergy/AdvReac Type Severity Reaction Status Date / Time
No Known Allergies Allergy Verified 07/07/25 12:09
�Medication �Instructions �Recorded �Confirmed �Type
clopidogrel 75 mg tablet 75 mg PO HS Blood clot 05/17/21 07/07/25 Rx
prevention/tx ##0
aspirin 81 mg tablet,delayed 81 mg PO HS Blood clot 07/13/22 07/07/25 History
release prevention/tx
atorvastatin 80 mg tablet 80 mg PO HS High cholesterol 07/13/22 07/07/25 History
metformin 500 mg tablet 1,000 mg PO BID@0800,1700 Diabetes 12/08/23 07/07/25 History
insulin aspart U-100 100 unit/mL 4 unit SC AC Diabetes 09/27/24 07/07/25 History
(3 mL) subcutaneous pen
insulin glargine 100 unit/mL (3 12 unit SC HS Diabetes 09/27/24 07/07/25 History
mL) subcutaneous pen (Basaglar
KwikPen U-100 Insulin)
carvedilol 6.25 mg tablet 6.25 mg PO BID Blood Pressure 07/07/25 07/07/25 History
famotidine 40 mg tablet 40 mg PO HSPRN PRN acid reflux 07/07/25 07/07/25 History
lisinopril 40 mg tablet 40 mg PO DAILY Blood Pressure 07/07/25 07/07/25 History
tamsulosin 0.4 mg capsule 0.4 mg PO HS Urinary Issue 07/07/25 07/07/25 History
Review of Systems
-
History Source: Patient
All other systems: Negative unless noted
Physical Exam
Vital Signs
Temp Pulse Resp BP Pulse Ox
97.9 F 96 18 183/101 98
07/09/25 07:00 07/09/25 10:00 07/09/25 07:00 07/09/25 10:00 07/09/25 07:00
Lab Results
07/09/25 05:48
07/09/25 05:48
Troponin I 0.299 ng/ml H* 07/08/25 02:05
Physical Exam
General: Well Developed, Well Nourished and Other (anxious and fidgety during exam)
HEENT: Normocephalic and Moist Mucous Membranes
Respiratory: Clear and Non Labored Respirations
Cardiac: S1/S2 and Regular Rhythm
Breast: Deferred by me
GI: Soft, Non Tender and Normal Bowel Sounds
Rectal: Deferred by Provider
Genito-urinary: Clear Urine
Musculoskeletal: No Clubbing, No Cyanosis and No Edema
Skin: Warm and Dry
Neuro: AO x 3
Hematologic/Lymphatic: No Lymphadenopathy
Psych: Calm
Impression / Plan
-
HTN emergency - elevated BP despite titration of meds.
- denies any symptoms.
- he takes Amlodipine 5mg daily as outpatient, will resume.
- check serum metanephrines.
- increase Labetalol PRN dose.
- check BP in b/l arms given his extensive PAD history.
- already had a renal artery u/s w/o stenosis.
Non-ischemic myocardial injury - acute in the setting of HTN emergency.
- EKG w/o ischemia.
- denies any anginal symptoms.
PAD - stable w/o symptoms.
- followed by Dr. Calero.
- continue ASA and Lipitor.
HLD - stable on Lipitor.
Vomiting - per hospitalist.
- possibly consult GI.
IDDM - per hospitalist and DM PRICING COORDINATOR.
Smoker - quit smoking cigarettes but started vaping 1 year ago.
- vaping cessation reviewed.
Data Reviewed
-
EKG: Tracing Personally Visualized and interpreted (SR with frequent PVCs 91 bpm)
Radiology: Report Reviewed by me (CXR: no acute process)
CT Scan: Report Reviewed by me (abd/pelvis: chronic wall thickening of esophagus c/w chronic inflammation, colonic diverticulosis. )
Medical Tests (Nuc Med, Echo etc): Report Reviewed by me (echo 07/08/25: EF 61%, no RWMA, no valve disease. )
Labs: Labs Reviewed by me
Old Records: Reviewed
[2025-07-09 11:47] LABS: Glucose - Point of Care 151 mg/dl (70-99)
[2025-07-09] MEDS: NORVASC 5 MG PO (14:23)
--- NOTE | 2025-07-09 14:58 | CON.GI ---
Addendum entered and electronically signed by Evan Mac MD 07/09/25 17:12:
I saw and examined the patient.
The SITE PHYSICIAN's note was reviewed and I agree with the note.
-recurrent nausea and vomiting
-CT with circumferential esophageal thickening
-hx cyclical vomiting
-IDDM
-PAD on Plavix
plan
Differential for his current symptoms-gastroparesis versus secondary to marijuana use vs etc. Patient is able to eat sandwich today
Small frequent meals. Low-fat low fiber diet
Good glycemic control
Avoid marijuana
Patient is currently on Plavix. Plavix needs to be held 5 days prior to any endoscopic evaluation. If he symptomatically better and tolerating diet will recommend outpatient endoscopy / GES with Dr. Norton ( last EGD 2019 )
Continue PPI for possible esophagitis
Original Note:
Consultation
-
Date/Time Consultation Requested: 07/09/25829
Date/Time Consultation Performed: 07/09/25- 1499
Requesting Provider: Deep Brenner MD
Performing Provider: HILLARY Miller, Evan Mac MD
Reason for Consultation: nausea/vomiting and abdominal pain
Medical History
Chief Complaint / HPI
Chief Complaint: nausea/vomiting, abdominal pain
History of Present Illness:
This is a 65 year old male with a past medical history of IDDM, PAD (on Plavix), HTN, GERD and colon polyps with prior EMR with Dr. Coe AC 35mm polyp with stable follow up colonoscopies, diverticulitis previously diagnosed with cyclical
vomiting syndrome. In review with patient he has several admission over then years for nausea and vomiting. He admits symptoms started with diagnosis of diabetes about 7 years ago. hbgA1c has been as high as 12 range but recently 6-7 range. He
also admits to vape and occasional Marijuana use.He now presents recurrent episode of vomiting. CT on admission chronic circumferetial thickening distal esophagus similar to prior from chronic inflammation. Also enlarged prostate with bladder
wall thickening with likely chronic outlet obstruction.
In review with patient he admit to onset of mild odynophagia with vomiting episodes, abdominal pain with admission but now improving, chronic loose stool with prior bx neg but had been on chronic metformin. He otherwise denies hematemesis,
dysphagia, wt loss, rectal bleeding or constipation. + family hx father with colon Cancer
Past Medical History
Past Medical History: Arrhythmias (PVC), GERD, HTN, IDDM and Other (IDDM, PAD (on Plavix), and colon polyps; cyclical vomiting syndrome)
Past Surgical History: Other (RLE Bypass x 2, LLE Angioplasty with multiple prior vascular procedures )
Social History
Tobacco: Vaping
Alcohol: None
Drug: Marijuana
Personal:
Living: With Family
Employment: Retired
Family History
Family History: Other (father with colon CA 60's)
Allergies / Home Medications
Allergy/AdvReac Type Severity Reaction Status Date / Time
No Known Allergies Allergy Verified 07/07/25 12:09
�Medication �Instructions �Recorded
clopidogrel 75 mg tablet 75 mg PO HS Blood clot 05/17/21
prevention/tx ##0
aspirin 81 mg tablet,delayed 81 mg PO HS Blood clot 07/13/22
release prevention/tx
atorvastatin 80 mg tablet 80 mg PO HS High cholesterol 07/13/22
metformin 500 mg tablet 1,000 mg PO BID@0800,1700 Diabetes 12/08/23
insulin aspart U-100 100 unit/mL 4 unit SC AC Diabetes 09/27/24
(3 mL) subcutaneous pen
insulin glargine 100 unit/mL (3 12 unit SC HS Diabetes 09/27/24
mL) subcutaneous pen (Basaglar
KwikPen U-100 Insulin)
carvedilol 6.25 mg tablet 6.25 mg PO BID Blood Pressure 07/07/25
famotidine 40 mg tablet 40 mg PO HSPRN PRN acid reflux 07/07/25
lisinopril 40 mg tablet 40 mg PO DAILY Blood Pressure 07/07/25
tamsulosin 0.4 mg capsule 0.4 mg PO HS Urinary Issue 07/07/25
Review of Systems
-
History Source: Patient
EENT: Reports Other (minimal odynophagia with recurrent vomiting )
Respiratory: Reports No Symptoms
Cardiac: Reports No Symptoms
Abdomen/GI: Reports Abdominal Pain (on admission now improving ), Nausea, Vomiting and Diarrhea
: Reports Frequency
Musculoskeletal: Reports No Symptoms
Skin: Reports No Symptoms
Neurological: Reports Weakness
Endocrine: Reports No Symptoms
Hematologic/Lymphatic: Reports No Symptoms
Vital Signs
Temp Pulse Resp BP Pulse Ox
97.9 F 74 18 160/100 97
07/09/25 11:00 07/09/25 14:23 07/09/25 11:00 07/09/25 14:23 07/09/25 11:00
Physical Exam
Exam
General: Well Developed, Well Nourished, No Apparent Distress and Other (slightly anxious but cooperative )
HEENT: Normocephalic and Anicteric
Respiratory: Clear
Cardiac: Regular Rhythm
GI: Soft, Non Tender and Non Distended
Musculoskeletal: No Clubbing and No Cyanosis
Skin: Warm and Dry
Neuro: Awake, Alert and AO x 3
Psych: Calm
Results
WBC 19.8 10^3/uL (4.8-10.8) H 07/09/25 05:48
Hgb 16.7 g/dL (13.0-18.0) 07/09/25 05:48
Hct 46.9 % (39.0-52.0) 07/09/25 05:48
MCV 85.3 fL (80.0-94.0) 07/09/25 05:48
Plt Count 224 10^3/uL (130-400) 07/09/25 05:48
Absolute Neuts (auto) 16.6 10^3/uL (1.4-6.5) H 07/09/25 05:48
Sodium 130 mmol/L (135-145) L 07/09/25 05:48
Potassium 3.9 mmol/L (3.5-5.1) 07/09/25 05:48
Chloride 98 mmol/L (98-107) 07/09/25 05:48
Carbon Dioxide 23 mmol/L (22-30) 07/09/25 05:48
BUN 23 mg/dl (9-20) H 07/09/25 05:48
Creatinine 0.5 mg/dL (0.7-1.3) L 07/09/25 05:48
Calcium 9.3 mg/dl (8.4-10.2) 07/09/25 05:48
Total Bilirubin 1.2 mg/dl (0.2-1.3) 07/07/25 13:52
AST 48 U/L (17-59) 07/07/25 13:52
ALT 50 U/L (0-50) 07/07/25 13:52
Alkaline Phosphatase 85 U/L (38-126) 07/07/25 13:52
Diagnostic Image Results:
07/08/25 CT
There is chronic circumferential wall thickening along the distal esophagus which is overall similar in appearance to prior and may be sequelae of chronic inflammation.
Moderate prostatomegaly with urinary bladder wall thickening and a left-sided urinary bladder diverticulum, likely secondary to chronic outlet obstruction and which are overall similar in appearance to prior.
Colonic diverticulosis
Prior GI Procedures:
EGD: Dae Norton - Normal esophagus.
- Z-line irregular, 40 cm from the incisors. Biopsied.
- 4 cm hiatal hernia.
- Erythematous mucosa in the antrum. Biopsied.
- Normal duodenal bulb, first portion of the duodenum
and second portion of the duodenum. Biopsied.
bx neg metaplasia
Colonoscopy: nuria Norton, 10/2024- - Non-bleeding internal hemorrhoids.
- Diverticulosis in the sigmoid colon, in the
descending colon and in the ascending colon.
- The examination was otherwise normal.
- Tortuous colon.
- A tattoo was seen in the ascending colon. The tattoo
site appeared normal.
- Biopsies were taken with a cold forceps from the
entire colon for evaluation of microscopic colitis.
bx neg
Assessment / Plan
-
This is a 65 year old male with a past medical history of IDDM, PAD (on Plavix), HTN, GERD and colon polyps with prior EMR with Dr. oCe AC 35mm polyp with stable follow up colonoscopies, diverticulitis previously diagnosed with cyclical
vomiting syndrome. In review with patient he has several admission over then years for nausea and vomiting. He admits symptoms started with diagnosis of diabetes about 7 years ago. hbgA1c has been as high as 12 range but recently 6-7 range. He
also admits to vape and occasional Marijuana use.He now presents recurrent episode of vomiting. CT on admission chronic circumferential thickening distal esophagus similar to prior from chronic inflammation. Also enlarged prostate with bladder
wall thickening with likely chronic outlet obstruction. In review with patient he admit to onset of mild odynophagia with vomiting episodes, abdominal pain with admission but now improving, chronic loose stool with prior bx neg but had been on
chronic metformin. He otherwise denies hematemesis, dysphagia, wt loss, rectal bleeding or constipation. + family hx father with colon Cancer.
-recurrent nausea and vomiting
-CT with circumferential esophageal thickening
-hx cyclical vomiting
-IDDM
-PAD on Plavix
-diarrhea
-HTN urgency
-hyponatremia
-leukocytosis
-elevated trop s/p cards eval
other medical problems:
-GERD
-hx colon polyps with prior EMR
-prior diverticulitis
PLAN:
etiology of recurrent nausea and vomiting related to gastroparesis with hx DM, marijuana related to vs other
pt also with persistent esophageal thickening -- may be from vomiting vs other
Pt current ate 1/2 sandwich and feeling better
hx EGD 2024 with neg nice's-- no current dysphagia, wt loss or hematesis
will review with Dr. Mac for EGD to eval for esophageal persistent thickening -- pt is on plavix and ASA so would be limited vs OP follow up
discussed good control of Diabetes -- he is due to see endocrine for new OP consult however hbg A1C is improved to 6-7 range from prior 12
consider formal OP gastric emptying scan off antiemetics and narcotics if symptoms persist
Marijuana/vape abstinence
keep electrolytes corrected
will add PPI daily x 8 weeks with esophageal thickening
NSAID avoidance
pt also with chronic diarrhea possible metformin vs other - to review with endocrine in OP visit prior colon bx neg for microscopic colitis
cont reglan PRN
OP follow up wit Dr. Norton or PONCHO to discuss EGD with persistent esophageal thickening /GE scan/diarrhea (wihich may be driven by metformin) --message sent to office
-
-
Thank you for consultation and allowing me to participate in the patient's care. Please call the electronics technician GI physician during the after hours with any questions or concerns.
[2025-07-09] MEDS: PROTONIX 40 MG PO (16:24)
--- NOTE | 2025-07-09 16:36 | CM ---
Transitioned from OBS to inpatient today. Discharge POC: Anticipate home HH VN vs No needs. Therapy identifies no PT needs.
[2025-07-09 17:36] LABS: Glucose - Point of Care 120 mg/dl (70-99)
[2025-07-09] MEDS: NOVOLOG FLEXPEN-LOW RESISTANCE SC (18:13)
[2025-07-09] MEDS: NOVOLOG FLEXPEN SC ×2 (18:14→19:22)
[2025-07-09 21:07] LABS: Glucose - Point of Care 150 mg/dl (70-99)
[2025-07-09] MEDS: LIPITOR 80 MG PO (21:16)
[2025-07-09] MEDS: PLAVIX 75 MG PO (21:16)
[2025-07-09] MEDS: ASPIR LOW (ENTERIC COATED) 81 MG PO (21:16)
[2025-07-09] MEDS: FLOMAX 0.4 MG PO (21:17)
[2025-07-09] MEDS: LANTUS 0.14 UNITS SC (21:38)
[2025-07-10 03:07] VITALS: BP 190/96
[2025-07-10] MEDS: TRANDATE 20 MG IV ×2 (03:51→13:27)
[2025-07-10 07:25] VITALS: BP 121/84
[2025-07-10 07:40] LABS: Glucose - Point of Care 168 mg/dl (70-99)
--- NOTE | 2025-07-10 07:40 | PN.DE.MGMTRT ---
Insulin Management
- -
07/10/2025 Diabetes Management Follow up
Patient admitted 07/07 with N&V for past 6 hours and BP problem. PMH GERD, PAD, HTN, Diabetes, Diabetic neuropathy, marijuana use 2x/wk. Prior to admission was taking 4 units novolog AC with metformin 1000 BID and lantus 12 units @ HS. A1C on
admission 6.6%, cr 1, eGFR > 60.
States he has had diabetes ~ 6 to 7 years [address] Cooney for diabetes care. Has Stephen CGM for glucose monitoring.
Patient is awake and alert, resting in bed, able to briefly discuss diabetes care.
Glucose yesterday 120 to 186. Received 14 units Lantus @ HS, fasting glucose today 168.
Will continue Lantus 14 units and AC NovoLog to 6 units with low corrective
Metformin restarted this AM 1000 mg BID first dose with breakfast.
Discussed with nurse. Will cont to follow.
Diabetes History
- -
Type of Diabetes: 2 requiring insulin
Pre-Admission Diabetes Regimen
Lab Results
Hemoglobin A1c 6.8 % (4.0-5.6) H 07/08/25 05:40
Insulin Pump Settings
IP Diabetes Regimen
07/09/25 07/09/25 07/09/25
07:43 11:46 17:35
POC Glucose 186 H 151 H 120 H
07/09/25
21:05
POC Glucose 150 H
Patient Education
[2025-07-10] MEDS: ZESTRIL 40 MG PO (08:04)
[2025-07-10] MEDS: COREG 12.5 MG PO (08:07)
[2025-07-10] MEDS: APRESOLINE 50 MG PO ×2 (08:07→17:07)
[2025-07-10] MEDS: GLUCOPHAGE 1000 MG PO ×2 (08:07→17:08)
[2025-07-10] MEDS: NORVASC 5 MG PO (08:09)
[2025-07-10] MEDS: PROTONIX 40 MG PO (08:09)
[2025-07-10] MEDS: NOVOLOG FLEXPEN-LOW RESISTANCE 1 UNITS SC ×2 (08:10→17:10)
[2025-07-10] MEDS: NOVOLOG FLEXPEN 6 UNITS SC ×3 (08:11→17:11)
[2025-07-10 08:27] LABS: Cortisol, Random 24.7 ug/dl
--- NOTE | 2025-07-10 08:47 | W.PN.CD ---
Today's Communication / Plan
-
- Echocardiogram yesterday with LVEF of 61% with no significant valvular disease.
- Blood pressure appears to be controlled this a.m.; continue current doses of lisinopril, carvedilol, hydralazine, and amlodipine; can increase as needed to optimize blood pressure control.
- Cardiology will remain available on an as-needed basis; outpatient follow-up with Cardiology.
Impression / Plan
-
HTN emergency - elevated BP despite titration of meds.
- denies any symptoms.
- already had a renal artery u/s w/o stenosis.
- Echocardiogram yesterday with LVEF of 61% with no significant valvular disease.
- Blood pressure appears to be controlled this a.m.; continue current doses of lisinopril, carvedilol, hydralazine, and amlodipine; can increase as needed to optimize blood pressure control.
Chronic non-ischemic myocardial injury -in the setting of HTN emergency.
- EKG w/o ischemia.
- denies any anginal symptoms.
PAD - stable w/o symptoms.
- followed by Dr. Calero.
- continue medical management with ASA and Lipitor.
HLD - stable on Lipitor.
Vomiting -management per hospitalist.
- Recommendations as per GI.
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
Smoker - quit smoking cigarettes but started vaping 1 year ago.
- vaping cessation strongly recommended.
Physical Exam
Vital Signs/Labs
Vital Signs
Temp Pulse Resp BP Pulse Ox
97.5 F 86 16 121/84 96
07/10/25 07:25 07/10/25 08:09 07/10/25 07:25 07/10/25 08:09 07/10/25 07:25
07/09/25 05:48
07/09/25 05:48
Triglycerides 133 mg/dl (10-149) 07/08/25 05:40
LDL Cholesterol, Calc 87 mg/dl 07/08/25 05:40
VLDL Cholesterol, Calc 26 mg/dl (0-30) 07/08/25 05:40
HDL Cholesterol 49 mg/dl 07/08/25 05:40
LAB Results
07/07/25 07/07/25 07/07/25
12:42 13:10 15:40
Troponin I Cancelled 0.221 H* 0.335 H* D
07/07/25 07/07/25 07/08/25
20:11 22:26 02:05
Troponin I 0.347 H* 0.365 H* 0.299 H*
Physical Exam
Constitutional: No acute distress and Comfortable
EENT: Anicteric
Cardiovascular: Rhythm & rate is regular, Pedal edema is absent, Systolic murmur absent and S1S2 is normal
Respiratory: Respiratory effort normal and Lungs clear to auscul.
GI: Soft
Neuro/Psych: AO x 3
Other: Skin (Warm, dry, intact)
Data Reviewed
-
Date of Service: July 10, 2025
EKG: Tracing Personally Visualized and interpreted (Telemetry: Sinus rhythm, occasional PVCs)
Echo: Report Reviewed by me ( LVEF 61%; no significant valvular disease)
Medical Tests (PFT, Pathology etc): Discussed with Patient
Labs: Labs Reviewed by me
--- NOTE | 2025-07-10 10:21 | W.PN.HOSP.TC ---
Today's Communication/Plan
-
Discharge planning
Assessment / Plan
Assessment / Plan
Physical exam:
General: Well Developed, Well Nourished and No Apparent Distress
HEENT: Normocephalic, Atraumatic and Moist Mucous Membranes
Respiratory: Clear to Auscultation; Negative Wheezes, Rales or Rhonchi
Cardiac: Regular Rhythm and S1/S2
GI: Soft, Nontender and Nondistended
Musculoskeletal: No Clubbing, No Cyanosis and No Edema
Neuro: Awake, Alert and Oriented
Psych: Calm
A/P:
Persistent nausea and vomiting suspected related to cyclical vomiting syndrome:
Appreciate GI consult
Plan for EGD as outpatient
Continue PPI
Add some bowel regimen
Hypertensive emergency:
Improved
Appreciate cardiology consult
Continue current regimen
Hyponatremia:
Appears to have some increased ADH physiology based on workup
Can follow-up as outpatient
Elevated troponin:
Elevated troponin due to non-ischemic myocardial injury in the setting of hypertensive emergency
Chest pain-free
Cardiac monitoring
Reviewed echocardiogram
Diabetes mellitus type 2 with hyperglycemia:
Adjusted insulin regimen
Diabetic CRAB PICKER consult
Hemoglobin A1c 6.8
Leukocytosis:
Likely reactive
Infectious workup unremarkable including blood cultures no growth, UA unremarkable, chest x-ray unremarkable, CT abdomen unremarkable for active bacterial infection, no other focal signs of infection.
Afebrile
Appears to be some chronicity to his leukocytosis
Monitor as outpatient
Anxiety:
Benzo as needed
Hyperlipidemia:
Continue home statin
Peripheral vascular disease:
On dual antiplatelet therapy and statin
DVT prophylaxis:
SCDs
CODE STATUS:
Full code
Anticipated Discharge: Today
Subjective/Interval History
-
Date of Service: July 10, 2025
Patient does not feel any worse than before. He does have poor appetite but otherwise no issues with eating. He has not had a bowel movement. No chest pain or shortness of breath. Afebrile
Objective Data
-
Vital Signs:
Vital Signs
Temp Pulse Resp BP Pulse Ox
97.5 F 86 16 121/84 96
07/10/25 07:25 07/10/25 08:09 07/10/25 07:25 07/10/25 08:09 07/10/25 07:25
I&O
07/09/25 07/10/25 07/11/25
06:59 06:59 06:59
Intake Total 840 / 840
Output Total 1075 / 1075 1000 / 1000
Balance -235 / -235 -1000 / -1000
--- NOTE | 2025-07-10 10:27 | W.DCSUMMARY ---
Discharge Summary
Discharge Data
Date of Admission: 07/09/25
Date of Discharge: 07/10/25
Total time spent discharging patient (in min): 35
-
Pending Results: Yes
Additional Pending Results:
Metanephrines
Hospital Course
Patient is 65 years old male with past medical history of hypertension, diabetes mellitus, GERD, PVD, came into the hospital with abdominal pain nausea and vomiting. He was told that he had some cyclical vomiting and probably exacerbated by
marijuana use and underlying possible diabetic gastroparesis. Patient was treated with conservative measures with IV fluids, antiemetics, PPI. GI consulted. CT scan of abdomen shows chronic inflammation and thickening of the distal esophagus but
no other acute abnormalities. GI recommend outpatient endoscopy. Patient also complicated with hypertensive emergency for which cardiology was consulted. His blood pressure medications were adjusted and he is doing better but will need follow up
as outpatient. He had metanephrines checked but pending due to episodic nature of elevation of BP. Echocardiogram EF of 61%. Patient had persistent leukocytosis but infection workup unremarkable with normal chest x-ray, normal UA, blood cultures
sterile, and afebrile. Patient will be discharged in relatively stable condition today.
Discharge duration: 35 minutes
Discharge Plan
-
Patient Disposition: Home (Routine Discharge)
Discharge Diagnosis/Procedures: Abdominal pain nausea vomiting. Hypertensive emergency. Hyponatremia. Diabetes mellitus with hyperglycemia.
Condition: Fair
Diet: Diabetic, Carb Controlled
Activity: As tolerated
Blood Work: Please PCP to order CBC, BMP within 1 week
Referrals:
Pauline Omalley CRNP [Specified Professional Personl, Cardiology] - 08/07/25 10:40 am
Argelia Norton MD [Active, Gastroenterology]
Referral Note: OP follow up for vomiting episodes, esophageal thickening, consider EGD and gastric emptying scan.
Adi Cooney DO [Family Provider, Family Practice] - in less than 1 week
Prescriptions:
New
carvedilol 6.25 mg Tablet
12.5 mg PO BID 30 Days Qty: 120 0RF
amlodipine 5 mg Tablet
5 mg PO DAILY 30 Days Qty: 30 0RF
pantoprazole 40 mg Tablet,Delayed Release (Dr/Ec)
40 mg PO DAILY 30 Days Qty: 30 0RF
hydralazine 50 mg Tablet
50 mg PO TID 30 Days Qty: 90 0RF
polyethylene glycol 3350 [Miralax] 17 gram/dose powder
4 g PO DAILY Qty: 119 0RF
Continued
clopidogrel 75 MG tablet
75 mg PO HS Qty: 0 0RF
atorvastatin 80 MG tablet
80 mg PO HS
aspirin 81 MG tablet,delayed release (DR/EC)
81 mg PO HS
metformin 500 mg Tablet
1,000 mg PO BID@0800,1700
lisinopril 40 mg tablet
40 mg PO DAILY
famotidine 40 mg tablet
40 mg PO HSPRN PRN (Reason: acid reflux)
tamsulosin 0.4 mg capsule
0.4 mg PO HS
Changed
insulin aspart U-100 100 unit/mL (3 mL) insulin pen
6 unit SC AC Qty: 0 0RF
insulin glargine [Basaglar KwikPen U-100 Insulin] 100 unit/mL (3 mL) insulin pen
14 unit SC HS Qty: 0 0RF
Discontinued
carvedilol 6.25 mg tablet
6.25 mg PO BID
Discharge Orders:
Discharge Patient (As Directed); Ordered 07/10/25
Ordered By: Deep Brenner
Discharge Date and Time
Discharge Date/Time: 07/10/25 19:21
Print Language: INDONESIAN
[2025-07-10] MEDS: MILK OF MAGNESIA 30 ML PO (10:56)
[2025-07-10 11:51] VITALS: BP 187/110
[2025-07-10 12:34] LABS: Glucose - Point of Care 105 mg/dl (70-99)
[2025-07-10] MEDS: NOVOLOG FLEXPEN-LOW RESISTANCE SC (12:34)
--- NOTE | 2025-07-10 14:33 | W.PN.GI.CBS2 ---
Today's Communication / Plan
-
continue PPI/ antiemetics
outpatient GI follow up
Assessment / Plan
-
This is a 65 year old male with a past medical history of IDDM, PAD (on Plavix), HTN, GERD and colon polyps with prior EMR with Dr. Coe AC 35mm polyp with stable follow up colonoscopies, diverticulitis previously diagnosed with cyclical
vomiting syndrome. In review with patient he has several admission over then years for nausea and vomiting. He admits symptoms started with diagnosis of diabetes about 7 years ago. hbgA1c has been as high as 12 range but recently 6-7 range. He
also admits to vape and occasional Marijuana use.He now presents recurrent episode of vomiting. CT on admission chronic circumferential thickening distal esophagus similar to prior from chronic inflammation. Also enlarged prostate with bladder
wall thickening with likely chronic outlet obstruction. In review with patient he admit to onset of mild odynophagia with vomiting episodes, abdominal pain with admission but now improving, chronic loose stool with prior bx neg but had been on
chronic metformin. He otherwise denies hematemesis, dysphagia, wt loss, rectal bleeding or constipation. + family hx father with colon Cancer.
-recurrent nausea and vomiting
-CT with circumferential esophageal thickening
-hx cyclical vomiting
-IDDM
-PAD on Plavix
-diarrhea
-HTN urgency
-hyponatremia
-leukocytosis
-elevated trop s/p cards eval
other medical problems:
-GERD
-hx colon polyps with prior EMR
-prior diverticulitis
PLAN:
Differential for his current symptoms-gastroparesis versus secondary to marijuana use vs etc. Patient is able to eat sandwich today
Small frequent meals. Low-fat low fiber diet
Antiemetics as needed
Good glycemic control
Avoid marijuana
Patient is currently on Plavix. Plavix needs to be held 5 days prior to any endoscopic evaluation. If he symptomatically better and tolerating diet will recommend outpatient endoscopy / GES with Dr. Norton ( last EGD 2019 )
Continue PPI for possible esophagitis
BP management as per medical team
No further GI recommendation. Will sign off. Outpatient GI follow-up-
Total Time Spent with Patient (in minutes): 35
Subjective
Subjective
Date of Service: July 10, 2025
Patient claims he ate some dinner last night without vomiting. He had dry heaving this a.m. with little amount of bilious substance came out. No BM-mag citrate was ordered by medical team
Objective
Data Reviewed
Laboratory Data:
Laboratory Results
07/09/25 05:48
07/09/25 05:48
Laboratory Results
Total Bilirubin 1.2 mg/dl (0.2-1.3) 07/07/25 13:52
AST 48 U/L (17-59) 07/07/25 13:52
ALT 50 U/L (0-50) 07/07/25 13:52
Alkaline Phosphatase 85 U/L (38-126) 07/07/25 13:52
Vital Signs and I&O:
Vital Signs
Temp Pulse Resp BP Pulse Ox
97.6 F 80 16 185/108 97
07/10/25 11:51 07/10/25 13:27 07/10/25 11:51 07/10/25 13:27 07/10/25 11:51
I&O
07/09/25 07/10/25 07/11/25
06:59 06:59 06:59
Intake Total 840 / 840
Output Total 1075 / 1075 1000 / 1000
Balance -235 / -235 -1000 / -1000
Physical Exam
Physical Exam
GI: Soft, Non Distended and Non Tender
[2025-07-10 15:30] VITALS: BP 155/92
--- NOTE | 2025-07-10 16:52 | CM ---
CM following for discharge planning. No identified needs at this time.
Discharge ordered, but then cancelled. CM to f/u in am.
[2025-07-10 17:11] LABS: Glucose - Point of Care 160 mg/dl (70-99)
--- NOTE | 2025-07-11 09:11 | CM ---
Patient medically cleared for discharge on 07/10/25 with no additional skilled needs. Patient arranged for transport home.
== END 2025-07-10 19:21 | disposition home or self-care (01) | DRG 305 ==
LOC: 3 WEST ACU 11:28
PROVIDERS: Nurse Practitioner; Nurse Practitioner Family; Student in an Organized Health Care Education/Training Program; ADMITTING PHYSICIAN Hospitalist; ATTENDING PHYSICIAN Hospitalist; CONSULT PHYSICIAN Internal Medicine Cardiovascular Disease; CONSULT PHYSICIAN Internal Medicine Gastroenterology; EMERGENCY PHYSICIAN Emergency Medicine; FAMILY PHYSICIAN Family Medicine
DX: I16.1 Hypertensive emergency (principal); E87.1 Hypo-osmolality and hyponatremia; I5A Non-ischemic myocardial injury (non-traumatic); E11.65 Type 2 diabetes mellitus with hyperglycemia; E11.43 Type 2 diabetes mellitus with diabetic autonomic (poly)neuropathy; E11.51 Type 2 diabetes mellitus with diabetic peripheral angiopathy without gangrene; K21.9 Gastro-esophageal reflux disease without esophagitis; K31.84 Gastroparesis; I10 Essential (primary) hypertension; Z86.0100 Personal history of colon polyps, unspecified; N40.0 Benign prostatic hyperplasia without lower urinary tract symptoms; Z80.0 Family history of malignant neoplasm of digestive organs; F41.9 Anxiety disorder, unspecified; I49.3 Ventricular premature depolarization; D64.9 Anemia, unspecified; E78.00 Pure hypercholesterolemia, unspecified; G40.909 Epilepsy, unspecified, not intractable, without status epilepticus; I25.10 Atherosclerotic heart disease of native coronary artery without angina pectoris; Z79.4 Long term (current) use of insulin; Z79.84 Long term (current) use of oral hypoglycemic drugs; Z79.899 Other long term (current) drug therapy; Z82.49 Family history of ischemic heart disease and other diseases of the circulatory system
CPT/HCPCS: 70450; 71046; 74177; 80048; 80053; 80061; 80306; 81003; 81015; 82077; 82533; 82962; 83036; 83835; 83930; 83935; 84300; 84443; 84484; 85025; 85027; 87040; 87070; 93005; 93306; 96361; 96374; 96375; 99291; Q9967